=== PATIENT | female | born 1970 | race Caucasian/White ===

== ENCOUNTER 2022-10-05 13:32 | Observation (INO) | payer OTHER, SELFPAY ==
--- NOTE | 2022-09-28 23:02 | HP.PCM_ITS ---
History and Physical Date of Admission: 09/29/22 HISTORY OF PRESENT ILLNESS 52 year old woman presents with increasing pain and redness and swelling right axilla that started a couple months ago.? She has had I&D procedures by Dr. Arita.? She works in Housekeeping at [employer] and states she may be allergic to the chemicals used for cleaning.? She has a history of eczema and had been on Dupixent in the past.? She thinks the eczema has worsened recently since the development of her right axillary hidradenitis.? She has an appointment to see a Chairperson Anesthesiology for this eczema.? At present, she denies fever.? She denies trauma.? She has had some drainage from the right axillary area when there is a flare up of the hidradenitis.? She presents at this time for further evaluation and treatment. PAST MEDICAL HISTORY Bunion Eczema Seasonal allergies PAST SURGICAL HISTORY History of bunionectomy ALLERGIES azithromycin clindamycin MEDICATIONS doxycycline hyclate oxycodone-acetaminophen (Percocet) FAMILY HISTORY Son - Epilepsy, Seizures SOCIAL HISTORY Smoking Status:? Never smoker alcohol intake:? never substance use type:? does not use REVIEW OF SYSTEMS General - Denies fever, fatigue, and weight loss. Eyes - Denies cataracts and glaucoma. ENT - Denies nasal congestion and sore throat.? Has chronic sinusitis. Endocrine - Denies excessive thirst and urination. Skin - Denies suspicious lesions and skin cancer. ? Has right axillary hidradenitis. ? Has intermittent eczema flare ups. Musculoskeletal - Denies joint pain, joint stiffness, weakness of muscles and joints, back pain, and arthritis. Neuro - Denies headaches. Cardiovascular - Denies chest pain, fatigue, and shortness of breath with exertion. Psych - Denies anxiety and depression. Respiratory - Denies chronic cough and shortness of breath. Gastrointestinal - Denies nausea, vomiting, diarrhea, and constipation. Hematologic - Denies abnormal bruising and bleeding.? Has anemia. Genitourinary - Denies hematuria and urinary frequency. PHYSICAL EXAMINATION General - Alert and Oriented. HEENT - PERRL. EOMI.? Throat is clear.? No suspicious lesions noted. Neck - Supple and nontender.? No cervical adenopathy. ? No suspicious lesions noted. Lungs - Clear to auscultation. Heart - Regular rate and rhythm. Abdomen - Soft and nondistended. Extremities - FROM. No axillary adenopathy.? Radial pulses are palpable. ? In the right axilla is an area of redness, induration, and pain indicative of flare up of hidradenitis. ? I could not express drainage today.? The area of infection measures 6 x 8 cm.? No fluctuance.? No purulent drainage.? No other suspicious lesions noted. Neuro - CN II-XII grossly intact. Psych - Normal mood and affect. ASSESSMENT 1.? Right axillary hidradenitis. 2.? Eczema. PLAN Patient has right axillary hidradenitis with associated pain.? With the extent of scarring and induration and pain, I recommend operative intervention with surgical preparation right axilla with excision hidradenitis. Tissue would be sent to Pathology for analysis to rule out carcinoma and to Microbiology for culture.? A positive culture will necessitate antibiotic therapy. The wound will be left open and wound care started with the VAC which gets changed three times per week at 150 mmHg continuous suction. Will schedule the surgery in the next couple of weeks under general anesthesia with a surgical observation overnight stay in the hospital. After discharge, will followup at the Wound Center.? If there is a plateau in the healing process, can proceed with delayed closure with skin grafting. Today I just placed dry ABD pad over the axillary hidradenitis. She has an appt with her Chairperson Anesthesiology within a month for her eczema. Will write a script for Doxycycline which she will take now until the surgery and also will use for flare ups of hidradenitis in the future. Will write a script for Percocet for pain (14 tabs), twice a day. Patient was informed of the risks and complications of the procedure including alternatives to surgery.? These were discussed with the patient personally.? Patient voices understanding and wishes to proceed. Some of the risks and complications were included in a form from the [place] [employer]. Potential risks and complications included but not inclusive of bleeding, infection, seroma, hematoma, bruising, swelling, prolonged need for drains, loss of sensation to skin, wound breakdown, need for wound care, poor scarring, poor aesthetic outcome, intra operative cardiac or neurologic events, DVT, PE, and reaction to anesthesia. Assessment & Plan Assessment/Plan (1) Right axillary hidradenitis: (2) Eczema:
[2022-09-29 11:51] VITALS: BP 136/89; PULSE 73; RESP 16; TEMP 36.6; O2SAT 100; BMI 20.9
[2022-09-29] MEDS: Lactated Ringers 1,000 ML 15 ML IV (11:53)
[2022-10-05] VITALS (11 sets, daily range): BP systolic 106–148; BP diastolic 62–95; PULSE 59–96; RESP 16–20; TEMP 36.7–37.3; O2SAT 96–100; BMI 21.3
--- NOTE | 2022-10-05 | HID_PTH ---
PATIENT: KRISTIN SOTO LOC: MS3 U#:[id number] AGE/SX: 52/F ROOM: [facility] RE10/05/[address]: Dr. Sahil Morris MD : 1970 BED: 1 DIS: 10/06/2022 SPEC #: [id number] RECD: 10/05/22 16:54 STATUS: ADAN AL #: [id number] JULI: 10/05/22 00:[address]: Sahil Morris DEPT: SURGICAL PATHOLOGY RECD BY: Stuart Petty ENTERED: 10/06/22 09:49 SP TYPE: Hidradenit PAMELA DR: Nancy Wynn, ADY-Korey Tissues: Axillary tail of breast Procedures: Surgery Specimen Level III HEADER OPERATION: Surgical preparation axilla with excision hidradenitis PRE-OP DIAGNOSIS: Right axillary hidradenitis, eczema TISSUE SUBMITTED: Right axillary hidradenitis MICROSCOPIC DIAGNOSIS Skin and soft tissue of right axilla, excision: Dilated sweat glands and focal changes consistent with hidradenitis. AM:tara 10/09/2022 MICROSCOPIC DESCRIPTION Slides are reviewed. GROSS DESCRIPTION Received in fixative is one container labeled with the patient's name and designated right axillary hidradenitis. The specimen consists of a piece of skin with underlying tissue measuring 8.0 x 4.2 x 1.0 cm. No skin lesion is identified. Sections do not reveal any mass lesion. Aircraft Delivery Checker sections are submitted in four cassettes. / ALBERT:tara 10/06/2022 TC:3 CPT: 67424
[2022-10-05] MEDS: Lactated Ringers 1,000 ML 15 ML IV (10:57)
[2022-10-05] MEDS: Cefazolin 2 GM in 0.9% Normal Saline 100 ML IV (12:48)
[2022-10-05] MEDS: Lidocaine 1% /Epi 1:100 (20ml) 20 ML Vial (13:23)
--- NOTE | 2022-10-05 13:31 | PCM.OPRPT ---
Problems Associated Problem List Diagnoses (1) Right axillary hidradenitis: (2) Open wound of right axillary region: Report of Operation Date of Procedure: 10/05/22 Pre-Operative Diagnosis: Right axillary hidradenitis. Post-Operative Diagnosis: 1. Right axillary hidradenitis. 2. Open surgical hidradenitis wound right axilla. Surgery/Procedure Performed:: Surgical preparation right axilla with excision hidradenitis (60 cm2). Description of Surgical Findings:: 52 year old woman presents with increasing pain and redness and swelling right axilla that started a couple months ago.? She has had I&D procedures by Dr. Arita.? 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 She has a history of eczema and had been on Dupixent in the past.? She thinks the eczema has worsened recently since the development of her right axillary hidradenitis.? She has an appointment to see a Extended Insurance Clerk for this eczema.? At present, she denies fever.? She denies trauma.? She has had some drainage from the right axillary area when there is a flare up of the hidradenitis.? Patient was informed of the risks and complications of the procedure including alternatives to surgery. These were discussed with the patient personally. Patient voices understanding and wishes to proceed. Some of the risks and complications were included in a form from the [place] [employer]. Potential risks and complications included but not inclusive of bleeding, infection, hematoma, bruising, swelling, loss of sensation to skin, wound breakdown, need for wound care, poor scarring, poor aesthetic outcome, intra operative cardiac or neurologic events, DVT, PE, and reaction to anesthesia. Size of wound right axilla - 10 x 6 x 2 cm. Surgeon: Sahil Morris MD clinic nurse: None Type of Anesthesia: General Anesthesiologist: Ramón Harrison MD and Rodolfo Valverde CRNA Specimen's removed: Right axillary hidradenitis tissue to Pathology and Microbiology. Drains: None. Estimated Blood Loss (mL): 50. Description of Procedure: Patient was taken to OR in supine position and was placed under general anesthesia. The right axillary area was prepped and draped in the usual fashion. SCD's were placed for DVT prophylaxis. Perioperative antibiotics were given intravenously. Using xylocaine with epinephrine, the area of hidradenitis right axilla was infiltrated. After waiting 5 minutes for the anesthetic to take effect, I proceeded with surgical preparation right axilla with excision hidradenitis. Incisions were made into the subcutaneous tissue. No pus was seen. A lot of fat necrosis was present which was excised and debrided. Some exudate was seen as well that was excised and debrided. Dissection extended down to the muscle with some proximal extension onto the right arm. Some of the tissue was sent to Microbiology for culture. The rest of the tissue was sent to Pathology for analysis to rule out carcinoma. Hemostasis was obtained with electrocautery. The wound was irrigated with saline. The dimensions of the right axillary hidradenitis wound after excision was 10 x 6 x 2 cm or 60 cm2. The wound was dressed with Mepitel nonadherent dressing followed by Kerlix gauze and Betadine. This was followed by a dry Kerlix gauze and an ABD pad and a compression connie wrap. Medipore tape was used to secure the Kerlix gauze as well as to secure the connie wrap proximally and minimize the dressing from sliding downward. Patient tolerated the procedure well and was sent to PACU in satisfactory condition. Patient will be sent upstairs for continued postop care. The VAC will be applied tomorrow. She can be discharged when she is tolerating po analgesia and when the VAC is approved. Home Health will be set up to assist with the VAC changes. After discharge she will followup at the Wound Center. Anticipate in about 3-4 weeks, the open surgical hidradenitis wound will be superficial enough to proceed with further operative debridement and skin grafting. If the operative culture is positive than antibiotic modification may be necessary. Depending on the organism present, IV antibiotics may be necessary through a PICC line. Grafts/Implants Used: None. Procedure Start Time: 13:10 Procedure Stop Time: 13:28 Complications None. Admit VTE Documentation VTE Present on Admission: No VTE Mechan Device Prophylaxis: SCD's VTE Pharm Prophylaxis ordered?: Yes Addendum Addendum: Surgery Charges CPT - 16529 ICD-10 - L73.2, S41.101A
[2022-10-05] MEDS: Ondansetron 4 MG/2 ML Vial IV (17:02)
[2022-10-05] MEDS: Docusate Sodium 100 MG Capsule PO (20:16)
[2022-10-05] MEDS: Cefazolin 1 GM/50 ML BAG IV (22:01)
[2022-10-06 03:27] VITALS: BP 125/70; PULSE 67; RESP 18; TEMP 36.9; O2SAT 98
[2022-10-06] MEDS: Cefazolin 1 GM/50 ML BAG IV ×2 (05:35→13:59)
[2022-10-06 06:16] LABS: Hematocrit 36.2 % (37-47); Hemoglobin 11.5 g/dL (12.0-15.0); Mean Corp Hgb Conc 31.8 g/dL (32-36); Mean Corpuscular Hgb 25.8 pg (27.0-32.0); Mean Corpuscular Volume 81.2 fL (81-99); Mean Platelet Vol. 9.8 fl (6.2-12.0); Platelet Count 265 K/mm3 (150-450); RBC Distribution Width CV 13.6 % (11.6-14.6); Red Blood Count 4.46 M/mm3 (4.2-5.4); White Blood Count 7.7 K/mm3 (4.4-11.0)
[2022-10-06 07:25] LABS: Anion Gap 7 (5-15); BUN 9 mg/dL (7-18); BUN/Creat Ratio 12.9 RATIO (10-20); Chloride 106 mmol/L (98-107); EST Glomerular Filtration Rate 94 mL/min (>60); Est Glom Filt Rate - Afr Amer 114 mL/min (>60); Estimated Creatinine Clearance 85.56 ml/min; Glucose 134 mg/dL (74-106); Potassium 3.9 mmol/L (3.5-5.1); Prealbumin 26.8 mg/dL (20.0-40.0); Sodium Level 136 mmol/L (136-145)
[2022-10-06 07:47] VITALS: BP 124/85; PULSE 75; RESP 18; TEMP 36.6; O2SAT 98
[2022-10-06] MEDS: Enoxaparin 40 MG/0.4 ML Syringe SC (08:03)
[2022-10-06] MEDS: Juven (unflavored) Packet 1 PACKET PO (08:03)
--- NOTE | 2022-10-06 08:45 | CASEMGMT ---
Addendum entered by Federica Guerrero 10/06/22 13:57: Received denials from [facility] Sherri, Tara, Lisa, [facility], and [facility]. [facility] to [place] but can see pt in her home in [place]. ERICA SCHUSTER into pt room to discuss this. Pt states she will plan to stay with her parents over the weekend only then return home and her mother will come to her home. She does not want to be alone initially. Pt is aware she needs to be at her home in [place] for visits not just coming home for them. Pt is aware that she has not met her deductible yet and this needs to be done prior to [facility] visits being covered. Approx $1662 is left. Pt is agreeable to this. Pt denies further needs. Spoke with ADY Lundberg. She will see pt at the wound center on Wednesdays. Pt is aware. TC to Sita, they will see pt on Sunday for wound vac change. Addendum entered by Federica Guerrero 10/06/22 10:18: Received tc back from pt mother. She states to send referral to agencies starting at top of list and she has no preference of agency. Addendum entered by Federica Guerrero 10/06/22 09:49: TC to pt mother, she is not at home, gave call back info and requested call back. Original Note: ERICA SCHUSTER Assessment: Face to Face with pt for initial transition planning/care coordination assessment. ERICA SCHUSTER introduced self and role at [facility], pt voices understanding and consents to assessment. Pt is A/O x4 and answers all questions appropriately at this time. Pt sitting up in bed in no distress. Care providers, pharmacy, and demographics verified/updated. Admitting Dx: Rt excision hidradenitis axilla PCP:[facility] Specialists:Arturo, plastic OR; Juan J, OR Preferred Pharmacy: [facility] Retail Insurance: MMO Prescription Benefit: yes LNOK: Mic and Nargis Granado, parents Living Arrangements: Pt will be staying at her parents home which is a two story home with no steps to enter. Pt reports she is I in ADL's and denies concerns at home. Transportation: Pt drives self and denies concerns with transportation. DME/HHC/SNF: Pt denies having any DME in the home, previous HHC or SNF stays. Pt states no concerns with going home at time of dc. Discussed HHC for wound vac for pt. Patient was provided a list of HHC providers including quality and resource use data and consistent with the patient?s preferred geographic region, medical needs, and insurance network were provided from the [employer] Guide. Pt would like this RN CM to call her mother to pick the agency for her and requests the call be after 9:30am. Pt states no further concerns/needs. CM to follow. Advised pt to ask CM if any further question/concerns/needs arise, voices understanding. Pt Goal: To parents home with HHC Plan: To parents home with HHC, wound vac already approved.
--- NOTE | 2022-10-06 08:49 | WOUNDNOTE ---
wound photo: right axilla
[2022-10-06] MEDS: Acetaminophen 325 MG Tablet 650 MG PO (12:21)
--- NOTE | 2022-10-06 13:56 | PCM.DC ---
Discharge Instructions Diet Discharge Diet: No restrictions (encourage increased protein intake to help with wound healing) Activity Discharge Activity: May Not Shower May resume sexual activity in: 10-14 days Lifting Restrictions: 20 lb weight lifting restriction Additional Activity Instructions:: May drive when not taking pain medication or Diazepam Dressing / Incision Call your doctor if your incision/area has: Continuous Slow Oozing, Sudden Increased Bleeding, Increased Pain/ Swelling, Increased Redness and Foul Smelling Discharge Call your doctor if you observe: Fever of 101 or Higher, Inability to urinate, Inability to have a bowel movement, Shortness of breath, Chest pain, Calf discomfort and Uncontrolled pain Change Dressing in: do not change dressing Additional Dressing/Incision Instructions:: Wound VAC at 150 mmHg to be changed 3 times per week. At the time of dressing change, wash the wound and tia wound with soap and water. May shower before the dressing change when you feel comfortable removing the wound VAC dressing. Follow Up Care Please Follow Up With: Tamika Pimentel NP, TESTING PROJECTS ADMINISTRATOR-C When: Sunday at 8:30 at the wound center. The wound healing center phone number is [phone]. Test Results: Test results from this visit will be discussed in further detail at your follow-up appointment, if applicable. Discharge Plan Admission Admit Date/Time: 10/05/22 13:32 Attending Provider: Sahil Morris Primary Care Provider: Nancy Wynn NP Discharge Orders/Prescriptions Prescriptions: New doxycycline monohydrate 100 mg tablet 100 mg PO BID 14 Days Qty: 28 1RF oxycodone-acetaminophen [Endocet] 5-325 mg tablet 1 tab PO 4X/DAY PRN (Reason: pain (scale score 7-10)) 7 Days Qty: 28 0RF docusate sodium [Colace] 100 mg capsule 100 mg PO BID 30 Days Qty: 60 0RF promethazine 25 mg tablet 25 mg PO TID PRN (Reason: nausea and vomiting) 10 Days Qty: 30 0RF Referrals / Follow Up: Nancy Wynn NP, ADY-C [Primary Care Provider] - Disposition Disposition (needs filled in before D/C Order can be placed): Home, Self Care
[2022-10-06 14:01] VITALS: BP 121/73; PULSE 74; RESP 16; TEMP 36.6
--- NOTE | 2022-10-06 15:24 | PCM.PN.SRG ---
Subjective Subjective Postop #1 Patient sitting up in chair. She states that her pain is well controlled. Objective Data Objective Data Vital Signs: Vital Signs Temp Pulse Resp BP Pulse Ox O2 Del Method 97.8 F 74 16 121/73 H 98 Room Air 10/06/22 14:01 10/06/22 14:01 10/06/22 14:01 10/06/22 14:01 10/06/22 07:47 10/06/22 14:01 Oxygen Delivery Method Room Air Weight: 128 lb 4.944 oz Body Mass Index (BMI) 21.3 Intake & Output: Intake and Output for Last 24 Hours 10/04/22 10/05/22 10/06/22 23:59 23:59 23:59 Intake Total 580 / 580 100 / 100 Output Total 50 / 50 Balance 530 / 530 100 / 100 Lab / Micro Data Result Diagrams: 10/06/22 06:10 10/06/22 06:10 Labs: Laboratory Results - last 24 hr 10/06/22 06:10: WBC 7.7, RBC 4.46, Hgb 11.5 L, Hct 36.2 L, MCV 81.2, MCH 25.8 L, MCHC 31.8 L, RDW Std Deviation 40.0, RDW Coeff of Paul 13.6, Plt Count 265, MPV 9.8 10/06/22 06:10: Sodium 136, Potassium 3.9, Chloride 106, Carbon Dioxide 23.0, Anion Gap 7, BUN 9, Creatinine 0.70, Estim Creat Clear Calc 85.56, Est GFR (MDRD) Af Amer 114, Est GFR (MDRD) Non-Af 94, BUN/Creatinine Ratio 12.9, Glucose 134 H, Calcium 9.0, Prealbumin 26.8 Micro: Microbiology 10/05/22 13:45 Tissue - Axilla, Right Wound Culture - Preliminary No growth-Final to follow Physical Exam Const alert and oriented x3 General Appearance: cooperative Eyes General Eye: normal appearance of both eyes Resp normal respiratory effort Effort and Inspection: able to speak in complete sentences Cardio regular rate Back/Spine normal ROM Extremity normal capillary refill Skin Wound Narrative: Right axilla wound with no active bleeding. Operative dressing removed and wound VAC placed. Neuro oriented x3 Psych mental status grossly normal, thought process normal and cooperative Assessment & Plan Assessment/Plan (1) Open wound of right axillary region: (2) Right axillary hidradenitis: (3) Other acute postprocedural pain: PLAN: Plan Patient states pain is controlled with oral pain medication. Operative dressing removed, no active bleeding. Wound VAC at 150 mmHg applied. She tolerated the dressing change well. Home health has been ordered to help with dressing changes 3 times per week. Operative wound cultures are pending. Will send her home on Doxycycline 100 mg BID. Prescribed Percocet 5 mg (28 tabs) to be taken up to 4 x/day as needed for pain. Unable to prescribe Valium for muscle spasm due to her allergy to Midazolam. She is to follow up on Sunday10/11/22 at 0830 at the Wound center with me for evaluation and a wound VAC change. She may be discharged home today once home health is established.
== END 2022-10-06 17:01 | disposition home health service (06) ==
LOC: SDC 15:36 → MS3 15:36
PROVIDERS: Admitting Provider Surgery; PCP Nurse Practitioner Family; Referring Provider Surgery; Visit Provider Surgery
PROC: (CPT 11451; principal; 2022-10-05 11:45)
DX: L73.2 Hidradenitis suppurativa (principal); L30.9 Dermatitis, unspecified
CPT/HCPCS: 11451; 00400; 36415; 80048; 84134; 85027; 87070; 87075; 87077; 87102; 87176; 87186; 87205; 87206; 88304; 94668; 96365; 96366; 96372; 96375; 97165; 99221; J7120; G0378; J2405

== ENCOUNTER 2022-10-18 08:30 | Outpatient (RCR) | payer OTHER, SELFPAY ==
[2022-10-11 08:37] VITALS: BP 132/82; PULSE 89; RESP 16; TEMP 36.2; BMI 21.1
--- NOTE | 2022-10-11 09:21 | PCM.WC.HP ---
History of Present Illness Date of Service: 10/11/22 Chief Complaint: right axilla Hidradenitis excision History of Wound: 52 year old woman presents with increasing pain and redness and swelling right axilla that started a couple months ago. She has had I&D procedures by Dr. Arita. 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 She has a history of eczema and had been on Dupixent in the past. She thinks the eczema has worsened recently since the development of her right axillary hidradenitis. She saw a Environmental Web Crawler for the eczema. Surgery 10/05/22 - Surgical preparation right axilla with excision hidradenitis (60 cm2). She was discharged on 10/06/22 with home health to assist with the wound VAC dressing changes 3 times per week. Preliminary operative cultures positive for Staphylococcus epidermidis. Waiting for sensitivities. She is currently on Doxycycline. At present, she denies fever, chills, nausea, vomiting. Progress of Wound: Right axilla incision is pink. No active bleeding. Mariaelena wound is stable. She is very anxious. She is also complaining about her pink eye getting bad again. They are red and itchy, she has been using eye drops for about a week and she states initially they got better and now they have gotten worse. [facility] Medical History Anemia Anxiety Bunion Eczema Non-smoker Open wound of right axillary region Post-menopausal Restless legs Seasonal allergies Wears glasses Home Medications docusate sodium 100 mg capsule (Colace) 100 mg PO BID 30 days #60 caps 10/06/22 [Rx Last Taken Unknown] doxycycline monohydrate 100 mg tablet 100 mg PO BID 14 days #28 tabs 10/06/22 [Rx Last Taken Unknown] oxycodone-acetaminophen 5 mg-325 mg tablet (Endocet) 1 tab PO 4X/DAY PRN pain (scale score 7-10) 7 days #28 tabs 10/06/22 [Rx Last Taken Unknown] promethazine 25 mg tablet 25 mg PO TID PRN nausea and vomiting 10 days #30 tabs 10/06/22 [Rx Last Taken Unknown] linezolid 600 mg tablet 600 mg PO Q12H 14 days #28 tabs 10/12/22 [Rx Last Taken Unknown] diazepam 5 mg tablet (Valium) 5 mg PO BID PRN muscle spasm 7 days #14 tabs 10/13/22 [Rx Last Taken Unknown] gabapentin 100 mg capsule (Neurontin) 200 mg PO BID 30 days #120 caps 10/13/22 [Rx Last Taken Unknown] Allergy/AdvReac Type Severity Reaction Status Date / Time azithromycin Allergy Intermediate Hives Verified 10/11/22 08:55 clindamycin Allergy Intermediate Hives Verified 10/11/22 08:55 midazolam [From Versed] Allergy Rash Verified 10/11/22 08:55 Family History (Reviewed 10/13/22 @ 17:08 by Tamika Pimentel BENCH LAY OUT TECHNICIAN, BENCH LAY OUT TECHNICIAN-C) Son Epilepsy Seizures Surgical History (Reviewed 10/13/22 @ 17:08 by Tamika Pimentel BENCH LAY OUT TECHNICIAN, BENCH LAY OUT TECHNICIAN-C) History of bunionectomy Social History (Reviewed 10/13/22 @ 17:08 by Tamika Pimentel BENCH LAY OUT TECHNICIAN, BENCH LAY OUT TECHNICIAN-C) Smoking Status: Never smoker alcohol intake: never substance use type: does not use additional social history: Does Take Aspirin Does Take Ibuprofen ROS Constitutional Constitutional: Denies fever(s) Eyes Eyes: Reports none ENT HEENT: Reports none Cardiovascular Cardiovascular: Denies chest pain or dyspnea Respiratory/Chest Respiratory/Chest: Denies cough or dyspnea Gastrointestinal Gastrointestinal: Reports none Musculoskeletal Musculoskeletal: Reports as per HPI Integumentary Integumentary: Reports as per HPI Neurologic Neurologic: Denies headache(s) Psychiatric Psychiatric: Reports anxiety Endocrine Endocrinology: Reports none Allergic/Immunologic Allergic/Immunologic: Reports as per HPI and eczemia Vital Signs Vital Signs Vital Signs: 10/11/22 08:37 Temperature 97.2 F L Temperature Source Temporal Pulse Rate 89 Respiratory Rate 16 Blood Pressure 132/82 H Blood Pressure Mean 98 Blood Pressure Source Monitor Weight Weight: 126 lb 12.519 oz Body Mass Index (BMI) 21.1 Physical Exam Const alert and oriented x3 General Appearance: cooperative and anxious Orientation / Consciousness: awake, oriented to person and oriented to place HEENT normocephalic Head and Scalp: atraumatic Eyes Eyes Narrative: Bilateral eye with pink sclera and conjunctiva. They are itchy and she keeps rubbing them. Neck full ROM Resp normal respiratory effort, normal air movement and clear to auscultation bilaterally Effort and Inspection: able to speak in complete sentences Cardio regular rate and regular rhythm GI soft to palpation and non-tender Back/Spine normal ROM Extremity Extremity Narrative: She is not doing full range of motion of right shoulder due to pain. Peripheral Pulses: Yes pulses 2+ throughout Skin Wound Narrative: Right axilla wound is pink and stable. Neuro oriented x3 Psych cooperative Psych Narrative: Patient is very anxious about the ulcer and the care. Appearance: grossly normal Mood & Affect: anxious Debridement Note Debridement Note Wound debrided: axilla Laterality: Right No debridement was completed: No debridement was completed today Post-Debridement Measurements and Additional Note: Post-Debridement Measurements/Treatment - Nurse 1 - General Ulcer Assessment Start: 10/11/22 08:36 Freq: Status: Active Protocol: JOSÉ Activity Type Activity Date Activity User E-sign Co-sign Detail Recorded Client Recorded Date Recorded By Document 10/11/22 08:37 DL [id number] 10/11/22 08:50 DL 10/11/22 08:37 WC - Today's Visit Information Type of service Initial Visit Arrival Mode Ambulatory Transfer Assistance None Patient Identification Verified (Name & Yes ) Patient Requires Transmission-Based No Precautions Height and Weight Height 5 ft 5 in Weight 126 lb 12.519 oz Weight in Pounds 126.8 lbs Body Mass Index (BMI) 21.1 BMI Classification Normal BSA - Michael 1.63 Vital Signs Temperature (97.8 F-99.1 F) 97.2 F L Temperature Source Temporal Pulse Rate (60-100) 89 Pulse Location Monitor Respiratory Rate (12-18) 16 Respiratory rate source Observation Blood Pressure (90/60-120/80) 132/82 H Blood Pressure Mean 98 Source Monitor Pain Scale: 0-10 Numeric Is Patient Pain Free? Yes Communication Assessment Preferred language Belarusian Able to Read Yes Able to Write Yes Right Hearing Abillity Normal Left Hearing Abillity Normal Visual Assistive Devices Glasses Teaching Assessment Preferences Verbal,Written, Demonstration Barriers to Learning None Readiness To Learn Good Willingness to Engage in Self Management Med Activies Readiness to Engage in Self Management Med Activities Anxiety Level Anxious Cooperation Cooperative Perception Coherent Interest in Health Problem Asks Questions Education Importance Acknowledges Need Does Patient Smoke tobacco or other No substances Smoking Status Never smoker Is Patient Diabetic No Functional Assessment Recent Decline in Ability to Perform Denies Any Declines,Upper Body Dressing Culture/Amish/Senior Peoplesoft Developer Cultural/Amish Needs that may affect No Treatment Plan Would you allow our hospital power station operator to No meet you for the purpose of spiritual/ emotional support? Senior Peoplesoft Developer to contact place of latter day No Teaching: Wound Center Discharge Instructions -Person Taught Patient Dressing Your Wound -Person Taught Patient *Welcome to the Wound Center -Person Taught Patient WC - Nurse 1 - General Ulcer Measurement Start: 10/11/22 08:36 Freq: Status: Active Protocol: Activity Type Activity Date Activity User E-sign Co-sign Detail Recorded Client Recorded Date Recorded By Document 10/11/22 08:37 DL [id number] 10/11/22 08:50 DL 10/11/22 08:37 Wound Center Nurse 1 #1 R Axilla -Current Size (cm) - Length 6 -Current Size (cm) - Width 5 -Current Size (cm) - Depth 2.3 -Total Square Cm 30 -Photo Taken Yes -Exudate Amt Medium -Exudate Type Serosanguineous -Wound Margin Distinct, Outline Attached -Granulation Amt Medium (34-66%) -Granulation Quality Red -Necrosis Amt Medium (34-66%) -Necrotic Tissue Type Adherent Slough -Structure Exposed N/A -Texture (Mariaelena-wound Skin Appearance) Excoriation, Scarring,Rash -Moisture (Mariaelena-wound Skin Appearance) No Abnormality -Color (Mariaelena-wound Skin Appearance) No Abnormality -Temperature (Mariaelena-wound Skin No Abnormality Appearance) (Pt Warm) -Ulcer Cleansing Soap and Water -Foul Odor after Cleansing No -Anesthetic Used 4% Lidocaine Solution WC - Nurse 2 - General Ulcer CM Notes Start: 10/11/22 08:36 Freq: Status: Active Protocol: Activity Type Activity Date Activity User E-sign Co-sign Detail Recorded Client Recorded Date Recorded By Document 10/11/22 09:05 JF [id number] 10/11/22 09:12 JAIME 10/11/22 09:05 Wound Center Nurse 2 -Correct Patient No -Correct Side, Site, Position No -Correct Procedure No -Procedure Performed No -Wound/Ulcer Outcome Not Healed Pain Scale: 0-10 Numeric Is Patient Pain Free? Yes Charges/Coding Procedures Integumentary 111xxx-113xx: 22081 Global Visit Assessment/Plan Assessment/Plan (1) Open wound of right axillary region: CODE(S): S41.101A - Unspecified open wound of right upper arm, initial encounter (2) Right axillary hidradenitis: CODE(S): L73.2 - Hidradenitis suppurativa (3) Other acute postprocedural pain: CODE(S): G89.18 - Other acute postprocedural pain PLAN: Plan Patient evaluated at the wound healing center today. Wound care - Wound VAC at 150 mmHg to be changed 3 times per week. The wound and mariaelena wound should be washed with soap and water at the time of the dressing changes and then pat dry. She forgot to bring foam for the VAC to be replaced. Will place Dakins 0.25% moistened gauze covered with ABD. Home health can place VAC dressing tomorrow and then a change on Sunday. Preliminary operative culture shows Staphylococcus epidermidis, waiting for sensitivity. She is currently on Doxycycline. Encouraged range of motion of her right shoulder to help prevent her shoulder from getting stiff. She is having difficulty with full ROM of her right shoulder. Demonstrated how she should move her shoulder. Instructed her to contact her eye doctor for an appointment either today or tomorrow to have her eye irritation evaluated. Instructed her to stop the antibiotic eye drops and start OTC moisturizing eye drops. She is extremely anxious. She is having a difficult time understanding instructions because she is so anxious. Discussed starting her on Lexapro at least for a short period of time to help her get through this situational stress. Follow up one week. Call or come in sooner if have any concerns.
--- NOTE | 2022-10-17 07:34 | WC ---
Dianelys from [facility] called to inform us about a drug interaction she ran on patient's new Linezolid about interaction with tyramine foods processed meats. Spoke to Tamika Pimentel QUARTER BACKER about this who did discuss with pharmacy and they said with her being on the new ATB, she is to avoid cured, smoked processed meats like sausage, hot dogs, lunch meat including foods like pickled foods. Basically stick with fresh meats. Called Dianelys back to inform her on the new findings and to have the patient educated on Weds visit these new findings. Left a detailed voicemail on Dianelys's confidential work phone.
[2022-10-18 08:33] VITALS: BP 135/89; PULSE 71; RESP 20; TEMP 36.1; BMI 21.1
--- NOTE | 2022-10-18 09:42 | PCM.WC.PN ---
History of Present Illness Date of Service: 10/18/22 Chief Complaint: right axilla Hidradenitis excision History of Wound: 52 year old woman presents with increasing pain and redness and swelling right axilla that started a couple months ago. She has had I&D procedures by Dr. Arita. 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 She has a history of eczema and had been on Dupixent in the past. She thinks the eczema has worsened recently since the development of her right axillary hidradenitis. She saw a Middleware Consultant for the eczema. Surgery 10/05/22 - Surgical preparation right axilla with excision hidradenitis (60 cm2). She was discharged on 10/06/22 with home health to assist with the wound VAC dressing changes 3 times per week. Preliminary operative cultures positive for Staphylococcus epidermidis. Waiting for sensitivities. She is currently on Doxycycline. At present, she denies fever, chills, nausea, vomiting. Progress of Wound: Right axilla incision is pink and stable. No active bleeding. Mariaelena wound is erythematous because when her wound VAC was placed on Sunday, they did not place drape on her skin before bridging the foam, therefore the foam caused irritation to her skin. She has very sensitive skin. She continues to be very anxious. She saw her senior informatica etl developer and she is having an allergic reaction and they gave her different eye drops. Objective Data Objective Data Vital Signs: Vital Signs Temp Pulse Resp BP 97 F L 71 20 H 135/89 H 10/18/22 08:33 10/18/22 08:33 10/18/22 08:33 10/18/22 08:33 Weight: 126 lb 12.519 oz Body Mass Index (BMI) 21.1 Charges/Coding Procedures Integumentary 111xxx-113xx: 70568 Global Visit Debridement Note Debridement Note No debridement was completed: No debridement was completed today Post-Debridement Measurements and Additional Note: Post-Debridement Measurements/Treatment WC - Nurse 1 - General Ulcer Assessment Start: 10/11/22 08:36 Freq: Status: Active Protocol: JOSÉ Activity Type Activity Date Activity User E-sign Co-sign Detail Recorded Client Recorded Date Recorded By Document 10/11/22 08:37 DL [id number] 10/11/22 08:50 DL Document 10/18/22 08:33 DL [id number] 10/18/22 08:43 DL 10/11/22 10/18/22 08:37 08:33 WC - Today's Visit Information Type of service Initial Visit Follow-up Visit (Physician/HAND FUR CLEANER ) Arrival Mode Ambulatory Ambulatory Transfer Assistance None None Patient Identification Verified (Name & Yes Yes ) Patient Requires Transmission-Based No No Precautions Height and Weight Height 5 ft 5 in Weight 126 lb 12.519 oz Weight in Pounds 126.8 lbs Body Mass Index (BMI) 21.1 21.1 BMI Classification Normal Normal BSA - Michael 1.63 Vital Signs Temperature (97.8 F-99.1 F) 97.2 F L 97 F L Temperature Source Temporal Temporal Pulse Rate (60-100) 89 71 Pulse Location Monitor Monitor Respiratory Rate (12-18) 16 20 H Respiratory rate source Observation Observation Blood Pressure (90/60-120/80) 132/82 H 135/89 H Blood Pressure Mean (mm Hg) 98 104 Source Monitor Monitor History Since Last Visit- (Skip if this is Patient's initial visit) Have you changed medications since your No last visit? Any new allergies or adverse reactions No Had a fall/change in ADL's that may No increase risk of falls Signs or symptoms of abuse and/or No neglect since last visit Have you been in the hospital since your No last visit? Has dressing in place as prescribed Yes Has compression in place as prescribed N/A Has offloadiing in place as prescribed N/A Experienced any changes in pain level or No management Pain Scale: 0-10 Numeric Is Patient Pain Free? Yes Yes Communication Assessment Preferred language Croatian Able to Read Yes Able to Write Yes Right Hearing Abillity Normal Left Hearing Abillity Normal Visual Assistive Devices Glasses Teaching Assessment Preferences Verbal,Written, Demonstration Barriers to Learning None Readiness To Learn Good Willingness to Engage in Self Management Med Activies Readiness to Engage in Self Management Med Activities Anxiety Level Anxious Cooperation Cooperative Perception Coherent Interest in Health Problem Asks Questions Education Importance Acknowledges Need Does Patient Smoke tobacco or other No substances Smoking Status Never smoker Is Patient Diabetic No Functional Assessment Recent Decline in Ability to Perform Denies Any Declines,Upper Body Dressing Culture/Caodaism/Outpatient Coder Cultural/Caodaism Needs that may affect No Treatment Plan Would you allow our hospital roundhouse worker to No meet you for the purpose of spiritual/ emotional support? Outpatient Coder to contact place of rastafarian No Teaching: Wound Center Discharge Instructions -Person Taught Patient Dressing Your Wound -Person Taught Patient *Welcome to the Wound Center -Person Taught Patient - Nurse 1 - General Ulcer Measurement Start: 10/11/22 08:36 Freq: Status: Active Protocol: Activity Type Activity Date Activity User E-sign Co-sign Detail Recorded Client Recorded Date Recorded By Document 10/11/22 08:37 DL [id number] 10/11/22 08:50 DL Document 10/18/22 08:33 DL [id number] 10/18/22 08:43 DL 10/11/22 10/18/22 08:37 08:33 Wound Center Nurse 1 #1 R Axilla -Current Size (cm) - Length 6 5 -Current Size (cm) - Width 5 6 -Current Size (cm) - Depth 2.3 1.5 -Total Square Cm 30 30 -Photo Taken Yes No -Exudate Amt Medium Medium -Exudate Type Serosanguineous Serosanguineous -Wound Margin Distinct, Distinct, Outline Outline Attached Attached -Granulation Amt Medium (34-66%) Large (67-100%) -Granulation Quality Red Red -Necrosis Amt Medium (34-66%) Small (1-33%) -Necrotic Tissue Type Adherent Slough Adherent Slough -Structure Exposed N/A N/A -Texture (Mariaelena-wound Skin Appearance) Excoriation, Excoriation, Scarring,Rash Rash -Moisture (Mariaelena-wound Skin Appearance) No Abnormality No Abnormality -Color (Mariaelena-wound Skin Appearance) No Abnormality No Abnormality -Temperature (Mariaelena-wound Skin No Abnormality No Abnormality Appearance) (Pt Warm) (Pt Warm) -Tenderness on Palpation (Mariaelena-wound No Skin Appearance) -Ulcer Cleansing Soap and Water Soap and Water -Foul Odor after Cleansing No No -Anesthetic Used 4% Lidocaine 4% Lidocaine Solution Solution NASRA - Nurse 2 - General Ulcer CM Notes Start: 10/11/22 08:36 Freq: Status: Active Protocol: Activity Type Activity Date Activity User E-sign Co-sign Detail Recorded Client Recorded Date Recorded By Document 10/11/22 09:05 [id number] 10/11/22 09:12 Document 10/18/22 09:00 [id number] 10/18/22 09:03 10/11/22 10/18/22 09:05 09:00 Wound Center Nurse 2 #1 R Axilla -Time 09:00 -Correct Patient No No -Correct Side, Site, Position No No -Correct Procedure No No -Procedure Performed No No -Tunneling No -Undermining/Tunneling No -Circular Undermining No -Wound/Ulcer Outcome Not Healed Not Healed -Ulcer Cleansing Rinsed/ Irrigated with Saline -Foul Odor after Cleansing No -Bioengineered Tissue No -Bleeding Controlled with NA -Offloading No Pain Scale: 0-10 Numeric Is Patient Pain Free? Yes Yes - Nurse 3 - General Ulcer D/C NN Start: 10/11/22 08:36 Freq: Status: Active Protocol: Activity Type Activity Date Activity User E-sign Co-sign Detail Recorded Client Recorded Date Recorded By Document 10/11/22 09:47 [id number] 10/11/22 09:48 10/11/22 09:47 Wound Care Center Nurse 3 #1 R Axilla -Ulcer Cleansing Rinsed/ Irrigated with Saline -Foul Odor after Cleansing No -Other Dressing dakin's -Primary Dressing Covered/Secured with Dry Gauze & Roll Gauze, Secured with Tape Right -Tubular Bandage Single Layer -Size of Tubigrip Used Size D -Size D ($) 1 Pain Scale: 0-10 Numeric Is Patient Pain Free? Yes - Visit Discharge Discharge Condition Stable Ambulatory Status Ambulatory Transportation Private Auto Accompanied by mom Medication Reconcilliation completed & Yes provided to patient/care provider Assessment/Plan Assessment/Plan (1) Open wound of right axillary region: CODE(S): S41.101A - Unspecified open wound of right upper arm, initial encounter (2) Right axillary hidradenitis: CODE(S): L73.2 - Hidradenitis suppurativa (3) Other acute postprocedural pain: CODE(S): G89.18 - Other acute postprocedural pain PLAN: Plan Patient evaluated at the wound healing center today. Wound care - Wound VAC at 150 mmHg to be changed 3 times per week. The wound and mariaelena wound should be washed with soap and water at the time of the dressing changes and then pat dry. Home health has been notified that they need to place the drape properly before placing to bridge to prevent her skin from becoming irritated. Operative culture shows Had to change her medication to Linezolid. Encouraged range of motion of her right shoulder to help prevent her shoulder from getting stiff. She is having difficulty with full ROM of her right shoulder. Demonstrated how she should move her shoulder. Instructed her to contact her eye doctor for an appointment either today or tomorrow to have her eye irritation evaluated. Instructed her to stop the antibiotic eye drops and start OTC moisturizing eye drops. She is extremely anxious. She is having a difficult time understanding instructions because she is so anxious. Discussed starting her on Lexapro at least for a short period of time to help her get through this situational stress. Had to hold the Lexapro until she completes the Linezolid because it is contraindicated taking both of these medications at the same time. She also should avoid process meats/foods such as salami, pepperoni, lunch meat, sauerkraut, pickles, etc. Follow up one week. Call or come in sooner if have any concerns.
== END 2022-10-22 23:59 | disposition home or self-care (01) ==
LOC: WC 08:30
PROVIDERS: PCP Nurse Practitioner Family; Referring Provider Nurse Practitioner Family; Visit Provider Nurse Practitioner Family
DX: S41.101A Unspecified open wound of right upper arm, initial encounter (principal); G89.18 Other acute postprocedural pain; L30.9 Dermatitis, unspecified; L73.2 Hidradenitis suppurativa; F41.9 Anxiety disorder, unspecified; Z79.899 Other long term (current) drug therapy
CPT/HCPCS: 97606; 99213; 99214; G0463

== ENCOUNTER 2022-11-22 11:45 | Outpatient (RCR) | payer OTHER, SELFPAY ==
[2022-10-23 00:51] VITALS: BP 135/89; PULSE 71; RESP 20; TEMP 36.1; BMI 21.1
[2022-10-25 11:15] VITALS: BP 139/82; PULSE 76; RESP 20; TEMP 37.2; BMI 21.1
--- NOTE | 2022-10-25 12:35 | PN.PCM_ITS ---
History of Present Illness Date of Service: 10/25/22 Chief Complaint: right axilla Hidradenitis excision History of Wound: 52 year old woman presents with increasing pain and redness and swelling right axilla that started a couple months ago. She has had I&D procedures by Dr. Arita. 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 She has a history of eczema and had been on Dupixent in the past. She thinks the eczema has worsened recently since the development of her right axillary hidradenitis. She saw a Application Developer Manager for the eczema. Surgery 10/05/22 - Surgical preparation right axilla with excision hidradenitis (60 cm2). She was discharged on 10/06/22 with home health to assist with the wound VAC dressing changes 3 times per week. Preliminary operative cultures positive for Staphylococcus epidermidis. Waiting for sensitivities. She is currently on Doxycycline. At present, she denies fever, chills, nausea, vomiting. Progress of Wound: Right axilla incision is beefy pink and slightly smaller. No active bleeding. Mariaelena wound is no longer erythematous. She is not moving her right shoulder because of fear of pain and ripping the dressing off. She is very tearful and extremely anxious today. Her mother has concerns that she is taking too much pain medication and that the Gabapentin makes her extremely sleepy. Objective Data Objective Data Vital Signs: Vital Signs Temp Pulse Resp BP 99 F 76 20 H 139/82 H 10/25/22 11:15 10/25/22 11:15 10/25/22 11:15 10/25/22 11:15 Weight: 126 lb 12.519 oz Body Mass Index (BMI) 21.1 Charges/Coding Procedures Integumentary 111xxx-113xx: 62210 Global Visit Debridement Note Debridement Note Wound debrided: Axilla wound Laterality: Right Wound Grade/Stage: Stage IV Type of Debridement: Excisional debridement Anesthesia Used: 4% Lidocaine Solution and 5% Lidocaine Gel Depth: Down to and including healthy tissue, in the subcutaneous layer and to muscle Percentage of wound debrided: 100 Instrument Used: 7mm curette Tissue Removed: Devitalized tissue and slough Severity: Fat Layer Exposed Amount of bleeding with debridement: Mild Bleeding Controlled with: Pressure and Compression and gauze Patient tolerated procedure: Patient tolerated procedure well Post-Debridement Measurements and Additional Note: Post-Debridement Measurements/Treatment NASRA - Nurse 1 - General Ulcer Assessment Start: 10/25/22 11:12 Freq: Status: Active Protocol: JOSÉ Activity Type Activity Date Activity User E-sign Co-sign Detail Recorded Client Recorded Date Recorded By Document 10/25/22 11:15 DL [id number] 10/25/22 11:26 DL 10/25/22 11:15 WC - Today's Visit Information Type of service Follow-up Visit (Physician/SPECIALIST ICU ) Arrival Mode Ambulatory Transfer Assistance None Patient Identification Verified (Name & Yes ) Patient Requires Transmission-Based No Precautions Height and Weight Body Mass Index (BMI) 21.1 BMI Classification Normal Vital Signs Temperature (97.8 F-99.1 F) 99 F Temperature Source Temporal Pulse Rate (60-100) 76 Pulse Location Monitor Respiratory Rate (12-18) 20 H Respiratory rate source Observation Blood Pressure (90/60-120/80) 139/82 H Blood Pressure Mean (mm Hg) 101 Source Monitor History Since Last Visit- (Skip if this is Patient's initial visit) Have you changed medications since your No last visit? Any new allergies or adverse reactions No Had a fall/change in ADL's that may No increase risk of falls Signs or symptoms of abuse and/or No neglect since last visit Have you been in the hospital since your No last visit? Has dressing in place as prescribed Yes Has compression in place as prescribed N/A Has offloadiing in place as prescribed N/A Experienced any changes in pain level or No management Pain Scale: 0-10 Numeric Is Patient Pain Free? Yes NASRA Child[place] Nurse 1 - General Ulcer Measurement Start: 10/25/22 11:12 Freq: Status: Active Protocol: Activity Type Activity Date Activity User E-sign Co-sign Detail Recorded Client Recorded Date Recorded By Document 10/25/22 11:15 GORDY [id number] 10/25/22 11:26 DL 10/25/22 11:15 Wound Center Nurse 1 #1 R Axilla -Current Size (cm) - Length 4.5 -Current Size (cm) - Width 6.8 -Current Size (cm) - Depth 1.5 -Total Square Cm 30.60 -Photo Taken Yes -Exudate Amt Medium -Exudate Type Serosanguineous -Wound Margin Distinct, Outline Attached -Granulation Amt Large (67-100%) -Granulation Quality Red -Necrosis Amt Small (1-33%) -Necrotic Tissue Type Adherent Slough -Structure Exposed N/A -Texture (Mariaelena-wound Skin Appearance) No Abnormality -Moisture (Mariaelena-wound Skin Appearance) No Abnormality -Color (Mariaelena-wound Skin Appearance) No Abnormality -Temperature (Mariaelena-wound Skin No Abnormality Appearance) (Pt Warm) -Tenderness on Palpation (Mariaelena-wound Yes Skin Appearance) -Ulcer Cleansing Soap and Water -Foul Odor after Cleansing No -Anesthetic Used 4% Lidocaine Solution NASRA - Nurse 2 - General Ulcer CM Notes Start: 10/25/22 11:12 Freq: Status: Active Protocol: Activity Type Activity Date Activity User E-sign Co-sign Detail Recorded Client Recorded Date Recorded By Document 10/25/22 11:49 JAIME [id number] 10/25/22 11:57 JF 10/25/22 11:49 Wound Center Nurse 2 -Time 11:55 -Correct Patient Yes -Correct Side, Site, Position Yes -Correct Procedure Yes -Procedure Performed Yes -Type of Procedure Debridement -Clinical Debridement Muscle / Fascia -Tissue Removed Muscle,Fascia -Post Debridement (cm) - Length 7.5 -Post Debridement (cm) - Width 4.5 -Post Debridement (cm) - Depth 1.2 -Total Square (Post) (cm) 33.75 -Area of Debridement (cm) - Length 7.5 -Area of Debridement (cm) - Width 4.5 -Total Square (Area) (cm) 33.75 -Tunneling No -Undermining/Tunneling No -Circular Undermining No -Wound/Ulcer Outcome Not Healed -Ulcer Cleansing Rinsed/ Irrigated with Saline -Foul Odor after Cleansing No -Bioengineered Tissue No -Bleeding Controlled with Pressure -Treatment Response Procedure Tolerated Well -Offloading No -Debridement - Muscle / Fascia, 1st Yes 20sq cm -Debridement, Muscle/Fascia, ea addt'l 1 20sq cm or part thereof Pain Scale: 0-10 Numeric Is Patient Pain Free? Yes NASRA - Nurse 3 - General Ulcer D/C NN Start: 10/25/22 11:12 Freq: Status: Active Protocol: Activity Type Activity Date Activity User E-sign Co-sign Detail Recorded Client Recorded Date Recorded By Document 10/25/22 12:27 DL [id number] 10/25/22 12:28 DL 10/25/22 12:27 Wound Care Center Nurse 3 #1 R Axilla -Ulcer Cleansing Rinsed/ Irrigated with Saline -Foul Odor after Cleansing No -Primary Dressing Applied Hysept ($) -Primary Dressing Covered/Secured with Dry Gauze, Secured with Tape Treatment Response Procedure Tolerated Well Pain Scale: 0-10 Numeric Is Patient Pain Free? Yes WC - Visit Discharge Discharge Condition Stable Ambulatory Status Ambulatory Transportation Private Auto Facility Type Home Health Orders Sent Yes Assessment/Plan Assessment/Plan (1) Open wound of right axillary region: CODE(S): S41.101A - Unspecified open wound of right upper arm, initial encounter (2) Right axillary hidradenitis: CODE(S): L73.2 - Hidradenitis suppurativa (3) Other acute postprocedural pain: CODE(S): G89.18 - Other acute postprocedural pain PLAN: Plan Patient evaluated at the wound healing center today. Wound care - Will take a wound VAC holiday this week to see if this will help with her pain control. Her mother has been taught how to place Dakins 0.25% moistened gauze topped with ABD daily into the wound. Patient may shower before the dressing change and wash the wound with soap and water. Operative culture shows Had to change her medication to Linezolid. Encouraged range of motion of her right shoulder to help prevent her shoulder from getting stiff. She is having difficulty with full ROM of her right shoulder. Demonstrated how she should move her shoulder. Will order PT for evaluation, range of motion and strengthening. She has seen her deodorizer operator for her irritated eyes and was told she is having allergic reaction and eye drops were prescribed. She is extremely anxious. She is having a difficult time understanding instructions because she is so anxious. Discussed starting her on Lexapro at least for a short period of time to help her get through this situational stress. Had to hold the Lexapro until she completes the Linezolid because it is contraindicated taking both of these medications at the same time. She also should avoid process meats/foods such as salami, pepperoni, lunch meat, sauerkraut, pickles, etc. Her mother was present for this appointment. She has concerns about how sleepy the medications make her. Will have her take the Gabapentin only at bedtime because it makes her sleepy. Instructed mom how to do the dressing changes. Follow up one week. Call or come in sooner if have any concerns.
[2022-11-01 11:29] VITALS: BP 123/76; PULSE 72; RESP 20; TEMP 36.4; BMI 21.1
--- NOTE | 2022-11-01 12:42 | PCM.WC.PN ---
History of Present Illness Date of Service: 11/01/22 Chief Complaint: right axilla Hidradenitis excision History of Wound: 52 year old woman presents with increasing pain and redness and swelling right axilla that started a couple months ago. She has had I&D procedures by Dr. Arita. 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 She has a history of eczema and had been on Dupixent in the past. She thinks the eczema has worsened recently since the development of her right axillary hidradenitis. She saw a Post Office Manager for the eczema. Surgery 10/05/22 - Surgical preparation right axilla with excision hidradenitis (60 cm2). She was discharged on 10/06/22 with home health to assist with the wound VAC dressing changes 3 times per week. Preliminary operative cultures positive for Staphylococcus epidermidis. Waiting for sensitivities. She is currently on Doxycycline. At present, she denies fever, chills, nausea, vomiting. Progress of Wound: Right axilla incision is beefy pink and is smaller in size. No active bleeding. Mariaelena wound is no longer erythematous. She is moving her right shoulder better this week. She states she feels better without the wound VAC. She does not have as much pain. She is not tearful like she previously has been. She states that she completed her antibiotics last week and she would like to be able to start on the Lexapro to help with her anxiety but she lost the prescription that she picked up from the pharmacy before she had a change to take it because it interacted with the Linezolid. She states she is doing more for herself around her house. Her mother is having a difficult time assisting with the dressing changes. She does not want the wound VAC back on this week. Objective Data Objective Data Vital Signs: Vital Signs Temp Pulse Resp BP 97.5 F L 72 20 H 123/76 H 11/01/22 11:29 11/01/22 11:29 11/01/22 11:29 11/01/22 11:29 Weight: 126 lb 12.519 oz Body Mass Index (BMI) 21.1 Charges/Coding Procedures Integumentary 111xxx-113xx: [id number] Global Visit Debridement Note Debridement Note Wound debrided: Axilla wound Laterality: Right Wound Grade/Stage: Stage IV Type of Debridement: Excisional debridement Anesthesia Used: 4% Lidocaine Solution and 5% Lidocaine Gel Depth: Down to and including healthy tissue, in the subcutaneous layer and to muscle Percentage of wound debrided: 100 Instrument Used: 5mm curette Tissue Removed: Devitalized tissue and slough Severity: Fat Layer Exposed Amount of bleeding with debridement: Mild Bleeding Controlled with: Pressure and Compression and gauze Patient tolerated procedure: Patient tolerated procedure well Debridement Free Text: Patient doing much better this week with the debridement. Post-Debridement Measurements and Additional Note: Post-Debridement Measurements/Treatment - Nurse 1 - General Ulcer Assessment Start: 10/25/22 11:12 Freq: Status: Active Protocol: [email or web address] Activity Type Activity Date Activity User E-sign Co-sign Detail Recorded Client Recorded Date Recorded By Document 10/25/22 11:15 DL [id number] 10/25/22 11:26 DL Document 11/01/22 11:29 DL [id number] 11/01/22 11:36 DL 10/25/22 11/01/22 11:15 11:29 - Today's Visit Information Type of service Follow-up Visit Follow-up Visit (Physician/QUALITY COMPLIANCE COORDINATOR (Physician/QUALITY COMPLIANCE COORDINATOR ) ) Arrival Mode Ambulatory Ambulatory Transfer Assistance None None Patient Identification Verified (Name & Yes Yes ) Patient Requires Transmission-Based No No Precautions Height and Weight Body Mass Index (BMI) 21.1 21.1 BMI Classification Normal Normal Vital Signs Temperature (97.8 F-99.1 F) 99 F 97.5 F L Temperature Source Temporal Temporal Pulse Rate (60-100) 76 72 Pulse Location Monitor Monitor Respiratory Rate (12-18) 20 H 20 H Respiratory rate source Observation Observation Blood Pressure (90/60-120/80) 139/82 H 123/76 H Blood Pressure Mean (mm Hg) 101 91 Source Monitor Monitor History Since Last Visit- (Skip if this is Patient's initial visit) Have you changed medications since your No No last visit? Any new allergies or adverse reactions No No Had a fall/change in ADL's that may No No increase risk of falls Signs or symptoms of abuse and/or No No neglect since last visit Have you been in the hospital since your No No last visit? Has dressing in place as prescribed Yes Yes Has compression in place as prescribed N/A N/A Has offloadiing in place as prescribed N/A N/A Experienced any changes in pain level or No No management Pain Scale: 0-10 Numeric Is Patient Pain Free? Yes No R axilla -Description Sharp -Pain Behavior Guarding, Withdrawal from Touch -Alleviating Factors/Interventions Medication -Effectiveness of Alleviating Factor/ Moderately Intervention effective -Comments Painwith dressing removal WC - Nurse 1 - General Ulcer Measurement Start: 10/25/22 11:12 Freq: Status: Active Protocol: Activity Type Activity Date Activity User E-sign Co-sign Detail Recorded Client Recorded Date Recorded By Document 10/25/22 11:15 DL [id number] 10/25/22 11:26 DL Document 11/01/22 11:29 DL [id number] 11/01/22 11:36 DL 10/25/22 11/01/22 11:15 11:29 Wound Center Nurse 1 #1 R Axilla -Current Size (cm) - Length 4.5 4 -Current Size (cm) - Width 6.8 6.5 -Current Size (cm) - Depth 1.5 0.9 -Total Square Cm 30.60 26.0 -Photo Taken Yes Yes -Exudate Amt Medium Medium -Exudate Type Serosanguineous Serosanguineous -Wound Margin Distinct, Fibrotic Scar, Outline Thickened Scar Attached -Granulation Amt Large (67-100%) Large (67-100%) -Granulation Quality Red Red -Necrosis Amt Small (1-33%) Small (1-33%) -Necrotic Tissue Type Adherent Slough Adherent Slough -Structure Exposed N/A N/A -Texture (Mariaelena-wound Skin Appearance) No Abnormality Scarring -Moisture (Mariaelena-wound Skin Appearance) No Abnormality No Abnormality -Color (Mariaelena-wound Skin Appearance) No Abnormality No Abnormality -Temperature (Mariaelena-wound Skin No Abnormality No Abnormality Appearance) (Pt Warm) (Pt Warm) -Tenderness on Palpation (Mariaelena-wound Yes Yes Skin Appearance) -Ulcer Cleansing Soap and Water Soap and Water -Foul Odor after Cleansing No No -Anesthetic Used 4% Lidocaine 4% Lidocaine Solution Solution,5% Lidocaine Gel WC - Nurse 2 - General Ulcer CM Notes Start: 10/25/22 11:12 Freq: Status: Active Protocol: Activity Type Activity Date Activity User E-sign Co-sign Detail Recorded Client Recorded Date Recorded By Document 10/25/22 11:49 [id number] 10/25/22 11:57 Document 11/01/22 11:52 PL [id number] 11/01/22 12:09 PL 10/25/22 11/01/22 11:49 11:52 Wound Center Nurse 2 #1 R Axilla -Time 11:55 11:55 -Correct Patient Yes Yes -Correct Side, Site, Position Yes Yes -Correct Procedure Yes Yes -Procedure Performed Yes Yes -Type of Procedure Debridement Debridement -Clinical Debridement Muscle / Fascia Muscle / Fascia -Tissue Removed Muscle,Fascia Muscle -Post Debridement (cm) - Length 7.5 7.4 -Post Debridement (cm) - Width 4.5 3.8 -Post Debridement (cm) - Depth 1.2 0.7 -Total Square (Post) (cm) 33.75 28.12 -Area of Debridement (cm) - Length 7.5 7.4 -Area of Debridement (cm) - Width 4.5 3.8 -Total Square (Area) (cm) 33.75 28.12 -Tunneling No No -Undermining/Tunneling No No -Circular Undermining No No -Wound/Ulcer Outcome Not Healed Not Healed -Ulcer Cleansing Rinsed/ Rinsed/ Irrigated with Irrigated with Saline Saline -Foul Odor after Cleansing No No -Bioengineered Tissue No No -Bleeding Controlled with Pressure Pressure -Treatment Response Procedure Procedure Tolerated Well Tolerated Well -Offloading No -Debridement - Muscle / Fascia, 1st Yes Yes 20sq cm -Debridement, Muscle/Fascia, ea addt'l 1 1 20sq cm or part thereof Pain Scale: 0-10 Numeric Is Patient Pain Free? Yes Yes WC - Nurse 3 - General Ulcer D/C NN Start: 10/25/22 11:12 Freq: Status: Active Protocol: Activity Type Activity Date Activity User E-sign Co-sign Detail Recorded Client Recorded Date Recorded By Document 10/25/22 12:27 DL [id number] 10/25/22 12:28 DL 10/25/22 12:27 Wound Care Center Nurse 3 #1 R Axilla -Ulcer Cleansing Rinsed/ Irrigated with Saline -Foul Odor after Cleansing No -Primary Dressing Applied Hysept ($) -Primary Dressing Covered/Secured with Dry Gauze, Secured with Tape Treatment Response Procedure Tolerated Well Pain Scale: 0-10 Numeric Is Patient Pain Free? Yes WC - Visit Discharge Discharge Condition Stable Ambulatory Status Ambulatory Transportation Private Auto Facility Type Home Health Orders Sent Yes Assessment/Plan Assessment/Plan (1) Open wound of right axillary region: CODE(S): S41.101A - Unspecified open wound of right upper arm, initial encounter (2) Right axillary hidradenitis: CODE(S): L73.2 - Hidradenitis suppurativa (3) Other acute postprocedural pain: CODE(S): G89.18 - Other acute postprocedural pain PLAN: Plan Patient evaluated at the wound healing center today. Wound care - Will take a wound VAC holiday again this week since it has really helped with her pain control. She does not have help daily with her dressing changes and she does not feel able to to the dressing change herself. Will place Aquacel-Ag every other day covered by ABD. Ideally having her dressing changed daily would be more beneficial. Hopefully, eventually she will be able to change the dressing herself. She is wearing a single layer tubigrip on her right arm for compression. Patient may shower before the dressing change and wash the wound with soap and water. Operative culture shows LONG. She completed the Linezolid. Encouraged range of motion of her right shoulder to help prevent her shoulder from getting stiff. She is having difficulty with full ROM of her right shoulder. Demonstrated how she should move her shoulder. Will order PT for evaluation, range of motion and strengthening. She has seen her financial recording clerk for her irritated eyes and was told she is having allergic reaction and eye drops were prescribed. She is less anxious this week. She has completed the Linezolid. She lost the prescription for the Lexapro that was prescribed before she had to take the Linezolid, so will prescribe Lexapro 10 mg daily. Discussed starting her on Lexapro at least for a short period of time to help her get through this situational stress. Follow up one week. Call or come in sooner if have any concerns.
[2022-11-08 11:48] VITALS: BP 139/69; PULSE 76; TEMP 35.8; BMI 21.1
--- NOTE | 2022-11-08 12:02 | PN.PCM_ITS ---
History of Present Illness Date of Service: 11/08/22 Chief Complaint: right axilla Hidradenitis excision History of Wound: 52 year old woman presents with increasing pain and redness and swelling right axilla that started a couple months ago. She has had I&D procedures by Dr. Arita. She works in Housekeeping at [employer] and states she may be allergic to the chemicals used for cleaning. She has a history of eczema and had been on Dupixent in the past. She thinks the eczema has worsened recently since the development of her right axillary hidradenitis. She saw a Reed Man for the eczema. Surgery 10/05/22 - Surgical preparation right axilla with excision hidradenitis (60 cm2). She was discharged on 10/06/22 with home health to assist with the wound VAC dressing changes 3 times per week. Preliminary operative cultures positive for Staphylococcus epidermidis. Waiting for sensitivities. She is currently on Doxycycline. At present, she denies fever, chills, nausea, vomiting. Progress of Wound: Right axilla incision is beefy pink and is smaller in size. No active bleeding. Mariaelena wound is no longer erythematous. She is moving her right shoulder better this week. She states she feels better without the wound VAC and her pain has decreased. She has started taking the Lexapro and she states she is feeling less anxious. Objective Data Objective Data Vital Signs: Vital Signs Temp Pulse Resp BP 96.4 F L 76 20 H 139/69 H 11/08/22 11:48 11/08/22 11:48 11/01/22 11:29 11/08/22 11:48 Weight: 126 lb 12.519 oz Body Mass Index (BMI) 21.1 Charges/Coding Procedures Integumentary 111xxx-113xx: [id number] Global Visit Debridement Note Debridement Note Wound debrided: Axilla wound Laterality: Right Wound Grade/Stage: Stage IV Type of Debridement: Excisional debridement Anesthesia Used: 4% Lidocaine Solution and 5% Lidocaine Gel Depth: Down to and including healthy tissue and in the subcutaneous layer Percentage of wound debrided: 100 Instrument Used: 5mm curette Tissue Removed: Devitalized tissue and slough Severity: Fat Layer Exposed Amount of bleeding with debridement: Mild Bleeding Controlled with: Pressure and Compression and gauze Patient tolerated procedure: Patient tolerated procedure well Debridement Free Text: Patient doing much better this week with the debridement. Post-Debridement Measurements and Additional Note: Post-Debridement Measurements/Treatment WC - Nurse 1 - General Ulcer Assessment Start: 10/25/22 11:12 Freq: Status: Active Protocol: JOSÉ Activity Type Activity Date Activity User E-sign Co-sign Detail Recorded Client Recorded Date Recorded By Document 10/25/22 11:15 DL [id number] 10/25/22 11:26 DL Document 11/01/22 11:29 DL [id number] 11/01/22 11:36 DL Document 11/08/22 11:48 AK [id number] 11/08/22 11:49 AK 10/25/22 11/01/22 11/08/22 11:15 11:29 11:48 WC - Today's Visit Information Type of service Follow-up Visit Follow-up Visit Follow-up Visit (Physician/ELECTRICAL SYSTEMS DESIGN ENGINEER (Physician/ELECTRICAL SYSTEMS DESIGN ENGINEER (Physician/ELECTRICAL SYSTEMS DESIGN ENGINEER ) ) ) Arrival Mode Ambulatory Ambulatory Ambulatory Transfer Assistance None None Patient Identification Verified (Name & Yes Yes Yes ) Patient Requires Transmission-Based No No No Precautions Safety Precautions NA Height and Weight Body Mass Index (BMI) 21.1 21.1 21.1 BMI Classification Normal Normal Normal Vital Signs Temperature (97.8 F-99.1 F) 99 F 97.5 F L 96.4 F L Temperature Source Temporal Temporal Temporal Pulse Rate (60-100) 76 72 76 Pulse Location Monitor Monitor Monitor Respiratory Rate (12-18) 20 H 20 H Respiratory rate source Observation Observation Blood Pressure (90/60-120/80) 139/82 H 123/76 H 139/69 H Blood Pressure Mean (mm Hg) 101 91 92 Source Monitor Monitor Monitor History Since Last Visit- (Skip if this is Patient's initial visit) Have you changed medications since your No No No last visit? Any new allergies or adverse reactions No No No Had a fall/change in ADL's that may No No No increase risk of falls Signs or symptoms of abuse and/or No No No neglect since last visit Have you been in the hospital since your No No last visit? Has dressing in place as prescribed Yes Yes Yes Has compression in place as prescribed N/A N/A N/A Has offloadiing in place as prescribed N/A N/A N/A Experienced any changes in pain level or No No No management Left Footwear Regular Shoe Right Footwear Regular Shoe Pain Scale: 0-10 Numeric Is Patient Pain Free? Yes No No R axilla -Description Sharp -Pain Behavior Guarding, Withdrawal from Touch -Alleviating Factors/Interventions Medication -Effectiveness of Alleviating Factor/ Moderately Intervention effective -Comments Painwith dressing removal WC - Nurse 1 - General Ulcer Measurement Start: 10/25/22 11:12 Freq: Status: Active Protocol: Activity Type Activity Date Activity User E-sign Co-sign Detail Recorded Client Recorded Date Recorded By Document 10/25/22 11:15 DL [id number] 10/25/22 11:26 DL Document 11/01/22 11:29 DL [id number] 11/01/22 11:36 DL Document 11/08/22 11:48 AK [id number] 11/08/22 11:49 AK 10/25/22 11/01/22 11/08/22 11:15 11:29 11:48 Wound Center Nurse 1 #1 R Axilla -Combined with other wound No -Current Size (cm) - Length 4.5 4 5 -Current Size (cm) - Width 6.8 6.5 2.4 -Current Size (cm) - Depth 1.5 0.9 0.1 -Total Square Cm 30.60 26.0 12.0 -Photo Taken Yes Yes No -Tunneling No -Undermining/Tunneling No -Circular Undermining No -Exudate Amt Medium Medium -Exudate Type Serosanguineous Serosanguineous -Wound Margin Distinct, Fibrotic Scar, Outline Thickened Scar Attached -Granulation Amt Large (67-100%) Large (67-100%) -Granulation Quality Red Red -Necrosis Amt Small (1-33%) Small (1-33%) -Necrotic Tissue Type Adherent Slough Adherent Slough -Structure Exposed N/A N/A -Texture (Mariaelena-wound Skin Appearance) No Abnormality Scarring -Moisture (Mariaelena-wound Skin Appearance) No Abnormality No Abnormality -Color (Mariaelena-wound Skin Appearance) No Abnormality No Abnormality -Temperature (Mariaelena-wound Skin No Abnormality No Abnormality No Abnormality Appearance) (Pt Warm) (Pt Warm) (Pt Warm) -Tenderness on Palpation (Mariaelena-wound Yes Yes Yes Skin Appearance) -Ulcer Cleansing Soap and Water Soap and Water Soap and Water -Foul Odor after Cleansing No No No -Anesthetic Used 4% Lidocaine 4% Lidocaine 4% Lidocaine Solution Solution,5% Solution,5% Lidocaine Gel Lidocaine Gel Lower Limb Edema Present No WC - Nurse 2 - General Ulcer CM Notes Start: 10/25/22 11:12 Freq: Status: Active Protocol: Activity Type Activity Date Activity User E-sign Co-sign Detail Recorded Client Recorded Date Recorded By Document 10/25/22 11:49 [id number] 10/25/22 11:57 JF Document 11/01/22 11:52 PL [id number] 11/01/22 12:09 PL Document 11/08/22 11:31 [id number] 11/08/22 11:32 JF 10/25/22 11/01/22 11/08/22 11:49 11:52 11:31 Wound Center Nurse 2 #1 R Axilla -Time 11:55 11:55 11:31 -Correct Patient Yes Yes Yes -Correct Side, Site, Position Yes Yes Yes -Correct Procedure Yes Yes Yes -Procedure Performed Yes Yes Yes -Type of Procedure Debridement Debridement Debridement -Clinical Debridement Muscle / Fascia Muscle / Fascia Subcutaneous -Tissue Removed Muscle,Fascia Muscle Subcutaneous -Post Debridement (cm) - Length 7.5 7.4 5.0 -Post Debridement (cm) - Width 4.5 3.8 3.4 -Post Debridement (cm) - Depth 1.2 0.7 0.4 -Total Square (Post) (cm) 33.75 28.12 17.00 -Area of Debridement (cm) - Length 7.5 7.4 5.0 -Area of Debridement (cm) - Width 4.5 3.8 3.4 -Total Square (Area) (cm) 33.75 28.12 17.00 -Tunneling No No No -Undermining/Tunneling No No No -Circular Undermining No No No -Wound/Ulcer Outcome Not Healed Not Healed Not Healed -Ulcer Cleansing Rinsed/ Rinsed/ Rinsed/ Irrigated with Irrigated with Irrigated with Saline Saline Saline -Foul Odor after Cleansing No No No -Bioengineered Tissue No No No -Bleeding Controlled with Pressure Pressure Pressure -Treatment Response Procedure Procedure Procedure Tolerated Well Tolerated Well Tolerated Well -Offloading No No -Debridement - Subq, 1st 20sq cm Yes -Debridement - Muscle / Fascia, 1st Yes Yes 20sq cm -Debridement, Muscle/Fascia, ea addt'l 1 1 20sq cm or part thereof Pain Scale: 0-10 Numeric Is Patient Pain Free? Yes Yes Yes - Nurse 3 - General Ulcer D/C NN Start: 10/25/22 11:12 Freq: Status: Active Protocol: Activity Type Activity Date Activity User E-sign Co-sign Detail Recorded Client Recorded Date Recorded By Document 10/25/22 12:27 DL [id number] 10/25/22 12:28 DL Document 11/08/22 11:49 AK [id number] 11/08/22 11:50 AK 10/25/22 11/08/22 12:27 11:49 Wound Care Center Nurse 3 #1 R Axilla -Ulcer Cleansing Rinsed/ Rinsed/ Irrigated with Irrigated with Saline Saline -Foul Odor after Cleansing No No -Negative Pressure Wound Therapy N/A -Primary Dressing Applied Hysept ($) Aquacel AG 4x4 -Other Dressing ABD -Primary Dressing Covered/Secured with Dry Gauze, Secured with Tape -Aquacel AG 4x4 1 Treatment Response Procedure Tolerated Well Pain Scale: 0-10 Numeric Is Patient Pain Free? Yes No WC - Visit Discharge Discharge Condition Stable Stable Ambulatory Status Ambulatory Ambulatory Transportation Private Auto Private Auto Medication Reconcilliation completed & Yes provided to patient/care provider Clinical Summary of Care Provided Yes Facility Type Home Health Orders Sent Yes Assessment/Plan Assessment/Plan (1) Open wound of right axillary region: CODE(S): S41.101A - Unspecified open wound of right upper arm, initial encounter (2) Right axillary hidradenitis: CODE(S): L73.2 - Hidradenitis suppurativa (3) Other acute postprocedural pain: CODE(S): G89.18 - Other acute postprocedural pain PLAN: Plan Patient evaluated at the wound healing center today. Wound care - Will discontinue wound VAC. She does not have help daily with her dressing changes and she does not feel able to to the dressing change herself. Will place slightly moistened Aquacel-Ag every other day covered by ABD. Ideally having her dressing changed daily would be more beneficial. Hopefully, eventually she will be able to change the dressing herself. She is wearing a single layer tubigrip on her right arm for compression. Patient may shower before the dressing change and wash the wound with soap and water. Operative culture shows LONG. She completed the Linezolid. Encouraged range of motion of her right shoulder to help prevent her shoulder from getting stiff. She is having difficulty with full ROM of her right shoulder. Demonstrated how she should move her shoulder. PT ordered for evaluation, range of motion and strengthening. She is less anxious this week. She is tolerating the Lexapro well and states that it is helping with her anxiety. Follow up one week. Call or come in sooner if have any concerns.
[2022-11-15 11:14] VITALS: BP 117/65; PULSE 44; TEMP 36.2; BMI 21.1
--- NOTE | 2022-11-15 11:39 | PCM.WC.PN ---
History of Present Illness Date of Service: 11/15/22 Chief Complaint: right axilla Hidradenitis excision History of Wound: 52 year old woman presents with increasing pain and redness and swelling right axilla that started a couple months ago. She has had I&D procedures by Dr. Arita. She works in Housekeeping at [employer] and states she may be allergic to the chemicals used for cleaning. She has a history of eczema and had been on Dupixent in the past. She thinks the eczema has worsened recently since the development of her right axillary hidradenitis. She saw a Technology Auditor for the eczema. Surgery 10/05/22 - Surgical preparation right axilla with excision hidradenitis (60 cm2). She was discharged on 10/06/22 with home health to assist with the wound VAC dressing changes 3 times per week. Preliminary operative cultures positive for Staphylococcus epidermidis. Waiting for sensitivities. She is currently on Doxycycline. Wound care is Aquacel-Ag slightly moistened covered with ABD. At present, she denies fever, chills, nausea, vomiting. Progress of Wound: Right axilla incision is much smaller in size. It is beefy pink with hypergranulation tissue present. Mariaelena wound is clear. She is very tearful today because she is concerned she has an odor from the wound and is afraid it is infected. No odor is present at this time. She is not moving her right should as she should. She states she is having pain in her shoulder and anteriorly and posteriorly. She has decreased ROM. She states she has not started PT yet, which was ordered weeks ago. Objective Data Objective Data Vital Signs: Vital Signs Temp Pulse Resp BP 97.1 F L 44 L 20 H 117/65 11/15/22 11:14 11/15/22 11:14 11/01/22 11:29 11/15/22 11:14 Weight: 126 lb 12.519 oz Body Mass Index (BMI) 21.1 Charges/Coding Procedures Integumentary [id number]: [id number] Global Visit Debridement Note Debridement Note Wound debrided: Axilla wound Laterality: Right Wound Grade/Stage: Stage IV Type of Debridement: Excisional debridement Anesthesia Used: 4% Lidocaine Solution and 5% Lidocaine Gel Depth: Down to and including healthy tissue and in the subcutaneous layer Percentage of wound debrided: 100 Instrument Used: 5mm curette Tissue Removed: Devitalized tissue and slough, hypergranulation tisssue present. Severity: Fat Layer Exposed Amount of bleeding with debridement: Mild Bleeding Controlled with: Pressure, Compression and gauze and Silver Nitrate Patient tolerated procedure: Patient tolerated procedure well Debridement Free Text: Patient doing much better this week with the debridement. Silver nitrate used due to the hypergranulation tissue present. Post-Debridement Measurements and Additional Note: Post-Debridement Measurements/Treatment - Nurse 1 - General Ulcer Assessment Start: 10/25/22 11:12 Freq: Status: Active Protocol: [employer] Activity Type Activity Date Activity User E-sign Co-sign Detail Recorded Client Recorded Date Recorded By Document 10/25/22 11:15 DL [id number] 10/25/22 11:26 DL Document 11/01/22 11:29 DL [id number] 11/01/22 11:36 DL Document 11/08/22 11:48 AK [id number] 11/08/22 11:49 AK Document 11/15/22 11:14 AK [id number] 11/15/22 11:17 AK 10/25/22 11/01/22 11/08/22 11:15 11:29 11:48 - Today's Visit Information Type of service Follow-up Visit Follow-up Visit Follow-up Visit (Physician/INDUSTRIAL FURNACE FABRICATOR (Physician/INDUSTRIAL FURNACE FABRICATOR (Physician/INDUSTRIAL FURNACE FABRICATOR ) ) ) Arrival Mode Ambulatory Ambulatory Ambulatory Transfer Assistance None None Patient Identification Verified (Name & Yes Yes Yes ) Patient Requires Transmission-Based No No No Precautions Safety Precautions NA Height and Weight Body Mass Index (BMI) 21.1 21.1 21.1 BMI Classification Normal Normal Normal Vital Signs Temperature (97.8 F-99.1 F) 99 F 97.5 F L 96.4 F L Temperature Source Temporal Temporal Temporal Pulse Rate (60-100) 76 72 76 Pulse Location Monitor Monitor Monitor Respiratory Rate (12-18) 20 H 20 H Respiratory rate source Observation Observation Blood Pressure (90/60-120/80) 139/82 H 123/76 H 139/69 H Blood Pressure Mean (mm Hg) 101 91 92 Source Monitor Monitor Monitor History Since Last Visit- (Skip if this is Patient's initial visit) Have you changed medications since your No No No last visit? Any new allergies or adverse reactions No No No Had a fall/change in ADL's that may No No No increase risk of falls Signs or symptoms of abuse and/or No No No neglect since last visit Have you been in the hospital since your No No last visit? Has dressing in place as prescribed Yes Yes Yes Has compression in place as prescribed N/A N/A N/A Has offloadiing in place as prescribed N/A N/A N/A Experienced any changes in pain level or No No No management Left Footwear Regular Shoe Right Footwear Regular Shoe Pain Scale: 0-10 Numeric Is Patient Pain Free? Yes No No R axilla -Description Sharp -Pain Behavior Guarding, Withdrawal from Touch -Alleviating Factors/Interventions Medication -Effectiveness of Alleviating Factor/ Moderately Intervention effective -Comments Painwith dressing removal 11/15/22 11:14 WC - Today's Visit Information Type of service Follow-up Visit (Physician/INDUSTRIAL FURNACE FABRICATOR ) Arrival Mode Ambulatory Transfer Assistance Patient Identification Verified (Name & Yes ) Patient Requires Transmission-Based No Precautions Safety Precautions NA Height and Weight Body Mass Index (BMI) 21.1 BMI Classification Normal Vital Signs Temperature (97.8 F-99.1 F) 97.1 F L Temperature Source Temporal Pulse Rate (60-100) 44 L Pulse Location Monitor Respiratory Rate (12-18) Respiratory rate source Blood Pressure (90/60-120/80) 117/65 Blood Pressure Mean (mm Hg) 82 Source Monitor History Since Last Visit- (Skip if this is Patient's initial visit) Have you changed medications since your No last visit? Any new allergies or adverse reactions No Had a fall/change in ADL's that may No increase risk of falls Signs or symptoms of abuse and/or No neglect since last visit Have you been in the hospital since your No last visit? Has dressing in place as prescribed Yes Has compression in place as prescribed N/A Has offloadiing in place as prescribed N/A Experienced any changes in pain level or No management Left Footwear Regular Shoe Right Footwear Regular Shoe Pain Scale: 0-10 Numeric Is Patient Pain Free? No R axilla -Description -Pain Behavior -Alleviating Factors/Interventions -Effectiveness of Alleviating Factor/ Intervention -Comments - Nurse 1 - General Ulcer Measurement Start: 10/25/22 11:12 Freq: Status: Active Protocol: Activity Type Activity Date Activity User E-sign Co-sign Detail Recorded Client Recorded Date Recorded By Document 10/25/22 11:15 DL [id number] 10/25/22 11:26 DL Document 11/01/22 11:29 DL [id number] 11/01/22 11:36 DL Document 11/08/22 11:48 AK [id number] 11/08/22 11:49 AK Document 11/15/22 11:14 AK [id number] 11/15/22 11:17 AK 10/25/22 11/01/22 11/08/22 11:15 11:29 11:48 Wound Center Nurse 1 #1 R Axilla -Combined with other wound No -Current Size (cm) - Length 4.5 4 5 -Current Size (cm) - Width 6.8 6.5 2.4 -Current Size (cm) - Depth 1.5 0.9 0.1 -Total Square Cm 30.60 26.0 12.0 -Date of Last Picture (Recall this field) -Photo Taken Yes Yes No -Tunneling No -Undermining/Tunneling No -Circular Undermining No -Change in Wound Grade/Stage -Exudate Amt Medium Medium -Exudate Type Serosanguineous Serosanguineous -Wound Margin Distinct, Fibrotic Scar, Outline Thickened Scar Attached -Granulation Amt Large (67-100%) Large (67-100%) -Granulation Quality Red Red -Slough/Fibrin -Necrosis Amt Small (1-33%) Small (1-33%) -Necrotic Tissue Type Adherent Slough Adherent Slough -Structure Exposed N/A N/A -Texture (Mariaelena-wound Skin Appearance) No Abnormality Scarring -Moisture (Mariaelena-wound Skin Appearance) No Abnormality No Abnormality -Color (Mariaelena-wound Skin Appearance) No Abnormality No Abnormality -Temperature (Mariaelena-wound Skin No Abnormality No Abnormality No Abnormality Appearance) (Pt Warm) (Pt Warm) (Pt Warm) -Tenderness on Palpation (Mariaelena-wound Yes Yes Yes Skin Appearance) -Ulcer Cleansing Soap and Water Soap and Water Soap and Water -Foul Odor after Cleansing No No No -Anesthetic Used 4% Lidocaine 4% Lidocaine 4% Lidocaine Solution Solution,5% Solution,5% Lidocaine Gel Lidocaine Gel Lower Limb Edema Present No 11/15/22 11:14 Wound Center Nurse 1 #1 R Axilla -Combined with other wound No -Current Size (cm) - Length 2.5 -Current Size (cm) - Width 4.5 -Current Size (cm) - Depth 0.1 -Total Square Cm 05.19 -Date of Last Picture (Recall this 11/15/22 field) -Photo Taken Yes -Tunneling No -Undermining/Tunneling No -Circular Undermining No -Change in Wound Grade/Stage No -Exudate Amt Large -Exudate Type Serosanguineous -Wound Margin Distinct, Outline Attached -Granulation Amt Large (67-100%) -Granulation Quality Red -Slough/Fibrin Yes -Necrosis Amt Small (1-33%) -Necrotic Tissue Type Adherent Slough -Structure Exposed N/A -Texture (Mariaelena-wound Skin Appearance) Assessed, Scarring -Moisture (Mariaelena-wound Skin Appearance) No Abnormality, Assessed -Color (Mariaelena-wound Skin Appearance) No Abnormality, Assessed -Temperature (Mariaelena-wound Skin No Abnormality Appearance) (Pt Warm) -Tenderness on Palpation (Mariaelena-wound No Skin Appearance) -Ulcer Cleansing Soap and Water -Foul Odor after Cleansing No -Anesthetic Used 4% Lidocaine Solution Lower Limb Edema Present No WC - Nurse 2 - General Ulcer CM Notes Start: 10/25/22 11:12 Freq: Status: Active Protocol: Activity Type Activity Date Activity User E-sign Co-sign Detail Recorded Client Recorded Date Recorded By Document 10/25/22 11:49 [id number] 10/25/22 11:57 Document 11/01/22 11:52 PL [id number] 11/01/22 12:09 PL Document 11/08/22 11:31 [id number] 11/08/22 11:32 Document 11/15/22 11:27 [id number] 11/15/22 11:33 10/25/22 11/01/22 11/08/22 11:49 11:52 11:31 Wound Center Nurse 2 #1 R Axilla -Time 11:55 11:55 11:31 -Correct Patient Yes Yes Yes -Correct Side, Site, Position Yes Yes Yes -Correct Procedure Yes Yes Yes -Procedure Performed Yes Yes Yes -Type of Procedure Debridement Debridement Debridement -Clinical Debridement Muscle / Fascia Muscle / Fascia Subcutaneous -Tissue Removed Muscle,Fascia Muscle Subcutaneous -Post Debridement (cm) - Length 7.5 7.4 5.0 -Post Debridement (cm) - Width 4.5 3.8 3.4 -Post Debridement (cm) - Depth 1.2 0.7 0.4 -Total Square (Post) (cm) 33.75 28.12 17.00 -Area of Debridement (cm) - Length 7.5 7.4 5.0 -Area of Debridement (cm) - Width 4.5 3.8 3.4 -Total Square (Area) (cm) 33.75 28.12 17.00 -Tunneling No No No -Undermining/Tunneling No No No -Circular Undermining No No No -Wound/Ulcer Outcome Not Healed Not Healed Not Healed -Ulcer Cleansing Rinsed/ Rinsed/ Rinsed/ Irrigated with Irrigated with Irrigated with Saline Saline Saline -Foul Odor after Cleansing No No No -Bioengineered Tissue No No No -Bleeding Controlled with Pressure Pressure Pressure -Treatment Response Procedure Procedure Procedure Tolerated Well Tolerated Well Tolerated Well -Offloading No No -Debridement - Subq, 1st 20sq cm Yes -Debridement - Muscle / Fascia, 1st Yes Yes 20sq cm -Debridement, Muscle/Fascia, ea addt'l 1 1 20sq cm or part thereof Pain Scale: 0-10 Numeric Is Patient Pain Free? Yes Yes Yes 11/15/22 11:27 Wound Center Nurse 2 #1 R Axilla -Time 11:32 -Correct Patient Yes -Correct Side, Site, Position Yes -Correct Procedure Yes -Procedure Performed Yes -Type of Procedure Debridement -Clinical Debridement Subcutaneous -Tissue Removed Subcutaneous -Post Debridement (cm) - Length 4.5 -Post Debridement (cm) - Width 2.7 -Post Debridement (cm) - Depth 0.1 -Total Square (Post) (cm) 12.15 -Area of Debridement (cm) - Length 4.5 -Area of Debridement (cm) - Width 2.7 -Total Square (Area) (cm) 12.15 -Tunneling No -Undermining/Tunneling No -Circular Undermining No -Wound/Ulcer Outcome Not Healed -Ulcer Cleansing Rinsed/ Irrigated with Saline -Foul Odor after Cleansing No -Bioengineered Tissue No -Bleeding Controlled with Pressure -Treatment Response Procedure Tolerated Well -Offloading No -Debridement - Subq, 1st 20sq cm Yes -Debridement - Muscle / Fascia, 1st 20sq cm -Debridement, Muscle/Fascia, ea addt'l 20sq cm or part thereof Pain Scale: 0-10 Numeric Is Patient Pain Free? Yes WC - Nurse 3 - General Ulcer D/C NN Start: 10/25/22 11:12 Freq: Status: Active Protocol: Activity Type Activity Date Activity User E-sign Co-sign Detail Recorded Client Recorded Date Recorded By Document 10/25/22 12:27 DL [id number] 10/25/22 12:28 DL Document 11/08/22 11:49 AK [id number] 11/08/22 11:50 AK 10/25/22 11/08/22 12:27 11:49 Wound Care Center Nurse 3 #1 R Axilla -Ulcer Cleansing Rinsed/ Rinsed/ Irrigated with Irrigated with Saline Saline -Foul Odor after Cleansing No No -Negative Pressure Wound Therapy N/A -Primary Dressing Applied Hysept ($) Aquacel AG 4x4 -Other Dressing ABD -Primary Dressing Covered/Secured with Dry Gauze, Secured with Tape -Aquacel AG 4x4 1 Treatment Response Procedure Tolerated Well Pain Scale: 0-10 Numeric Is Patient Pain Free? Yes No WC - Visit Discharge Discharge Condition Stable Stable Ambulatory Status Ambulatory Ambulatory Transportation Private Auto Private Auto Medication Reconcilliation completed & Yes provided to patient/care provider Clinical Summary of Care Provided Yes Facility Type Home Health Orders Sent Yes Assessment/Plan Assessment/Plan (1) Open wound of right axillary region: CODE(S): S41.101A - Unspecified open wound of right upper arm, initial encounter (2) Right axillary hidradenitis: CODE(S): L73.2 - Hidradenitis suppurativa (3) Other acute postprocedural pain: CODE(S): G89.18 - Other acute postprocedural pain PLAN: Plan Patient evaluated at the wound healing center today. Wound care - Will discontinue wound VAC. She does not have help daily with her dressing changes and she does not feel able to to the dressing change herself. Will place slightly moistened Aquacel-Ag every other day covered by ABD. Ideally having her dressing changed daily would be more beneficial. Hopefully, eventually she will be able to change the dressing herself. She is wearing a single layer tubigrip on her right arm for compression. Patient may shower before the dressing change and wash the wound with soap and water. Operative culture shows LONG. She completed the Linezolid. Encouraged range of motion of her right shoulder to help prevent her shoulder from getting stiff. She is having difficulty with full ROM of her right shoulder. Demonstrated how she should move her shoulder. PT ordered for evaluation, range of motion and strengthening. She states that it has not been started, will resent the order to home health. She is less anxious this week. She is tolerating the Lexapro well and states that it is helping with her anxiety. Follow up one week. Call or come in sooner if have any concerns.
[2022-11-22 12:41] VITALS: BP 135/75; PULSE 78; TEMP 36.8; BMI 21.1
--- NOTE | 2022-11-22 12:42 | PCM.WC.PN ---
History of Present Illness Date of Service: 11/22/22 Chief Complaint: right axilla Hidradenitis excision History of Wound: 52 year old woman presents with increasing pain and redness and swelling right axilla that started a couple months ago. She has had I&D procedures by Dr. Arita. 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 She has a history of eczema and had been on Dupixent in the past. She thinks the eczema has worsened recently since the development of her right axillary hidradenitis. She saw a Cutter Finisher for the eczema. Surgery 10/05/22 - Surgical preparation right axilla with excision hidradenitis (60 cm2). She was discharged on 10/06/22 with home health to assist with the wound VAC dressing changes 3 times per week. Preliminary operative cultures positive for Staphylococcus epidermidis. Waiting for sensitivities. She is currently on Doxycycline. Wound care is Aquacel-Ag slightly moistened covered with ABD. At present, she denies fever, chills, nausea, vomiting. Progress of Wound: Right axilla incision is much smaller in size. It is beefy pink with hypergranulation tissue present. Mariaelena wound is clear. She has started PT for ROM and strengthening of her right shoulder. Objective Data Objective Data Vital Signs: Vital Signs Temp Pulse Resp BP 97.1 F L 44 L 20 H 117/65 11/15/22 11:14 11/15/22 11:14 11/01/22 11:29 11/15/22 11:14 Weight: 126 lb 12.519 oz Body Mass Index (BMI) 21.1 Charges/Coding Procedures Integumentary 111xxx-113xx: 29650 Global Visit Debridement Note Debridement Note Wound debrided: Axilla wound Laterality: Right Wound Grade/Stage: Stage IV Type of Debridement: Excisional debridement Anesthesia Used: 4% Lidocaine Solution and 5% Lidocaine Gel Depth: Down to and including healthy tissue and in the subcutaneous layer Percentage of wound debrided: 100 Instrument Used: 5mm curette Tissue Removed: Devitalized tissue and slough, hypergranulation tisssue present. Severity: Fat Layer Exposed Amount of bleeding with debridement: Mild Bleeding Controlled with: Pressure, Compression and gauze and Silver Nitrate Patient tolerated procedure: Patient tolerated procedure well Debridement Free Text: Patient doing much better this week with the debridement. Silver nitrate used due to the hypergranulation tissue present. Post-Debridement Measurements and Additional Note: Post-Debridement Measurements/Treatment WC - Nurse 1 - General Ulcer Assessment Start: 10/25/22 11:12 Freq: Status: Active Protocol: JOSÉ Activity Type Activity Date Activity User E-sign Co-sign Detail Recorded Client Recorded Date Recorded By Document 10/25/22 11:15 DL [id number] 10/25/22 11:26 DL Document 11/01/22 11:29 DL [id number] 11/01/22 11:36 DL Document 11/08/22 11:48 AK [id number] 11/08/22 11:49 AK Document 11/15/22 11:14 AK [id number] 11/15/22 11:17 AK 10/25/22 11/01/22 11/08/22 11:15 11:29 11:48 WC - Today's Visit Information Type of service Follow-up Visit Follow-up Visit Follow-up Visit (Physician/ANIMAL CARE SUPERVISOR (Physician/ANIMAL CARE SUPERVISOR (Physician/ANIMAL CARE SUPERVISOR ) ) ) Arrival Mode Ambulatory Ambulatory Ambulatory Transfer Assistance None None Patient Identification Verified (Name & Yes Yes Yes ) Patient Requires Transmission-Based No No No Precautions Safety Precautions NA Height and Weight Body Mass Index (BMI) 21.1 21.1 21.1 BMI Classification Normal Normal Normal Vital Signs Temperature (97.8 F-99.1 F) 99 F 97.5 F L 96.4 F L Temperature Source Temporal Temporal Temporal Pulse Rate (60-100) 76 72 76 Pulse Location Monitor Monitor Monitor Respiratory Rate (12-18) 20 H 20 H Respiratory rate source Observation Observation Blood Pressure (90/60-120/80) 139/82 H 123/76 H 139/69 H Blood Pressure Mean (mm Hg) 101 91 92 Source Monitor Monitor Monitor History Since Last Visit- (Skip if this is Patient's initial visit) Have you changed medications since your No No No last visit? Any new allergies or adverse reactions No No No Had a fall/change in ADL's that may No No No increase risk of falls Signs or symptoms of abuse and/or No No No neglect since last visit Have you been in the hospital since your No No last visit? Has dressing in place as prescribed Yes Yes Yes Has compression in place as prescribed N/A N/A N/A Has offloadiing in place as prescribed N/A N/A N/A Experienced any changes in pain level or No No No management Left Footwear Regular Shoe Right Footwear Regular Shoe Pain Scale: 0-10 Numeric Is Patient Pain Free? Yes No No R axilla -Description Sharp -Pain Behavior Guarding, Withdrawal from Touch -Alleviating Factors/Interventions Medication -Effectiveness of Alleviating Factor/ Moderately Intervention effective -Comments Painwith dressing removal 11/15/22 11:14 WC - Today's Visit Information Type of service Follow-up Visit (Physician/ANIMAL CARE SUPERVISOR ) Arrival Mode Ambulatory Transfer Assistance Patient Identification Verified (Name & Yes ) Patient Requires Transmission-Based No Precautions Safety Precautions NA Height and Weight Body Mass Index (BMI) 21.1 BMI Classification Normal Vital Signs Temperature (97.8 F-99.1 F) 97.1 F L Temperature Source Temporal Pulse Rate (60-100) 44 L Pulse Location Monitor Respiratory Rate (12-18) Respiratory rate source Blood Pressure (90/60-120/80) 117/65 Blood Pressure Mean (mm Hg) 82 Source Monitor History Since Last Visit- (Skip if this is Patient's initial visit) Have you changed medications since your No last visit? Any new allergies or adverse reactions No Had a fall/change in ADL's that may No increase risk of falls Signs or symptoms of abuse and/or No neglect since last visit Have you been in the hospital since your No last visit? Has dressing in place as prescribed Yes Has compression in place as prescribed N/A Has offloadiing in place as prescribed N/A Experienced any changes in pain level or No management Left Footwear Regular Shoe Right Footwear Regular Shoe Pain Scale: 0-10 Numeric Is Patient Pain Free? No R axilla -Description -Pain Behavior -Alleviating Factors/Interventions -Effectiveness of Alleviating Factor/ Intervention -Comments WC - Nurse 1 - General Ulcer Measurement Start: 10/25/22 11:12 Freq: Status: Active Protocol: Activity Type Activity Date Activity User E-sign Co-sign Detail Recorded Client Recorded Date Recorded By Document 10/25/22 11:15 DL [id number] 10/25/22 11:26 DL Document 11/01/22 11:29 DL [id number] 11/01/22 11:36 DL Document 11/08/22 11:48 AK [id number] 11/08/22 11:49 AK Document 11/15/22 11:14 AK [id number] 11/15/22 11:17 AK 10/25/22 11/01/22 11/08/22 11:15 11:29 11:48 Wound Center Nurse 1 #1 R Axilla -Combined with other wound No -Current Size (cm) - Length 4.5 4 5 -Current Size (cm) - Width 6.8 6.5 2.4 -Current Size (cm) - Depth 1.5 0.9 0.1 -Total Square Cm 30.60 26.0 12.0 -Date of Last Picture (Recall this field) -Photo Taken Yes Yes No -Tunneling No -Undermining/Tunneling No -Circular Undermining No -Change in Wound Grade/Stage -Exudate Amt Medium Medium -Exudate Type Serosanguineous Serosanguineous -Wound Margin Distinct, Fibrotic Scar, Outline Thickened Scar Attached -Granulation Amt Large (67-100%) Large (67-100%) -Granulation Quality Red Red -Slough/Fibrin -Necrosis Amt Small (1-33%) Small (1-33%) -Necrotic Tissue Type Adherent Slough Adherent Slough -Structure Exposed N/A N/A -Texture (Mariaelena-wound Skin Appearance) No Abnormality Scarring -Moisture (Mariaelena-wound Skin Appearance) No Abnormality No Abnormality -Color (Mariaelena-wound Skin Appearance) No Abnormality No Abnormality -Temperature (Mariaelena-wound Skin No Abnormality No Abnormality No Abnormality Appearance) (Pt Warm) (Pt Warm) (Pt Warm) -Tenderness on Palpation (Mariaelena-wound Yes Yes Yes Skin Appearance) -Ulcer Cleansing Soap and Water Soap and Water Soap and Water -Foul Odor after Cleansing No No No -Anesthetic Used 4% Lidocaine 4% Lidocaine 4% Lidocaine Solution Solution,5% Solution,5% Lidocaine Gel Lidocaine Gel Lower Limb Edema Present No 11/15/22 11:14 Wound Center Nurse 1 #1 R Axilla -Combined with other wound No -Current Size (cm) - Length 2.5 -Current Size (cm) - Width 4.5 -Current Size (cm) - Depth 0.1 -Total Square Cm 11.25 -Date of Last Picture (Recall this 05/24/23 field) -Photo Taken Yes -Tunneling No -Undermining/Tunneling No -Circular Undermining No -Change in Wound Grade/Stage No -Exudate Amt Large -Exudate Type Serosanguineous -Wound Margin Distinct, Outline Attached -Granulation Amt Large (67-100%) -Granulation Quality Red -Slough/Fibrin Yes -Necrosis Amt Small (1-33%) -Necrotic Tissue Type Adherent Slough -Structure Exposed N/A -Texture (Mariaelena-wound Skin Appearance) Assessed, Scarring -Moisture (Mariaelena-wound Skin Appearance) No Abnormality, Assessed -Color (Mariaelena-wound Skin Appearance) No Abnormality, Assessed -Temperature (Mariaelena-wound Skin No Abnormality Appearance) (Pt Warm) -Tenderness on Palpation (Mariaelena-wound No Skin Appearance) -Ulcer Cleansing Soap and Water -Foul Odor after Cleansing No -Anesthetic Used 4% Lidocaine Solution Lower Limb Edema Present No WC - Nurse 2 - General Ulcer CM Notes Start: 10/25/22 11:12 Freq: Status: Active Protocol: Activity Type Activity Date Activity User E-sign Co-sign Detail Recorded Client Recorded Date Recorded By Document 10/25/22 11:49 [id number] 10/25/22 11:57 Document 11/01/22 11:52 [id number] 11/01/22 12:09 Document 11/08/22 11:31 [id number] 11/08/22 11:32 Document 11/15/22 11:27 [id number] 11/15/22 11:33 Document 11/22/22 12:20 [id number] 11/22/22 12:24 10/25/22 11/01/22 11/08/22 11:49 11:52 11:31 Wound Center Nurse 2 #1 R Axilla -Time 11:55 11:55 11:31 -Correct Patient Yes Yes Yes -Correct Side, Site, Position Yes Yes Yes -Correct Procedure Yes Yes Yes -Procedure Performed Yes Yes Yes -Type of Procedure Debridement Debridement Debridement -Clinical Debridement Muscle / Fascia Muscle / Fascia Subcutaneous -Tissue Removed Muscle,Fascia Muscle Subcutaneous -Post Debridement (cm) - Length 7.5 7.4 5.0 -Post Debridement (cm) - Width 4.5 3.8 3.4 -Post Debridement (cm) - Depth 1.2 0.7 0.4 -Total Square (Post) (cm) 33.75 28.12 17.00 -Area of Debridement (cm) - Length 7.5 7.4 5.0 -Area of Debridement (cm) - Width 4.5 3.8 3.4 -Total Square (Area) (cm) 33.75 28.12 17.00 -Tunneling No No No -Undermining/Tunneling No No No -Circular Undermining No No No -Wound/Ulcer Outcome Not Healed Not Healed Not Healed -Ulcer Cleansing Rinsed/ Rinsed/ Rinsed/ Irrigated with Irrigated with Irrigated with Saline Saline Saline -Foul Odor after Cleansing No No No -Bioengineered Tissue No No No -Bleeding Controlled with Pressure Pressure Pressure -Treatment Response Procedure Procedure Procedure Tolerated Well Tolerated Well Tolerated Well -Offloading No No -Debridement - Subq, 1st 20sq cm Yes -Debridement - Muscle / Fascia, 1st Yes Yes 20sq cm -Debridement, Muscle/Fascia, ea addt'l 1 1 20sq cm or part thereof Pain Scale: 0-10 Numeric Is Patient Pain Free? Yes Yes Yes 11/15/22 11/22/22 11:27 12:20 Wound Center Nurse 2 #1 R Axilla -Time 11:32 12:20 -Correct Patient Yes Yes -Correct Side, Site, Position Yes Yes -Correct Procedure Yes Yes -Procedure Performed Yes Yes -Type of Procedure Debridement Debridement -Clinical Debridement Subcutaneous Subcutaneous -Tissue Removed Subcutaneous Subcutaneous -Post Debridement (cm) - Length 4.5 4.2 -Post Debridement (cm) - Width 2.7 2.0 -Post Debridement (cm) - Depth 0.1 0.3 -Total Square (Post) (cm) 12.15 8.40 -Area of Debridement (cm) - Length 4.5 4.2 -Area of Debridement (cm) - Width 2.7 2.0 -Total Square (Area) (cm) 12.15 8.40 -Tunneling No No -Undermining/Tunneling No No -Circular Undermining No No -Wound/Ulcer Outcome Not Healed Not Healed -Ulcer Cleansing Rinsed/ Rinsed/ Irrigated with Irrigated with Saline Saline -Foul Odor after Cleansing No No -Bioengineered Tissue No No -Bleeding Controlled with Pressure Pressure,Silver Nitrate -Treatment Response Procedure Procedure Tolerated Well Tolerated Well -Offloading No No -Debridement - Subq, 1st 20sq cm Yes Yes -Debridement - Muscle / Fascia, 1st 20sq cm -Debridement, Muscle/Fascia, ea addt'l 20sq cm or part thereof Pain Scale: 0-10 Numeric Is Patient Pain Free? Yes Yes - Nurse 3 - General Ulcer D/C NN Start: 10/25/22 11:12 Freq: Status: Active Protocol: Activity Type Activity Date Activity User E-sign Co-sign Detail Recorded Client Recorded Date Recorded By Document 10/25/22 12:27 DL [id number] 10/25/22 12:28 DL Document 11/08/22 11:49 AK [id number] 11/08/22 11:50 AK 10/25/22 11/08/22 12:27 11:49 Wound Care Center Nurse 3 #1 R Axilla -Ulcer Cleansing Rinsed/ Rinsed/ Irrigated with Irrigated with Saline Saline -Foul Odor after Cleansing No No -Negative Pressure Wound Therapy N/A -Primary Dressing Applied Hysept ($) Aquacel AG 4x4 -Other Dressing ABD -Primary Dressing Covered/Secured with Dry Gauze, Secured with Tape -Aquacel AG 4x4 1 Treatment Response Procedure Tolerated Well Pain Scale: 0-10 Numeric Is Patient Pain Free? Yes No WC - Visit Discharge Discharge Condition Stable Stable Ambulatory Status Ambulatory Ambulatory Transportation Private Auto Private Auto Medication Reconcilliation completed & Yes provided to patient/care provider Clinical Summary of Care Provided Yes Facility Type Home Health Orders Sent Yes Assessment/Plan Assessment/Plan (1) Open wound of right axillary region: CODE(S): S41.101A - Unspecified open wound of right upper arm, initial encounter (2) Right axillary hidradenitis: CODE(S): L73.2 - Hidradenitis suppurativa (3) Other acute postprocedural pain: CODE(S): G89.18 - Other acute postprocedural pain PLAN: Plan Patient evaluated at the wound healing center today. Wound care - She does not have help daily with her dressing changes and she does not feel able to to the dressing change herself. Will place slightly moistened Aquacel-Ag every other day covered by ABD. Ideally having her dressing changed daily would be more beneficial. Hopefully, eventually she will be able to change the dressing herself. She is wearing a single layer tubigrip on her right arm for compression. Patient may shower before the dressing change and wash the wound with soap and water. Operative culture shows LONG. She completed the Linezolid. Encouraged range of motion of her right shoulder to help prevent her shoulder from getting stiff. She is having difficulty with full ROM of her right shoulder. Demonstrated how she should move her shoulder. PT has started for evaluation, range of motion and strengthening. She is less anxious this week. She is tolerating the Lexapro well and states that it is helping with her anxiety. Follow up one week. Call or come in sooner if have any concerns.
== END 2022-11-22 23:59 | disposition home or self-care (01) ==
LOC: WC 11:45
PROVIDERS: PCP Nurse Practitioner Family; Referring Provider Nurse Practitioner Family; Visit Provider Nurse Practitioner Family
DX: S41.101A Unspecified open wound of right upper arm, initial encounter (principal); L73.2 Hidradenitis suppurativa; L30.9 Dermatitis, unspecified; G89.18 Other acute postprocedural pain; Z79.899 Other long term (current) drug therapy
CPT/HCPCS: 11042; 11043; 11046

== ENCOUNTER 2022-12-20 11:15 | Outpatient (RCR) | payer OTHER, SELFPAY ==
[2022-11-23 00:39] VITALS: BP 135/75; PULSE 78; RESP 20; TEMP 36.8; BMI 21.1
[2022-11-29 11:13] VITALS: BP 131/79; PULSE 68; TEMP 36.3; BMI 21.1
--- NOTE | 2022-11-29 12:24 | PCM.WC.PN ---
History of Present Illness Date of Service: 11/29/22 Chief Complaint: right axilla Hidradenitis excision History of Wound: 52 year old woman presents with increasing pain and redness and swelling right axilla that started a couple months ago. She has had I&D procedures by Dr. Arita. 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 She has a history of eczema and had been on Dupixent in the past. She thinks the eczema has worsened recently since the development of her right axillary hidradenitis. She saw a Manager Validation for the eczema. Surgery 10/05/22 - Surgical preparation right axilla with excision hidradenitis (60 cm2). She was discharged on 10/06/22 with home health to assist with the wound VAC dressing changes 3 times per week. Preliminary operative cultures positive for Staphylococcus epidermidis. Waiting for sensitivities. She is currently on Doxycycline. Wound care is Aquacel-Ag slightly moistened covered with ABD. At present, she denies fever, chills, nausea, vomiting. Progress of Wound: Right axilla incision is smaller in size. It is beefy pink with hypergranulation tissue present. Mariaelena wound is clear. She has started PT for ROM and strengthening of her right shoulder and she states she is able to move her shoulder better. Objective Data Objective Data Vital Signs: Vital Signs Temp Pulse Resp BP 97.4 F L 68 20 H 131/79 H 11/29/22 11:13 11/29/22 11:13 11/23/22 00:39 11/29/22 11:13 Weight: 126 lb 12.519 oz Body Mass Index (BMI) 21.1 Charges/Coding Procedures Integumentary 111xxx-113xx: 64403 Global Visit Debridement Note Debridement Note Wound debrided: Axilla wound Laterality: Right Wound Grade/Stage: Stage IV Type of Debridement: Excisional debridement Anesthesia Used: 4% Lidocaine Solution and 5% Lidocaine Gel Depth: Down to and including healthy tissue and in the subcutaneous layer Percentage of wound debrided: 100 Instrument Used: 5mm curette Tissue Removed: Devitalized tissue and slough, hypergranulation tisssue present. Severity: Fat Layer Exposed Amount of bleeding with debridement: Mild Bleeding Controlled with: Pressure, Compression and gauze and Silver Nitrate Patient tolerated procedure: Patient tolerated procedure well Debridement Free Text: Patient doing much better this week with the debridement. Silver nitrate used due to the hypergranulation tissue present. Post-Debridement Measurements and Additional Note: Post-Debridement Measurements/Treatment - Nurse 1 - General Ulcer Assessment Start: 11/29/22 11:13 Freq: Status: Active Protocol: JOSÉ Activity Type Activity Date Activity User E-sign Co-sign Detail Recorded Client Recorded Date Recorded By Document 11/29/22 11:13 NIKIA [id number] 11/29/22 11:14 NIKIA 11/29/22 11:13 WC - Today's Visit Information Type of service Follow-up Visit (Physician/FINANCIAL COACH ) Arrival Mode Ambulatory Patient Identification Verified (Name & Yes ) Patient Requires Transmission-Based No Precautions Height and Weight Body Mass Index (BMI) 21.1 BMI Classification Normal Vital Signs Temperature (97.8 F-99.1 F) 97.4 F L Temperature Source Temporal Pulse Rate (60-100) 68 Pulse Location Monitor Blood Pressure (90/60-120/80) 131/79 H Blood Pressure Mean (mm Hg) 96 Source Monitor History Since Last Visit- (Skip if this is Patient's initial visit) Have you changed medications since your No last visit? Any new allergies or adverse reactions No Had a fall/change in ADL's that may No increase risk of falls Signs or symptoms of abuse and/or No neglect since last visit Have you been in the hospital since your No last visit? Has dressing in place as prescribed Yes Has compression in place as prescribed Yes Has offloadiing in place as prescribed N/A Experienced any changes in pain level or No management Left Footwear Regular Shoe Right Footwear Regular Shoe Pain Scale: 0-10 Numeric Is Patient Pain Free? No - Nurse 1 - General Ulcer Measurement Start: 11/29/22 11:13 Freq: Status: Active Protocol: Activity Type Activity Date Activity User E-sign Co-sign Detail Recorded Client Recorded Date Recorded By Document 11/29/22 11:13 NIKIA [id number] 11/29/22 11:14 NIKIA 11/29/22 11:13 Wound Center Nurse 1 #1 R Axilla -Combined with other wound No -Current Size (cm) - Length 3.4 -Current Size (cm) - Width 2.2 -Current Size (cm) - Depth 0.1 -Total Square Cm 7.48 -Date of Last Picture (Recall this 11/29/22 field) -Photo Taken Yes -Tunneling No -Undermining/Tunneling No -Circular Undermining No -Change in Wound Grade/Stage No -Exudate Amt Medium -Exudate Type Serosanguineous -Wound Margin Distinct, Outline Attached -Granulation Amt Large (67-100%) -Granulation Quality Red -Slough/Fibrin No -Necrosis Amt None Present (0 %) -Structure Exposed N/A -Texture (Mariaelena-wound Skin Appearance) Assessed, Scarring -Moisture (Mariaelena-wound Skin Appearance) No Abnormality, Assessed -Color (Mariaelena-wound Skin Appearance) No Abnormality, Assessed -Temperature (Mariaelena-wound Skin No Abnormality Appearance) (Pt Warm) -Tenderness on Palpation (Mariaelena-wound No Skin Appearance) -Ulcer Cleansing Soap and Water -Foul Odor after Cleansing No -Anesthetic Used 5% Lidocaine Gel WC - Nurse 2 - General Ulcer CM Notes Start: 11/29/22 11:13 Freq: Status: Active Protocol: Activity Type Activity Date Activity User E-sign Co-sign Detail Recorded Client Recorded Date Recorded By Document 11/29/22 12:05 JAIME [id number] 11/29/22 12:06 JAIME 11/29/22 12:05 Wound Center Nurse 2 -Time 12:05 -Correct Patient Yes -Correct Side, Site, Position Yes -Correct Procedure Yes -Procedure Performed Yes -Type of Procedure Debridement -Clinical Debridement Subcutaneous -Tissue Removed Subcutaneous -Post Debridement (cm) - Length 4.0 -Post Debridement (cm) - Width 2.3 -Post Debridement (cm) - Depth 0.6 -Total Square (Post) (cm) 9.20 -Area of Debridement (cm) - Length 4.0 -Area of Debridement (cm) - Width 2.3 -Total Square (Area) (cm) 9.20 -Tunneling No -Undermining/Tunneling No -Circular Undermining No -Wound/Ulcer Outcome Not Healed -Ulcer Cleansing Rinsed/ Irrigated with Saline -Foul Odor after Cleansing No -Bioengineered Tissue No -Bleeding Controlled with Pressure,Silver Nitrate -Treatment Response Procedure Tolerated Well -Offloading No -Debridement - Subq, 1st 20sq cm Yes Pain Scale: 0-10 Numeric Is Patient Pain Free? Yes - Nurse 3 - General Ulcer D/C NN Start: 11/29/22 11:13 Freq: Status: Active Protocol: Activity Type Activity Date Activity User E-sign Co-sign Detail Recorded Client Recorded Date Recorded By Document 11/29/22 12:10 RB [id number] 11/29/22 12:12 RB 11/29/22 12:10 Wound Care Center Nurse 3 #1 R Axilla -Ulcer Cleansing Rinsed/ Irrigated with Saline -Primary Dressing Applied Aquacel AG 4x4 -Primary Dressing Covered/Secured with Dry Gauze, Secured with Tape -Aquacel AG 4x4 1 Treatment Response Procedure Tolerated Well Pain Scale: 0-10 Numeric Is Patient Pain Free? Yes WC - Visit Discharge Discharge Condition Stable Ambulatory Status Ambulatory Transportation Private Auto Medication Reconcilliation completed & No provided to patient/care provider Clinical Summary of Care Provided Yes Assessment/Plan Assessment/Plan (1) Skin ulcer of axilla with fat layer exposed: CODE(S): L98.492 - Non-pressure chronic ulcer of skin of other sites with fat layer exposed (2) Right axillary hidradenitis: CODE(S): L73.2 - Hidradenitis suppurativa (3) Stiffness of right shoulder joint: CODE(S): M25.611 - Stiffness of right shoulder, not elsewhere classified PLAN: Plan Patient evaluated at the wound healing center today. Wound care - She does not have help daily with her dressing changes and she does not feel able to to the dressing change herself. Will place slightly moistened Aquacel-Ag every other day covered by ABD. Ideally having her dressing changed daily would be more beneficial. Hopefully, eventually she will be able to change the dressing herself. She is wearing a single layer tubigrip on her right arm for compression. Patient may shower before the dressing change and wash the wound with soap and water. Operative culture shows MRSE. She completed the Linezolid. Encouraged range of motion of her right shoulder to help prevent her shoulder from getting stiff. PT has started for evaluation, range of motion and strengthening. She is less anxious this week. She is tolerating the Lexapro well and states that it is helping with her anxiety. Follow up one week. Call or come in sooner if have any concerns.
--- NOTE | 2022-12-06 12:41 | PN.PCM_ITS ---
History of Present Illness Date of Service: 12/06/22 Chief Complaint: right axilla Hidradenitis excision History of Wound: 52 year old woman presents with increasing pain and redness and swelling right axilla that started a couple months ago. She has had I&D procedures by Dr. Arita. She works in Housekeeping at [employer] and states she may be allergic to the chemicals used for cleaning. She has a history of eczema and had been on Dupixent in the past. She thinks the eczema has worsened recently since the development of her right axillary hidradenitis. She saw a Sand Mill Operator [employer] for the eczema. Surgery 10/05/22 - Surgical preparation right axilla with excision hidradenitis (60 cm2). She was discharged on 10/06/22 with home health to assist with the wound VAC dressing changes 3 times per week. Preliminary operative cultures positive for Staphylococcus epidermidis. Waiting for sensitivities. She is currently on Doxycycline. Wound care is Aquacel-Ag slightly moistened covered with ABD. At present, she denies fever, chills, nausea, vomiting. Progress of Wound: Right axilla incision is smaller in size. It is beefy pink with hypergranulation tissue present. Mariaelena wound is clear. She has started PT for ROM and strengthening of her right shoulder and she states she is able to move her shoulder better. She continues to have a significant amount of anxiety and is often tearful. She states that she never has received counseling and the only medication she is on for her anxiety is the escitalopram that I placed her on. Objective Data Objective Data Vital Signs: Vital Signs Temp Pulse Resp BP 97.4 F L 68 20 H 131/79 H 11/29/22 11:13 11/29/22 11:13 11/23/22 00:39 11/29/22 11:13 Weight: 126 lb 12.519 oz Body Mass Index (BMI) 21.1 Charges/Coding Procedures Integumentary 111xxx-113xx: 56764 Global Visit Debridement Note Debridement Note Wound debrided: Axilla wound Laterality: Right Wound Grade/Stage: Stage IV Type of Debridement: Excisional debridement Anesthesia Used: 4% Lidocaine Solution and 5% Lidocaine Gel Depth: Down to and including healthy tissue and in the subcutaneous layer Percentage of wound debrided: 100 Instrument Used: 5mm curette Tissue Removed: Devitalized tissue and slough, hypergranulation tisssue present. Severity: Fat Layer Exposed Amount of bleeding with debridement: Mild Bleeding Controlled with: Pressure, Compression and gauze and Silver Nitrate Patient tolerated procedure: Patient tolerated procedure well Debridement Free Text: Patient tolerating debridement well. Silver nitrate used due to the presence of hypergranulation tissue. Post-Debridement Measurements and Additional Note: Post-Debridement Measurements/Treatment NASRA - Nurse 1 - General Ulcer Assessment Start: 11/29/22 11:13 Freq: Status: Active Protocol: JOSÉ Activity Type Activity Date Activity User E-sign Co-sign Detail Recorded Client Recorded Date Recorded By Document 11/29/22 11:13 NIKIA [id number] 11/29/22 11:14 NIKIA 11/29/22 11:13 WC - Today's Visit Information Type of service Follow-up Visit (Physician/ARTIFICIAL CANDY MAKER ) Arrival Mode Ambulatory Patient Identification Verified (Name & Yes ) Patient Requires Transmission-Based No Precautions Height and Weight Body Mass Index (BMI) 21.1 BMI Classification Normal Vital Signs Temperature (97.8 F-99.1 F) 97.4 F L Temperature Source Temporal Pulse Rate (60-100) 68 Pulse Location Monitor Blood Pressure (90/60-120/80) 131/79 H Blood Pressure Mean (mm Hg) 96 Source Monitor History Since Last Visit- (Skip if this is Patient's initial visit) Have you changed medications since your No last visit? Any new allergies or adverse reactions No Had a fall/change in ADL's that may No increase risk of falls Signs or symptoms of abuse and/or No neglect since last visit Have you been in the hospital since your No last visit? Has dressing in place as prescribed Yes Has compression in place as prescribed Yes Has offloadiing in place as prescribed N/A Experienced any changes in pain level or No management Left Footwear Regular Shoe Right Footwear Regular Shoe Pain Scale: 0-10 Numeric Is Patient Pain Free? No - Nurse 1 - General Ulcer Measurement Start: 11/29/22 11:13 Freq: Status: Active Protocol: Activity Type Activity Date Activity User E-sign Co-sign Detail Recorded Client Recorded Date Recorded By Document 11/29/22 11:13 NIKIA [id number] 11/29/22 11:14 NIKIA 11/29/22 11:13 Wound Center Nurse 1 #1 R Axilla -Combined with other wound No -Current Size (cm) - Length 3.4 -Current Size (cm) - Width 2.2 -Current Size (cm) - Depth 0.1 -Total Square Cm 7.48 -Date of Last Picture (Recall this 11/29/22 field) -Photo Taken Yes -Tunneling No -Undermining/Tunneling No -Circular Undermining No -Change in Wound Grade/Stage No -Exudate Amt Medium -Exudate Type Serosanguineous -Wound Margin Distinct, Outline Attached -Granulation Amt Large (67-100%) -Granulation Quality Red -Slough/Fibrin No -Necrosis Amt None Present (0 %) -Structure Exposed N/A -Texture (Mariaelena-wound Skin Appearance) Assessed, Scarring -Moisture (Mariaelena-wound Skin Appearance) No Abnormality, Assessed -Color (Mariaelena-wound Skin Appearance) No Abnormality, Assessed -Temperature (Mariaelena-wound Skin No Abnormality Appearance) (Pt Warm) -Tenderness on Palpation (Mariaelena-wound No Skin Appearance) -Ulcer Cleansing Soap and Water -Foul Odor after Cleansing No -Anesthetic Used 5% Lidocaine Gel WC - Nurse 2 - General Ulcer CM Notes Start: 11/29/22 11:13 Freq: Status: Active Protocol: Activity Type Activity Date Activity User E-sign Co-sign Detail Recorded Client Recorded Date Recorded By Document 11/29/22 12:05 [id number] 11/29/22 12:06 Document 12/06/22 12:02 [id number] 12/06/22 12:03 11/29/22 12/06/22 12:05 12:02 Wound Center Nurse 2 #1 R Axilla -Time 12:05 12:02 -Correct Patient Yes Yes -Correct Side, Site, Position Yes Yes -Correct Procedure Yes Yes -Procedure Performed Yes Yes -Type of Procedure Debridement Debridement -Clinical Debridement Subcutaneous Subcutaneous -Tissue Removed Subcutaneous Subcutaneous -Post Debridement (cm) - Length 4.0 3.6 -Post Debridement (cm) - Width 2.3 2.4 -Post Debridement (cm) - Depth 0.6 0.1 -Total Square (Post) (cm) 9.20 8.64 -Area of Debridement (cm) - Length 4.0 3.6 -Area of Debridement (cm) - Width 2.3 2.4 -Total Square (Area) (cm) 9.20 8.64 -Tunneling No No -Undermining/Tunneling No No -Circular Undermining No No -Wound/Ulcer Outcome Not Healed Not Healed -Ulcer Cleansing Rinsed/ Rinsed/ Irrigated with Irrigated with Saline Saline -Foul Odor after Cleansing No No -Bioengineered Tissue No No -Bleeding Controlled with Pressure,Silver Pressure,Silver Nitrate Nitrate -Treatment Response Procedure Procedure Tolerated Well Tolerated Well -Offloading No No -Debridement - Subq, 1st 20sq cm Yes Yes Pain Scale: 0-10 Numeric Is Patient Pain Free? Yes Yes - Nurse 3 - General Ulcer D/C NN Start: 11/29/22 11:13 Freq: Status: Active Protocol: Activity Type Activity Date Activity User E-sign Co-sign Detail Recorded Client Recorded Date Recorded By Document 11/29/22 12:10 NATALIE [id number] 11/29/22 12:12 NATALIE 11/29/22 12:10 Wound Care Center Nurse 3 #1 R Axilla -Ulcer Cleansing Rinsed/ Irrigated with Saline -Primary Dressing Applied Aquacel AG 4x4 -Primary Dressing Covered/Secured with Dry Gauze, Secured with Tape -Aquacel AG 4x4 1 Treatment Response Procedure Tolerated Well Pain Scale: 0-10 Numeric Is Patient Pain Free? Yes WC - Visit Discharge Discharge Condition Stable Ambulatory Status Ambulatory Transportation Private Auto Medication Reconcilliation completed & No provided to patient/care provider Clinical Summary of Care Provided Yes Assessment/Plan Assessment/Plan (1) Skin ulcer of axilla with fat layer exposed: CODE(S): L98.492 - Non-pressure chronic ulcer of skin of other sites with fat layer exposed (2) Right axillary hidradenitis: CODE(S): L73.2 - Hidradenitis suppurativa (3) Stiffness of right shoulder joint: CODE(S): M25.611 - Stiffness of right shoulder, not elsewhere classified PLAN: Plan Patient evaluated at the wound healing center today. Wound care - She does not have help daily with her dressing changes and she does not feel able to to the dressing change herself. Will place slightly moistened Aquacel-Ag every other day covered by ABD. Ideally having her dressing changed daily would be more beneficial. Hopefully, eventually she will be able to change the dressing herself. She is wearing a single layer tubigrip on her right arm for compression. Patient may shower before the dressing change and wash the wound with soap and water. Operative culture shows LONG. She completed the Linezolid. Encouraged range of motion of her right shoulder to help prevent her shoulder from getting stiff. PT has started for evaluation, range of motion and strengthening. She is tolerating the Lexapro well and states that it is helping with her anxiety. She continues to be anxious. I spoke with the patient about doing counseling/therapy to help with her anxiety and she seems receptive to it. I spoke to Farida the high school social studies teacher through home health about helping Sandra possibly finding a counselor or if she needs referral to Psychiatry for further evaluation and treatment of her severe anxiety. Follow up one week. Call or come in sooner if have any concerns.
[2022-12-06 13:20] VITALS: BP 127/78; PULSE 95; TEMP 35.8; BMI 21.1
[2022-12-13 11:50] VITALS: BP 127/62; PULSE 83; TEMP 36.2; BMI 21.1
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
[2022-12-20 11:29] VITALS: BP 135/87; PULSE 76; RESP 18; TEMP 36.3; BMI 21.1
--- NOTE | 2022-12-20 16:29 | PN.PCM_ITS ---
History of Present Illness Date of Service: 12/20/22 Chief Complaint: right axilla Hidradenitis excision History of Wound: 52 year old woman presents with increasing pain and redness and swelling right axilla that started a couple months ago. She has had I&D procedures by Dr. Arita. She works in Housekeeping at [employer] and states she may be allergic to the chemicals used for cleaning. She has a history of eczema and had been on Dupixent in the past. She thinks the eczema has worsened recently since the development of her right axillary hidradenitis. She saw a [employer] Jointer for the eczema. Surgery 10/05/22 - Surgical preparation right axilla with excision hidradenitis (60 cm2). She was discharged on 10/06/22 with home health to assist with the wound VAC dressing changes 3 times per week. Preliminary operative cultures positive for Staphylococcus epidermidis. Waiting for sensitivities. She is currently on Doxycycline. Wound care is Aquacel-Ag slightly moistened covered with ABD. At present, she denies fever, chills, nausea, vomiting. Progress of Wound: Right axilla ulcer is smaller in size. It is beefy pink with hypergranulation tissue present. Mariaelena wound is clear. She has started PT for ROM and strengthening of her right shoulder and she states she is able to move her shoulder better. She continues to have a significant amount of anxiety and is often tearful. She states that she never has received counseling. The social professionals from [facility] saw her last week and she gave her a list of counselors to try and get an appointment. Sandra did not want the social professionals to help her make phone calls to actually schedule an appointment. Sandra has not scheduled anything. We will extend her return to work date to 01/01/23. Her job does cause her quite a bit of anxiety. Because she is going back to work, [facility] will not be able to continue their services. They will teach her mom to change the dressing. I stressed to Sandra that she should be able to learn how to change her dressing herself. Ideally if she learned how to change her dressing, she could change it every day. I think more frequent dressing changes would help quicken the wound healing process. Objective Data Objective Data Vital Signs: Vital Signs Temp Pulse Resp BP 97.3 F L 76 18 135/87 H 12/20/22 11:29 12/20/22 11:29 12/20/22 11:29 12/20/22 11:29 Weight: 126 lb 12.519 oz Body Mass Index (BMI) 21.1 Charges/Coding Procedures Integumentary 111xxx-113xx: [id number] Global Visit Debridement Note Debridement Note Wound debrided: Axilla wound Laterality: Right Wound Grade/Stage: Stage IV Type of Debridement: Excisional debridement Anesthesia Used: 4% Lidocaine Solution and 5% Lidocaine Gel Depth: Down to and including healthy tissue and in the subcutaneous layer Percentage of wound debrided: 100 Instrument Used: 5mm curette Tissue Removed: Devitalized tissue and slough, hypergranulation tisssue present. Severity: Fat Layer Exposed Amount of bleeding with debridement: Mild Bleeding Controlled with: Pressure and Compression and gauze Patient tolerated procedure: Patient tolerated procedure well Debridement Free Text: Patient tolerating debridement well. Post-Debridement Measurements and Additional Note: Post-Debridement Measurements/Treatment - Nurse 1 - General Ulcer Assessment Start: 11/29/22 11:13 Freq: Status: Active Protocol: JOSÉ Activity Type Activity Date Activity User E-sign Co-sign Detail Recorded Client Recorded Date Recorded By Document 11/29/22 11:13 AK [id number] 11/29/22 11:14 AK Document 12/06/22 13:20 AK [id number] 12/06/22 13:22 AK Document 12/13/22 11:50 AK [id number] 12/13/22 11:52 AK Document 12/20/22 11:29 RB [id number] 12/20/22 11:31 RB 11/29/22 12/06/22 12/13/22 11:13 13:20 11:50 - Today's Visit Information Type of service Follow-up Visit Follow-up Visit Follow-up Visit (Physician/ECOSYSTEM ECOLOGY PROFESSOR (Physician/ECOSYSTEM ECOLOGY PROFESSOR (Physician/ECOSYSTEM ECOLOGY PROFESSOR ) ) ) Arrival Mode Ambulatory Ambulatory Ambulatory Transfer Assistance Patient Identification Verified (Name & Yes No No ) Patient Requires Transmission-Based No No No Precautions Safety Precautions NA NA Height and Weight Body Mass Index (BMI) 21.1 21.1 21.1 BMI Classification Normal Normal Normal Vital Signs Temperature (97.8 F-99.1 F) 97.4 F L 96.4 F L 97.1 F L Temperature Source Temporal Temporal Temporal Pulse Rate (60-100) 68 95 83 Pulse Location Monitor Monitor Monitor Respiratory Rate (12-18) Respiratory rate source Blood Pressure (90/60-120/80) 131/79 H 127/78 H 127/62 H Blood Pressure Mean (mm Hg) 96 94 83 Source Monitor Monitor Monitor Position Blood Pressure Location History Since Last Visit- (Skip if this is Patient's initial visit) Have you changed medications since your No No No last visit? Any new allergies or adverse reactions No No No Had a fall/change in ADL's that may No No No increase risk of falls Signs or symptoms of abuse and/or No No No neglect since last visit Have you been in the hospital since your No No No last visit? Has dressing in place as prescribed Yes No Yes Has compression in place as prescribed Yes Yes N/A Has offloadiing in place as prescribed N/A N/A N/A Experienced any changes in pain level or No No No management Left Footwear Regular Shoe Regular Shoe Regular Shoe Right Footwear Regular Shoe Regular Shoe Regular Shoe Pain Scale: 0-10 Numeric Is Patient Pain Free? No Yes No R axilla -Description -Intensity -Duration (hours) -Pain Behavior -Pain Aggravating Factors -Alleviating Factors/Interventions 12/20/22 11:29 WC - Today's Visit Information Type of service Follow-up Visit (Physician/ECOSYSTEM ECOLOGY PROFESSOR ) Arrival Mode Ambulatory Transfer Assistance None Patient Identification Verified (Name & Yes ) Patient Requires Transmission-Based No Precautions Safety Precautions Height and Weight Body Mass Index (BMI) 21.1 BMI Classification Normal Vital Signs Temperature (97.8 F-99.1 F) 97.3 F L Temperature Source Temporal Pulse Rate (60-100) 76 Pulse Location Monitor Respiratory Rate (12-18) 18 Respiratory rate source Observation Blood Pressure (90/60-120/80) 135/87 H Blood Pressure Mean (mm Hg) 103 Source Monitor Position Semi-Fowlers Blood Pressure Location Left Arm History Since Last Visit- (Skip if this is Patient's initial visit) Have you changed medications since your No last visit? Any new allergies or adverse reactions No Had a fall/change in ADL's that may No increase risk of falls Signs or symptoms of abuse and/or No neglect since last visit Have you been in the hospital since your No last visit? Has dressing in place as prescribed Yes Has compression in place as prescribed No Has offloadiing in place as prescribed No Experienced any changes in pain level or No management Left Footwear Right Footwear Pain Scale: 0-10 Numeric Is Patient Pain Free? No R axilla -Description Throbbing, Burning, Pressure -Intensity 4 -Duration (hours) Acute -Pain Behavior Withdrawal from Touch -Pain Aggravating Factors ADL's -Alleviating Factors/Interventions None WC - Nurse 1 - General Ulcer Measurement Start: 11/29/22 11:13 Freq: Status: Active Protocol: Activity Type Activity Date Activity User E-sign Co-sign Detail Recorded Client Recorded Date Recorded By Document 11/29/22 11:13 AK [id number] 11/29/22 11:14 AK Document 12/06/22 13:20 AK [id number] 12/06/22 13:22 AK Document 12/13/22 11:50 AK [id number] 12/13/22 11:52 AK Document 12/20/22 11:29 RB [id number] 12/20/22 11:31 RB 11/29/22 12/06/22 12/13/22 11:13 13:20 11:50 Wound Center Nurse 1 #1 R Axilla -Combined with other wound No No No -Current Size (cm) - Length 3.4 3.5 3.2 -Current Size (cm) - Width 2.2 2.5 1.8 -Current Size (cm) - Depth 0.1 0.1 0.1 -Total Square Cm 7.48 8.75 5.76 -Date of Last Picture (Recall this 11/29/22 12/13/22 field) -Photo Taken Yes Yes Yes -Tunneling No No No -Undermining/Tunneling No No No -Circular Undermining No No No -Change in Wound Grade/Stage No No No -Exudate Amt Medium Medium Medium -Exudate Type Serosanguineous Serosanguineous Serosanguineous -Wound Margin Distinct, Distinct, Distinct, Outline Outline Outline Attached Attached Attached -Granulation Amt Large (67-100%) Large (67-100%) Large (67-100%) -Granulation Quality Red Red Red -Slough/Fibrin No No Yes -Necrosis Amt None Present (0 None Present (0 Small (1-33%) %) %) -Necrotic Tissue Type Adherent Slough -Structure Exposed N/A N/A N/A -Texture (Mariaelena-wound Skin Appearance) Assessed, Assessed, Assessed, Scarring Scarring Scarring -Moisture (Mariaelena-wound Skin Appearance) No Abnormality, No Abnormality, No Abnormality, Assessed Assessed Assessed -Color (Mariaelena-wound Skin Appearance) No Abnormality, No Abnormality, Assessed, Assessed Assessed Erythema -Temperature (Mariaelena-wound Skin No Abnormality No Abnormality No Abnormality Appearance) (Pt Warm) (Pt Warm) (Pt Warm) -Tenderness on Palpation (Mariaelena-wound No No No Skin Appearance) -Ulcer Cleansing Soap and Water Soap and Water Rinsed/ Irrigated with Saline -Foul Odor after Cleansing No No No -Anesthetic Used 5% Lidocaine 5% Lidocaine 5% Lidocaine Gel Gel Gel 12/20/22 11:29 Wound Center Nurse 1 #1 R Axilla -Combined with other wound No -Current Size (cm) - Length 3 -Current Size (cm) - Width 1.7 -Current Size (cm) - Depth 0.1 -Total Square Cm 5.1 -Date of Last Picture (Recall this field) -Photo Taken -Tunneling No -Undermining/Tunneling No -Circular Undermining No -Change in Wound Grade/Stage -Exudate Amt Large -Exudate Type Serosanguineous -Wound Margin Distinct, Outline Attached -Granulation Amt Medium (34-66%) -Granulation Quality [place],Red -Slough/Fibrin Yes -Necrosis Amt Small (1-33%) -Necrotic Tissue Type Adherent Slough -Structure Exposed N/A -Texture (Mariaelena-wound Skin Appearance) Assessed, Scarring -Moisture (Mariaelena-wound Skin Appearance) Assessed -Color (Mariaelena-wound Skin Appearance) Assessed -Temperature (Mariaelena-wound Skin No Abnormality Appearance) (Pt Warm) -Tenderness on Palpation (Mariaelena-wound No Skin Appearance) -Ulcer Cleansing Wound Cleanser -Foul Odor after Cleansing No -Anesthetic Used 5% Lidocaine Gel WC - Nurse 2 - General Ulcer CM Notes Start: 11/29/22 11:13 Freq: Status: Active Protocol: Activity Type Activity Date Activity User E-sign Co-sign Detail Recorded Client Recorded Date Recorded By Document 11/29/22 12:05 [id number] 11/29/22 12:06 Document 12/06/22 12:02 [id number] 12/06/22 12:03 Document 12/13/22 15:04 PL [id number] 12/13/22 15:05 PL Document 12/20/22 11:52 [id number] 12/20/22 11:55 11/29/22 12/06/22 12/13/22 12:05 12:02 15:04 Wound Center Nurse 2 #1 R Axilla -Time 12:05 12:02 11:52 -Correct Patient Yes Yes Yes -Correct Side, Site, Position Yes Yes Yes -Correct Procedure Yes Yes Yes -Procedure Performed Yes Yes Yes -Type of Procedure Debridement Debridement Debridement -Clinical Debridement Subcutaneous Subcutaneous Subcutaneous -Tissue Removed Subcutaneous Subcutaneous Subcutaneous -Post Debridement (cm) - Length 4.0 3.6 3.0 -Post Debridement (cm) - Width 2.3 2.4 1.7 -Post Debridement (cm) - Depth 0.6 0.1 0.2 -Total Square (Post) (cm) 9.20 8.64 5.10 -Area of Debridement (cm) - Length 4.0 3.6 3.0 -Area of Debridement (cm) - Width 2.3 2.4 1.7 -Total Square (Area) (cm) 9.20 8.64 5.10 -Tunneling No No No -Undermining/Tunneling No No No -Circular Undermining No No No -Wound/Ulcer Outcome Not Healed Not Healed Not Healed -Ulcer Cleansing Rinsed/ Rinsed/ Rinsed/ Irrigated with Irrigated with Irrigated with Saline Saline Saline -Foul Odor after Cleansing No No No -Bioengineered Tissue No No No -Bleeding Controlled with Pressure,Silver Pressure,Silver Pressure Nitrate Nitrate -Treatment Response Procedure Procedure Procedure Tolerated Well Tolerated Well Tolerated Well -Offloading No No -Debridement - Subq, 1st 20sq cm Yes Yes Yes Pain Scale: 0-10 Numeric Is Patient Pain Free? Yes Yes Yes 12/20/22 11:52 Wound Center Nurse 2 #1 R Axilla -Time 11:53 -Correct Patient Yes -Correct Side, Site, Position Yes -Correct Procedure Yes -Procedure Performed Yes -Type of Procedure Debridement -Clinical Debridement Subcutaneous -Tissue Removed Subcutaneous -Post Debridement (cm) - Length 4.0 -Post Debridement (cm) - Width 2.3 -Post Debridement (cm) - Depth 0.2 -Total Square (Post) (cm) 9.20 -Area of Debridement (cm) - Length 4.0 -Area of Debridement (cm) - Width 2.3 -Total Square (Area) (cm) 9.20 -Tunneling No -Undermining/Tunneling No -Circular Undermining No -Wound/Ulcer Outcome Not Healed -Ulcer Cleansing Rinsed/ Irrigated with Saline -Foul Odor after Cleansing No -Bioengineered Tissue No -Bleeding Controlled with Pressure -Treatment Response Procedure Tolerated Well -Offloading No -Debridement - Subq, 1st 20sq cm Yes Pain Scale: 0-10 Numeric Is Patient Pain Free? Yes WC - Nurse 3 - General Ulcer D/C NN Start: 11/29/22 11:13 Freq: Status: Active Protocol: Activity Type Activity Date Activity User E-sign Co-sign Detail Recorded Client Recorded Date Recorded By Document 11/29/22 12:10 RB [id number] 11/29/22 12:12 RB Document 12/06/22 13:20 AK [id number] 12/06/22 13:22 AK Document 12/13/22 13:29 AK [id number] 12/13/22 13:29 AK Document 12/20/22 12:08 DL [id number] 12/20/22 12:08 DL 11/29/22 12/06/22 12/13/22 12:10 13:20 13:29 Wound Care Center Nurse 3 #1 R Axilla -Ulcer Cleansing Rinsed/ Rinsed/ Rinsed/ Irrigated with Irrigated with Irrigated with Saline Saline Saline -Foul Odor after Cleansing No No -Negative Pressure Wound Therapy N/A N/A -Primary Dressing Applied Aquacel AG 4x4 Silvercel Aquacel AG 4x4 -Other Dressing ABD -Primary Dressing Covered/Secured with Dry Gauze, Secured with Dry Gauze, Secured with Tape Secured with Tape Tape -Aquacel AG 4x4 1 1 -Silvercel 1 Treatment Response Procedure Tolerated Well Vital Signs Temperature (97.8 F-99.1 F) 96.4 F L Temperature Source Temporal Pulse Rate (60-100) 95 Pulse Location Monitor Blood Pressure (90/60-120/80) 127/78 H Blood Pressure Mean (mm Hg) 94 Source Monitor Pain Scale: 0-10 Numeric Is Patient Pain Free? Yes Yes Yes WC - Visit Discharge Discharge Condition Stable Stable Ambulatory Status Ambulatory Ambulatory Transportation Private Auto Private Auto Medication Reconcilliation completed & No Yes provided to patient/care provider Clinical Summary of Care Provided Yes Yes 12/20/22 12:08 Wound Care Center Nurse 3 #1 R Axilla -Ulcer Cleansing Rinsed/ Irrigated with Saline -Foul Odor after Cleansing No -Negative Pressure Wound Therapy -Primary Dressing Applied Aquacel AG 4x4 -Other Dressing -Primary Dressing Covered/Secured with Dry Gauze, Secured with Tape -Aquacel AG 4x4 1 -Silvercel Treatment Response Procedure Tolerated Well Vital Signs Temperature (97.8 F-99.1 F) Temperature Source Pulse Rate (60-100) Pulse Location Blood Pressure (90/60-120/80) Blood Pressure Mean (mm Hg) Source Pain Scale: 0-10 Numeric Is Patient Pain Free? Yes WC - Visit Discharge Discharge Condition Stable Ambulatory Status Ambulatory Transportation Private Auto Medication Reconcilliation completed & provided to patient/care provider Clinical Summary of Care Provided Assessment/Plan Assessment/Plan (1) Skin ulcer of axilla with fat layer exposed: CODE(S): L98.492 - Non-pressure chronic ulcer of skin of other sites with fat layer exposed (2) Right axillary hidradenitis: CODE(S): L73.2 - Hidradenitis suppurativa (3) Stiffness of right shoulder joint: CODE(S): M25.611 - Stiffness of right shoulder, not elsewhere classified PLAN: Plan Patient evaluated at the wound healing center today. Wound care - She does not have help daily with her dressing changes and she does not feel able to to the dressing change herself. Will place slightly moistened Aquacel-Ag every other day covered by ABD. Ideally having her dressing changed daily would be more beneficial. Because she is going back to work, home health will not be able to continue their services. They will teach her mom to change the dressing. I stressed to Sandra that she should be able to learn how to change her dressing herself. Ideally if she learned how to change her dressing, she could change it every day. I think more frequent dressing changes would help quicken the wound healing process. She is wearing a single layer tubigrip on her right arm for compression. Patient may shower before the dressing change and wash the wound with soap and water. Operative culture shows LONG. She completed the Linezolid. Encouraged range of motion of her right shoulder to help prevent her shoulder from getting stiff. PT has started for evaluation, range of motion and strengthening. She is tolerating the Lexapro well and states that it is helping with her anxiety. She continues to be anxious. I spoke with the patient about doing counseling/therapy to help with her anxiety and she seems receptive to it. The social professionals from [facility] saw her last week and she gave her a list of counselors to try and get an appointment. Sandra did not want the social professionals to help her make phone calls to actually schedule an appointment. Sandra has not scheduled anything. We will extend her return to work date to 01/01/23. Her job does cause her quite a bit of anxiety. Follow up one week. Call or come in sooner if have any concerns.
== END 2022-12-22 23:59 | disposition home or self-care (01) ==
LOC: WC 11:15
PROVIDERS: PCP Nurse Practitioner Family; Referring Provider Nurse Practitioner Family; Visit Provider Nurse Practitioner Family
DX: L98.492 Non-pressure chronic ulcer of skin of other sites with fat layer exposed (principal); L73.2 Hidradenitis suppurativa; L30.9 Dermatitis, unspecified; M25.611 Stiffness of right shoulder, not elsewhere classified; Z79.899 Other long term (current) drug therapy
CPT/HCPCS: 11042

== ENCOUNTER 2023-01-17 10:30 | Outpatient (RCR) | payer OTHER, SELFPAY ==
[2022-12-23 01:25] VITALS: BP 135/87; PULSE 76; RESP 18; TEMP 36.3; BMI 21.1
[2022-12-27 10:56] VITALS: BP 132/75; PULSE 78; RESP 18; TEMP 36.6; BMI 21.1
--- NOTE | 2022-12-27 11:57 | PN.PCM_ITS ---
History of Present Illness Date of Service: 12/27/22 Chief Complaint: right axilla Hidradenitis excision History of Wound: 52 year old woman presents with increasing pain and redness and swelling right axilla that started a couple months ago. She has had I&D procedures by Dr. Arita. She works in Housekeeping at [employer] and states she may be allergic to the chemicals used for cleaning. She has a history of eczema and had been on Dupixent in the past. She thinks the eczema has worsened recently since the development of her right axillary hidradenitis. She saw a Enrollment Eligibility Representative for the eczema. Surgery 10/05/22 - Surgical preparation right axilla with excision hidradenitis (60 cm2). She was discharged on 10/06/22 with [facility] to assist with the wound VAC dressing changes 3 times per week. Preliminary operative cultures positive for Staphylococcus epidermidis. Waiting for sensitivities. She is currently on Doxycycline. Wound care is Aquacel-Ag slightly moistened covered with ABD. At present, she denies fever, chills, nausea, vomiting. Progress of Wound: Right axilla ulcer is smaller in size. It is beefy pink with hypergranulation tissue present. Mariaelena wound is clear. She has started PT for ROM and strengthening of her right shoulder and she states she is able to move her shoulder better. She continues to have a significant amount of anxiety and is often tearful. She states that she never has received counseling. The social sciences instructor from [facility] saw her a couple weeks ago and she gave her a list of counselors to try and get an appointment. Sandra did not want the social sciences instructor to help her make phone calls to actually schedule an appointment. Sandra still has not scheduled anything. We will extend her return to work date to 01/01/23. Her job does cause her quite a bit of anxiety. Because she is going back to work, [facility] has discharged her. Her mother is helping her with her dressing changes. I have encouraged Sandra to learn how to change the dressing herself, but she still is hesitant. Ordered PT as outpatient. She would like to go to [facility] for PT because it is closer to home. Objective Data Objective Data Vital Signs: Vital Signs Temp Pulse Resp BP 97.3 F L 76 18 135/87 H 12/23/22 01:25 12/23/22 01:25 12/23/22 01:25 12/23/22 01:25 Weight: 126 lb 12.519 oz Body Mass Index (BMI) 21.1 Charges/Coding Procedures Integumentary 111xxx-113xx: 75426 Global Visit Debridement Note Debridement Note Wound debrided: Axilla wound Laterality: Right Wound Grade/Stage: Stage IV Type of Debridement: Excisional debridement Anesthesia Used: 4% Lidocaine Solution and 5% Lidocaine Gel Depth: Down to and including healthy tissue and in the subcutaneous layer Percentage of wound debrided: 100 Instrument Used: 5mm curette Tissue Removed: Devitalized tissue and slough, hypergranulation tisssue present. Severity: Fat Layer Exposed Amount of bleeding with debridement: Mild Bleeding Controlled with: Pressure, Compression and gauze and Silver Nitrate (due to the hypergranulation tissue) Patient tolerated procedure: Patient tolerated procedure well Debridement Free Text: Patient tolerating debridement well. Post-Debridement Measurements and Additional Note: Post-Debridement Measurements/Treatment WC - Nurse 2 - General Ulcer CM Notes Start: 12/27/22 10:54 Freq: Status: Active Protocol: Activity Type Activity Date Activity User E-sign Co-sign Detail Recorded Client Recorded Date Recorded By Document 12/27/22 11:13 [id number] 12/27/22 11:15 JAIME 12/27/22 11:13 Wound Center Nurse 2 #1 R Axilla -Time 11:13 -Correct Patient Yes -Correct Side, Site, Position Yes -Correct Procedure Yes -Procedure Performed Yes -Type of Procedure Debridement -Clinical Debridement Subcutaneous -Tissue Removed Subcutaneous -Post Debridement (cm) - Length 3.2 -Post Debridement (cm) - Width 2.2 -Post Debridement (cm) - Depth 0.1 -Total Square (Post) (cm) 7.04 -Area of Debridement (cm) - Length 3.2 -Area of Debridement (cm) - Width 2.2 -Total Square (Area) (cm) 7.04 -Tunneling No -Undermining/Tunneling No -Circular Undermining No -Wound/Ulcer Outcome Not Healed -Ulcer Cleansing Rinsed/ Irrigated with Saline -Foul Odor after Cleansing No -Bioengineered Tissue No -Bleeding Controlled with Pressure,Silver Nitrate -Treatment Response Procedure Tolerated Well -Offloading No -Debridement - Subq, 1st 20sq cm Yes Pain Scale: 0-10 Numeric Is Patient Pain Free? Yes - Nurse 3 - General Ulcer D/C NN Start: 12/27/22 10:54 Freq: Status: Active Protocol: Activity Type Activity Date Activity User E-sign Co-sign Detail Recorded Client Recorded Date Recorded By Document 12/27/22 11:15 JAIME [id number] 12/27/22 11:16 JAIME 12/27/22 11:15 Wound Care Center Nurse 3 #1 R Axilla -Ulcer Cleansing Rinsed/ Irrigated with Saline -Foul Odor after Cleansing No -Primary Dressing Applied Aquacel AG 4x4 -Other Covering abd pad -Aquacel AG 4x4 1 Pain Scale: 0-10 Numeric Is Patient Pain Free? Yes WC - Visit Discharge Discharge Condition Stable Ambulatory Status Ambulatory Transportation Private Auto Medication Reconcilliation completed & Yes provided to patient/care provider Clinical Summary of Care Provided Yes Assessment/Plan Assessment/Plan (1) Skin ulcer of axilla with fat layer exposed: CODE(S): L98.492 - Non-pressure chronic ulcer of skin of other sites with fat layer exposed (2) Right axillary hidradenitis: CODE(S): L73.2 - Hidradenitis suppurativa (3) Stiffness of right shoulder joint: CODE(S): M25.611 - Stiffness of right shoulder, not elsewhere classified PLAN: Plan Patient evaluated at the wound healing center today. Wound care - Her mother is helping with her dressing changes, she still does not feel able to to the dressing change herself. Will place slightly moistened Aquacel-Ag every other day covered by ABD. Ideally having her dressing changed daily would be more beneficial. Because she is going back to work, home health have discharged her. They taught her mom to change the dressing. I stressed to Sandra that she should be able to learn how to change her dressing herself. Ideally if she learned how to change her dressing, she could change it every day. I think more frequent dressing changes would help quicken the wound healing process. She is wearing a single layer tubigrip on her right arm for compression. Patient may shower before the dressing change and wash the wound with soap and water. Operative culture shows LONG. She completed the Linezolid. Encouraged range of motion of her right shoulder to help prevent her shoulder from getting stiff. PT has started for evaluation, range of motion and strengthening. She is tolerating the Lexapro well and states that it is helping with her anxiety. She continues to be anxious. I spoke with the patient about doing counseling/therapy to help with her anxiety and she seems receptive to it. The social sciences instructor from home health saw her last week and she gave her a list of counselors to try and get an appointment. Sandra did not want the social sciences instructor to help her make phone calls to actually schedule an appointment. Sandra has not scheduled anything. We will extend her return to work date to 01/01/23. Her job does cause her quite a bit of anxiety. Follow up one week. Call or come in sooner if have any concerns.
[2023-01-03 10:44] VITALS: BP 136/83; PULSE 73; RESP 18; TEMP 36.4; BMI 21.1
--- NOTE | 2023-01-03 12:00 | PN.PCM_ITS ---
History of Present Illness Date of Service: 01/03/23 Chief Complaint: right axilla Hidradenitis excision History of Wound: 52 year old woman presents with increasing pain and redness and swelling right axilla that started a couple months ago. She has had I&D procedures by Dr. Arita. 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 She has a history of eczema and had been on Dupixent in the past. She thinks the eczema has worsened recently since the development of her right axillary hidradenitis. She saw a Digital Marketing Consultant for the eczema. Surgery 10/05/22 - Surgical preparation right axilla with excision hidradenitis (60 cm2). She was discharged on 10/06/22 with home health to assist with the wound VAC dressing changes 3 times per week. Preliminary operative cultures positive for Staphylococcus epidermidis. Waiting for sensitivities. She is currently on Doxycycline. Wound care is Aquacel-Ag slightly moistened covered with ABD. At present, she denies fever, chills, nausea, vomiting. Progress of Wound: Right axilla ulcer is smaller in size. It is beefy pink with hypergranulation tissue present. Mariaelena wound is clear. She has started PT for ROM and strengthening of her right shoulder and she states she is able to move her shoulder better. Her return to work date to 01/01/23 but they have not let her start back. Her job does cause her quite a bit of anxiety. She is thinking about getting another job. Home health has discharged her. Her mother is helping her with her dressing changes. I have encouraged Sandra to learn how to change the dressing herself, but she still is hesitant. Ordered PT as outpatient at [facility] because it is closer to home. She has not started PT because her father has been hospitalized. Objective Data Objective Data Vital Signs: Vital Signs Temp Pulse Resp BP 97.6 F L 73 18 136/83 H 01/03/23 10:44 01/03/23 10:44 01/03/23 10:44 01/03/23 10:44 Weight: 126 lb 12.519 oz Body Mass Index (BMI) 21.1 Charges/Coding Procedures Integumentary 111xxx-113xx: 07614 Ana subq tissue 20 sq cm/< Debridement Note Debridement Note Wound debrided: Axilla wound Laterality: Right Wound Grade/Stage: Stage IV Type of Debridement: Excisional debridement Anesthesia Used: 4% Lidocaine Solution and 5% Lidocaine Gel Depth: Down to and including healthy tissue and in the subcutaneous layer Percentage of wound debrided: 100 Instrument Used: 5mm curette Tissue Removed: Devitalized tissue and slough, hypergranulation tisssue present. Severity: Fat Layer Exposed Amount of bleeding with debridement: Mild Bleeding Controlled with: Pressure, Compression and gauze and Silver Nitrate (due to the hypergranulation tissue) Patient tolerated procedure: Patient tolerated procedure well Debridement Free Text: There is hyper granulation tissue present. Post-Debridement Measurements and Additional Note: Post-Debridement Measurements/Treatment - Nurse 1 - General Ulcer Assessment Start: 12/27/22 10:54 Freq: Status: Active Protocol: JOSÉ Activity Type Activity Date Activity User E-sign Co-sign Detail Recorded Client Recorded Date Recorded By Document 12/27/22 10:56 PL [id number] 12/27/22 12:09 PL Document 01/03/23 10:44 PL [id number] 01/03/23 10:45 PL 12/27/22 01/03/23 10:56 10:44 - Today's Visit Information Type of service Follow-up Visit Follow-up Visit (Physician/CENTRAL OFFICE REPAIRER SUPERVISOR (Physician/CENTRAL OFFICE REPAIRER SUPERVISOR ) ) Arrival Mode Ambulatory Ambulatory Transfer Assistance None None Patient Identification Verified (Name & Yes Yes ) Patient Requires Transmission-Based No No Precautions Safety Precautions NA Height and Weight Body Mass Index (BMI) 21.1 21.1 BMI Classification Normal Normal Vital Signs Temperature (97.8 F-99.1 F) 97.8 F 97.6 F L Temperature Source Temporal Temporal Pulse Rate (60-100) 78 73 Respiratory Rate (12-18) 18 18 Blood Pressure (90/60-120/80) 132/75 H 136/83 H Blood Pressure Mean (mm Hg) 94 100 History Since Last Visit- (Skip if this is Patient's initial visit) Have you changed medications since your No last visit? Any new allergies or adverse reactions No Had a fall/change in ADL's that may No increase risk of falls Signs or symptoms of abuse and/or No neglect since last visit Have you been in the hospital since your No last visit? Has dressing in place as prescribed Yes Has compression in place as prescribed N/A Has offloadiing in place as prescribed N/A Pain Scale: 0-10 Numeric Is Patient Pain Free? Yes Yes NASRA - Nurse 2 - General Ulcer CM Notes Start: 12/27/22 10:54 Freq: Status: Active Protocol: Activity Type Activity Date Activity User E-sign Co-sign Detail Recorded Client Recorded Date Recorded By Document 12/27/22 11:13 [id number] 12/27/22 11:15 Document 01/03/23 11:00 [id number] 01/03/23 11:02 12/27/22 01/03/23 11:13 11:00 Wound Center Nurse 2 #1 R Axilla -Time 11:13 11:01 -Correct Patient Yes Yes -Correct Side, Site, Position Yes Yes -Correct Procedure Yes Yes -Procedure Performed Yes Yes -Type of Procedure Debridement Debridement -Clinical Debridement Subcutaneous Subcutaneous -Tissue Removed Subcutaneous Subcutaneous -Post Debridement (cm) - Length 3.2 3.6 -Post Debridement (cm) - Width 2.2 2.3 -Post Debridement (cm) - Depth 0.1 0.1 -Total Square (Post) (cm) 7.04 8.28 -Area of Debridement (cm) - Length 3.2 3.6 -Area of Debridement (cm) - Width 2.2 2.3 -Total Square (Area) (cm) 7.04 8.28 -Tunneling No No -Undermining/Tunneling No No -Circular Undermining No No -Wound/Ulcer Outcome Not Healed Not Healed -Ulcer Cleansing Rinsed/ Rinsed/ Irrigated with Irrigated with Saline Saline -Foul Odor after Cleansing No No -Bioengineered Tissue No No -Bleeding Controlled with Pressure,Silver Pressure Nitrate -Treatment Response Procedure Procedure Tolerated Well Tolerated Well -Offloading No No -Debridement - Subq, 1st 20sq cm Yes Yes Pain Scale: 0-10 Numeric Is Patient Pain Free? Yes Yes NASRA - Nurse 3 - General Ulcer D/C NN Start: 12/27/22 10:54 Freq: Status: Active Protocol: Activity Type Activity Date Activity User E-sign Co-sign Detail Recorded Client Recorded Date Recorded By Document 12/27/22 11:15 [id number] 12/27/22 11:16 Document 01/03/23 11:02 [id number] 01/03/23 11:02 12/27/22 01/03/23 11:15 11:02 Wound Care Center Nurse 3 #1 R Axilla -Ulcer Cleansing Rinsed/ Rinsed/ Irrigated with Irrigated with Saline Saline -Foul Odor after Cleansing No No -Primary Dressing Applied Aquacel AG 4x4 Aquacel AG 4x4 -Primary Dressing Covered/Secured with Dry Gauze, Secured with Tape -Other Covering abd pad -Aquacel AG 4x4 1 1 Pain Scale: 0-10 Numeric Is Patient Pain Free? Yes Yes WC - Visit Discharge Discharge Condition Stable Stable Ambulatory Status Ambulatory Ambulatory Transportation Private Auto Private Auto Medication Reconcilliation completed & Yes Yes provided to patient/care provider Clinical Summary of Care Provided Yes Yes Assessment/Plan Assessment/Plan (1) Skin ulcer of axilla with fat layer exposed: CODE(S): L98.492 - Non-pressure chronic ulcer of skin of other sites with fat layer exposed (2) Right axillary hidradenitis: CODE(S): L73.2 - Hidradenitis suppurativa (3) Stiffness of right shoulder joint: CODE(S): M25.611 - Stiffness of right shoulder, not elsewhere classified PLAN: Plan Patient evaluated at the wound healing center today. Wound care - Her mother is helping with her dressing changes, she still does not feel able to to the dressing change herself. Will place slightly moistened Aquacel-Ag every other day covered by ABD. Ideally having her dressing changed daily would be more beneficial. Home health has discharged her. They taught her mom to change the dressing. I stressed to Sandra that she should be able to learn how to change her dressing herself. Ideally if she learned how to change her dressing, she could change it every day. I think more frequent dressing changes would help quicken the wound healing process. She is wearing a single layer tubigrip on her right arm for compression. Patient may shower before the dressing change and wash the wound with soap and water. Operative culture shows LONG. She completed the Linezolid. Encouraged range of motion of her right shoulder to help prevent her shoulder from getting stiff. PT has started for evaluation, range of motion and strengthening. She is tolerating the Lexapro well and states that it is helping with her anxie ty. She continues to be anxious. I spoke with the patient about doing counseling/therapy to help with her anxiety and she seems receptive to it. The oncology social worker from home health saw her last week and she gave her a list of counselors to try and get an appointment. Sandra did not want the oncology social worker to help her make phone calls to actually schedule an appointment. Sandra has not scheduled anything. She was supposed to return to work on 01/01/23 but her job has not cleared her to return from work. Follow up one week. Call or come in sooner if have any concerns.
[2023-01-10 10:29] VITALS: BMI 21.1
--- NOTE | 2023-01-10 11:42 | PN.PCM_ITS ---
History of Present Illness Date of Service: 01/10/23 Chief Complaint: right axilla Hidradenitis excision History of Wound: 52 year old woman presents with increasing pain and redness and swelling right axilla that started a couple months ago. She has had I&D procedures by Dr. Arita. 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 She has a history of eczema and had been on Dupixent in the past. She thinks the eczema has worsened recently since the development of her right axillary hidradenitis. She saw a Sales Representative [employer] for the eczema. Surgery 10/05/22 - Surgical preparation right axilla with excision hidradenitis (60 cm2). She was discharged on 10/06/22 with home health to assist with the wound VAC dressing changes 3 times per week. Preliminary operative cultures positive for Staphylococcus epidermidis. Waiting for sensitivities. She is currently on Doxycycline. Wound care is Aquacel-Ag slightly moistened covered with ABD. At present, she denies fever, chills, nausea, vomiting. Progress of Wound: Right axilla ulcer is much smaller in size. Her and her mother have been changing it daily and it has helped immensely decrease the size of the ulcer. It is beefy pink with hypergranulation tissue present. Mariaelena wound is clear. She has started PT for ROM and strengthening of her right shoulder but home PT was stopped when home health was stopped and she has not gone to PT for further therapy. She states she is doing exercises at home, but she continues to have limited ROM of her right shoulder. She has returned to work and states she is not being treated well there. Objective Data Objective Data Vital Signs: Vital Signs Temp Pulse Resp BP 97.6 F L 73 18 136/83 H 01/03/23 10:44 01/03/23 10:44 01/03/23 10:44 01/03/23 10:44 Weight: 126 lb 12.519 oz Body Mass Index (BMI) 21.1 Charges/Coding Procedures Integumentary 111xxx-113xx: 95398 Ana subq tissue 20 sq cm/< Debridement Note Debridement Note Wound debrided: Axilla wound Laterality: Right Wound Grade/Stage: Stage IV Type of Debridement: Excisional debridement Anesthesia Used: 4% Lidocaine Solution and 5% Lidocaine Gel Depth: Down to and including healthy tissue and in the subcutaneous layer Percentage of wound debrided: 100 Instrument Used: 5mm curette Tissue Removed: Devitalized tissue and slough, hypergranulation tisssue present. Severity: Fat Layer Exposed Amount of bleeding with debridement: Mild Bleeding Controlled with: Pressure and Compression and gauze Patient tolerated procedure: Patient tolerated procedure well Debridement Free Text: There is hyper granulation tissue present. Post-Debridement Measurements and Additional Note: Post-Debridement Measurements/Treatment - Nurse 1 - General Ulcer Assessment Start: 12/27/22 10:54 Freq: Status: Active Protocol: JOSÉ Activity Type Activity Date Activity User E-sign Co-sign Detail Recorded Client Recorded Date Recorded By Document 12/27/22 10:56 PL [id number] 12/27/22 12:09 PL Document 01/03/23 10:44 PL [id number] 01/03/23 10:45 PL Document 01/10/23 10:29 [id number] 01/10/23 10:30 12/27/22 01/03/23 01/10/23 10:56 10:44 10:29 - Today's Visit Information Type of service Follow-up Visit Follow-up Visit Follow-up Visit (Physician/LITHOGRAPHIC ETCHER (Physician/LITHOGRAPHIC ETCHER (Physician/LITHOGRAPHIC ETCHER ) ) ) Arrival Mode Ambulatory Ambulatory Ambulatory Transfer Assistance None None Patient Identification Verified (Name & Yes Yes Yes ) Patient Requires Transmission-Based No No No Precautions Safety Precautions NA Height and Weight Body Mass Index (BMI) 21.1 21.1 21.1 BMI Classification Normal Normal Normal Vital Signs Temperature (97.8 F-99.1 F) 97.8 F 97.6 F L Temperature Source Temporal Temporal Pulse Rate (60-100) 78 73 Respiratory Rate (12-18) 18 18 Blood Pressure (90/60-120/80) 132/75 H 136/83 H Blood Pressure Mean (mm Hg) 94 100 History Since Last Visit- (Skip if this is Patient's initial visit) Have you changed medications since your No No last visit? Any new allergies or adverse reactions No No Had a fall/change in ADL's that may No No increase risk of falls Signs or symptoms of abuse and/or No No neglect since last visit Have you been in the hospital since your No No last visit? Has dressing in place as prescribed Yes Yes Has compression in place as prescribed N/A N/A Has offloadiing in place as prescribed N/A N/A Experienced any changes in pain level or No management Left Footwear Regular Shoe Right Footwear Regular Shoe Pain Scale: 0-10 Numeric Is Patient Pain Free? Yes Yes Yes - Nurse 1 - General Ulcer Measurement Start: 12/27/22 10:54 Freq: Status: Active Protocol: Activity Type Activity Date Activity User E-sign Co-sign Detail Recorded Client Recorded Date Recorded By Document 01/10/23 10:29 [id number] 01/10/23 10:30 01/10/23 10:29 Wound Center Nurse 1 #1 R Axilla -Combined with other wound No -Current Size (cm) - Length 2.4 -Current Size (cm) - Width 1.0 -Current Size (cm) - Depth 0.1 -Total Square Cm 2.40 -Photo Taken No -Epithelialization Medium 34-66% -Tunneling No -Undermining/Tunneling No -Circular Undermining No -Exudate Amt Medium -Exudate Type Serosanguineous -Wound Margin Flat & Intact -Granulation Amt Large (67-100%) -Granulation Quality Red -Slough/Fibrin Yes -Necrosis Amt Small (1-33%) -Necrotic Tissue Type Adherent Slough -Structure Exposed N/A -Texture (Mariaelena-wound Skin Appearance) Assessed -Moisture (Mariaelena-wound Skin Appearance) Assessed,Dry/ Scaly -Color (Mariaelena-wound Skin Appearance) Assessed -Temperature (Mariaelena-wound Skin No Abnormality Appearance) (Pt Warm) -Tenderness on Palpation (Mariaelena-wound No Skin Appearance) -Ulcer Cleansing Rinsed/ Irrigated with Saline -Foul Odor after Cleansing No -Anesthetic Used 4% Lidocaine Solution Lower Limb Edema Present NA - Nurse 2 - General Ulcer CM Notes Start: 12/27/22 10:54 Freq: Status: Active Protocol: Activity Type Activity Date Activity User E-sign Co-sign Detail Recorded Client Recorded Date Recorded By Document 12/27/22 11:13 [id number] 12/27/22 11:15 Document 01/03/23 11:00 [id number] 01/03/23 11:02 Document 01/10/23 10:27 [id number] 01/10/23 10:28 12/27/22 01/03/23 01/10/23 11:13 11:00 10:27 Wound Center Nurse 2 #1 R Axilla -Time 11:13 11:01 10:28 -Correct Patient Yes Yes Yes -Correct Side, Site, Position Yes Yes Yes -Correct Procedure Yes Yes Yes -Procedure Performed Yes Yes Yes -Type of Procedure Debridement Debridement Debridement -Clinical Debridement Subcutaneous Subcutaneous Subcutaneous -Tissue Removed Subcutaneous Subcutaneous Subcutaneous -Post Debridement (cm) - Length 3.2 3.6 2.5 -Post Debridement (cm) - Width 2.2 2.3 1.4 -Post Debridement (cm) - Depth 0.1 0.1 0.1 -Total Square (Post) (cm) 7.04 8.28 3.50 -Area of Debridement (cm) - Length 3.2 3.6 2.5 -Area of Debridement (cm) - Width 2.2 2.3 1.4 -Total Square (Area) (cm) 7.04 8.28 3.50 -Tunneling No No No -Undermining/Tunneling No No No -Circular Undermining No No No -Wound/Ulcer Outcome Not Healed Not Healed Not Healed -Ulcer Cleansing Rinsed/ Rinsed/ Rinsed/ Irrigated with Irrigated with Irrigated with Saline Saline Saline -Foul Odor after Cleansing No No No -Bioengineered Tissue No No No -Bleeding Controlled with Pressure,Silver Pressure Pressure Nitrate -Treatment Response Procedure Procedure Procedure Tolerated Well Tolerated Well Tolerated Well -Offloading No No No -Debridement - Subq, 1st 20sq cm Yes Yes Yes Pain Scale: 0-10 Numeric Is Patient Pain Free? Yes Yes Yes - Nurse 3 - General Ulcer D/C NN Start: 12/27/22 10:54 Freq: Status: Active Protocol: Activity Type Activity Date Activity User E-sign Co-sign Detail Recorded Client Recorded Date Recorded By Document 12/27/22 11:15 [id number] 12/27/22 11:16 Document 01/03/23 11:02 [id number] 01/03/23 11:02 Document 01/10/23 10:40 PL [id number] 01/10/23 10:41 PL 12/27/22 01/03/23 01/10/23 11:15 11:02 10:40 Wound Care Center Nurse 3 #1 R Axilla -Ulcer Cleansing Rinsed/ Rinsed/ Rinsed/ Irrigated with Irrigated with Irrigated with Saline Saline Saline -Foul Odor after Cleansing No No No -Primary Dressing Applied Aquacel AG 4x4 Aquacel AG 4x4 Aquacel AG 4x4 -Other Dressing Abd -Primary Dressing Covered/Secured with Dry Gauze, Secured with Secured with Tape Tape -Other Covering abd pad -Aquacel AG 4x4 1 1 1 Pain Scale: 0-10 Numeric Is Patient Pain Free? Yes Yes Yes WC - Visit Discharge Discharge Condition Stable Stable Stable Ambulatory Status Ambulatory Ambulatory Ambulatory Transportation Private Auto Private Auto Private Auto Medication Reconcilliation completed & Yes Yes provided to patient/care provider Clinical Summary of Care Provided Yes Yes Assessment/Plan Assessment/Plan (1) Skin ulcer of axilla with fat layer exposed: CODE(S): L98.492 - Non-pressure chronic ulcer of skin of other sites with fat layer exposed (2) Right axillary hidradenitis: CODE(S): L73.2 - Hidradenitis suppurativa (3) Stiffness of right shoulder joint: CODE(S): M25.611 - Stiffness of right shoulder, not elsewhere classified PLAN: Plan Patient evaluated at the wound healing center today. Wound care - Her mother is helping with her dressing changes, she still does not feel able to to the dressing change herself. Will place slightly moistened Aquacel-Ag every day covered by ABD/gauze. She is wearing a single layer tubigrip on her right arm for compression. Patient may shower before the dressing change and wash the wound with soap and water. Operative culture shows MRSNicole. She completed the Linezolid. Encouraged range of motion of her right shoulder to help prevent her shoulder from getting stiff. PT has started for evaluation, range of motion and strengthening. She is tolerating the Lexapro well and states that it is helping with her anxiety. She continues to be anxious. I spoke with the patient about doing counseling/therapy to help with her anxiety and she seems receptive to it. The social media designer from home health saw her last week and she gave her a list of counselors to try and get an appointment. Sandra did not want the social media designer to help her make phone calls to actually schedule an appointment. Sandra has not scheduled anything. She has returned to work. She states that she is able to do her job although management is mean to her. Follow up one week. Call or come in sooner if have any concerns.
[2023-01-17 10:25] VITALS: BP 141/75; PULSE 66; RESP 16; TEMP 36.1; BMI 21.1
--- NOTE | 2023-01-17 11:19 | PCM.WC.PN ---
History of Present Illness Date of Service: 01/17/23 Chief Complaint: right axilla Hidradenitis excision History of Wound: 52 year old woman presents with increasing pain and redness and swelling right axilla that started a couple months ago. She has had I&D procedures by Dr. Arita. 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 She has a history of eczema and had been on Dupixent in the past. She thinks the eczema has worsened recently since the development of her right axillary hidradenitis. She saw a Bus Inspector for the eczema. Surgery 10/05/22 - Surgical preparation right axilla with excision hidradenitis (60 cm2). She was discharged on 10/06/22 with home health to assist with the wound VAC dressing changes 3 times per week. Preliminary operative cultures positive for Staphylococcus epidermidis. Waiting for sensitivities. She is currently on Doxycycline. Wound care is Aquacel-Ag slightly moistened covered with ABD. At present, she denies fever, chills, nausea, vomiting. Progress of Wound: Right axilla ulcer is much smaller in size. Her and her mother have been changing it daily and it has helped immensely decrease the size of the ulcer. It is beefy pink with hypergranulation tissue present. Mariaelena wound is clear. She has started PT for ROM and strengthening of her right shoulder but home PT was stopped when home health was stopped and she has not gone to PT for further therapy. She states she is doing exercises at home, but she continues to have limited ROM of her right shoulder. She has returned to work and is able to do her job. Objective Data Objective Data Vital Signs: Vital Signs Temp Pulse Resp BP O2 Del Method 97 F L 66 16 141/75 H Room Air 01/17/23 10:25 01/17/23 10:25 01/17/23 10:25 01/17/23 10:25 01/17/23 10:25 Oxygen Delivery Method Room Air Weight: 126 lb 12.519 oz Body Mass Index (BMI) 21.1 Charges/Coding Procedures Integumentary 111xxx-113xx: 59796 Ana subq tissue 20 sq cm/< Debridement Note Debridement Note Wound debrided: Axilla wound Laterality: Right Wound Grade/Stage: Stage IV Type of Debridement: Excisional debridement Anesthesia Used: 4% Lidocaine Solution and 5% Lidocaine Gel Depth: Down to and including healthy tissue and in the subcutaneous layer Percentage of wound debrided: 100 Instrument Used: 5mm curette Tissue Removed: Devitalized tissue and slough, hypergranulation tisssue present. Severity: Fat Layer Exposed Amount of bleeding with debridement: Mild Bleeding Controlled with: Pressure and Compression and gauze Patient tolerated procedure: Patient tolerated procedure well Debridement Free Text: There is hyper granulation tissue present. Post-Debridement Measurements and Additional Note: Post-Debridement Measurements/Treatment - Nurse 1 - General Ulcer Assessment Start: 12/27/22 10:54 Freq: Status: Active Protocol: JOSÉ Activity Type Activity Date Activity User E-sign Co-sign Detail Recorded Client Recorded Date Recorded By Document 12/27/22 10:56 PL [id number] 12/27/22 12:09 PL Document 01/03/23 10:44 PL [id number] 01/03/23 10:45 PL Document 01/10/23 10:29 [id number] 01/10/23 10:30 Document 01/17/23 10:25 [facility] [id number] 01/17/23 10:33 BM 12/27/22 01/03/23 01/10/23 10:56 10:44 10:29 - Today's Visit Information Type of service Follow-up Visit Follow-up Visit Follow-up Visit (Physician/BEVEL OPERATOR (Physician/BEVEL OPERATOR (Physician/BEVEL OPERATOR ) ) ) Arrival Mode Ambulatory Ambulatory Ambulatory Transfer Assistance None None Patient Identification Verified (Name & Yes Yes Yes ) Patient Requires Transmission-Based No No No Precautions Safety Precautions NA Height and Weight Body Mass Index (BMI) 21.1 21.1 21.1 BMI Classification Normal Normal Normal Vital Signs Temperature (97.8 F-99.1 F) 97.8 F 97.6 F L Temperature Source Temporal Temporal Pulse Rate (60-100) 78 73 Pulse Location Respiratory Rate (12-18) 18 18 Respiratory rate source Oxygen Delivery Method Blood Pressure (90/60-120/80) 132/75 H 136/83 H Blood Pressure Mean (mm Hg) 94 100 Source Position Blood Pressure Location History Since Last Visit- (Skip if this is Patient's initial visit) Have you changed medications since your No No last visit? Any new allergies or adverse reactions No No Had a fall/change in ADL's that may No No increase risk of falls Signs or symptoms of abuse and/or No No neglect since last visit Have you been in the hospital since your No No last visit? Has dressing in place as prescribed Yes Yes Has compression in place as prescribed N/A N/A Has offloadiing in place as prescribed N/A N/A Experienced any changes in pain level or No management Left Footwear Regular Shoe Right Footwear Regular Shoe Pain Scale: 0-10 Numeric Is Patient Pain Free? Yes Yes Yes 01/17/23 10:25 - Today's Visit Information Type of service Follow-up Visit (Physician/BEVEL OPERATOR ) Arrival Mode Ambulatory Transfer Assistance None Patient Identification Verified (Name & Yes ) Patient Requires Transmission-Based No Precautions Safety Precautions Height and Weight Body Mass Index (BMI) 21.1 BMI Classification Normal Vital Signs Temperature (97.8 F-99.1 F) 97 F L Temperature Source Temporal Pulse Rate (60-100) 66 Pulse Location Monitor Respiratory Rate (12-18) 16 Respiratory rate source Observation Oxygen Delivery Method Room Air Blood Pressure (90/60-120/80) 141/75 H Blood Pressure Mean (mm Hg) 97 Source Monitor Position Sitting Blood Pressure Location Right Arm History Since Last Visit- (Skip if this is Patient's initial visit) Have you changed medications since your No last visit? Any new allergies or adverse reactions No Had a fall/change in ADL's that may No increase risk of falls Signs or symptoms of abuse and/or No neglect since last visit Have you been in the hospital since your No last visit? Has dressing in place as prescribed Yes Has compression in place as prescribed N/A Has offloadiing in place as prescribed N/A Experienced any changes in pain level or No management Left Footwear Regular Shoe Right Footwear Regular Shoe Pain Scale: 0-10 Numeric Is Patient Pain Free? Yes - Nurse 1 - General Ulcer Measurement Start: 12/27/22 10:54 Freq: Status: Active Protocol: Activity Type Activity Date Activity User E-sign Co-sign Detail Recorded Client Recorded Date Recorded By Document 01/10/23 10:29 [id number] 01/10/23 10:30 Document 01/17/23 10:25 [facility] [id number] 01/17/23 10:33 BMF 01/10/23 01/17/23 10:29 10:25 Wound Center Nurse 1 #1 R Axilla -Combined with other wound No No -Current Size (cm) - Length 2.4 -Current Size (cm) - Width 1.0 -Current Size (cm) - Depth 0.1 -Total Square Cm 2.40 -Photo Taken No -Epithelialization Medium 34-66% Small 1-33% -Tunneling No No -Undermining/Tunneling No No -Circular Undermining No No -Exudate Amt Medium Medium -Exudate Type Serosanguineous Serosanguineous -Wound Margin Flat & Intact Flat & Intact -Granulation Amt Large (67-100%) Large (67-100%) -Granulation Quality Red Red -Slough/Fibrin Yes No -Necrosis Amt Small (1-33%) None Present (0 %) -Necrotic Tissue Type Adherent Slough -Structure Exposed N/A -Texture (Mariaelena-wound Skin Appearance) Assessed Assessed, Scarring -Moisture (Mariaelena-wound Skin Appearance) Assessed,Dry/ Assessed Scaly -Color (Mariaelena-wound Skin Appearance) Assessed Assessed -Temperature (Mariaelena-wound Skin No Abnormality No Abnormality Appearance) (Pt Warm) (Pt Warm) -Tenderness on Palpation (Mariaelena-wound No No Skin Appearance) -Ulcer Cleansing Rinsed/ Soap and Water Irrigated with Saline -Foul Odor after Cleansing No No -Anesthetic Used 4% Lidocaine 5% Lidocaine Solution Gel -Wound Comment(s) ENVELOPE MACHINE OPERATOR TO [place] TODAY. Lower Limb Edema Present NA WC - Nurse 2 - General Ulcer CM Notes Start: 12/27/22 10:54 Freq: Status: Active Protocol: Activity Type Activity Date Activity User E-sign Co-sign Detail Recorded Client Recorded Date Recorded By Document 12/27/22 11:13 [id number] 12/27/22 11:15 Document 01/03/23 11:00 [id number] 01/03/23 11:02 Document 01/10/23 10:27 [id number] 01/10/23 10:28 12/27/22 01/03/23 01/10/23 11:13 11:00 10:27 Wound Center Nurse 2 #1 R Axilla -Time 11:13 11:01 10:28 -Correct Patient Yes Yes Yes -Correct Side, Site, Position Yes Yes Yes -Correct Procedure Yes Yes Yes -Procedure Performed Yes Yes Yes -Type of Procedure Debridement Debridement Debridement -Clinical Debridement Subcutaneous Subcutaneous Subcutaneous -Tissue Removed Subcutaneous Subcutaneous Subcutaneous -Post Debridement (cm) - Length 3.2 3.6 2.5 -Post Debridement (cm) - Width 2.2 2.3 1.4 -Post Debridement (cm) - Depth 0.1 0.1 0.1 -Total Square (Post) (cm) 7.04 8.28 3.50 -Area of Debridement (cm) - Length 3.2 3.6 2.5 -Area of Debridement (cm) - Width 2.2 2.3 1.4 -Total Square (Area) (cm) 7.04 8.28 3.50 -Tunneling No No No -Undermining/Tunneling No No No -Circular Undermining No No No -Wound/Ulcer Outcome Not Healed Not Healed Not Healed -Ulcer Cleansing Rinsed/ Rinsed/ Rinsed/ Irrigated with Irrigated with Irrigated with Saline Saline Saline -Foul Odor after Cleansing No No No -Bioengineered Tissue No No No -Bleeding Controlled with Pressure,Silver Pressure Pressure Nitrate -Treatment Response Procedure Procedure Procedure Tolerated Well Tolerated Well Tolerated Well -Offloading No No No -Debridement - Subq, 1st 20sq cm Yes Yes Yes Pain Scale: 0-10 Numeric Is Patient Pain Free? Yes Yes Yes - Nurse 3 - General Ulcer D/C NN Start: 12/27/22 10:54 Freq: Status: Active Protocol: Activity Type Activity Date Activity User E-sign Co-sign Detail Recorded Client Recorded Date Recorded By Document 12/27/22 11:15 [id number] 12/27/22 11:16 Document 01/03/23 11:02 [id number] 01/03/23 11:02 Document 01/10/23 10:40 PL [id number] 01/10/23 10:41 PL 12/27/22 01/03/23 01/10/23 11:15 11:02 10:40 Wound Care Center Nurse 3 #1 R Axilla -Ulcer Cleansing Rinsed/ Rinsed/ Rinsed/ Irrigated with Irrigated with Irrigated with Saline Saline Saline -Foul Odor after Cleansing No No No -Primary Dressing Applied Aquacel AG 4x4 Aquacel AG 4x4 Aquacel AG 4x4 -Other Dressing Abd -Primary Dressing Covered/Secured with Dry Gauze, Secured with Secured with Tape Tape -Other Covering abd pad -Aquacel AG 4x4 1 1 1 Pain Scale: 0-10 Numeric Is Patient Pain Free? Yes Yes Yes WC - Visit Discharge Discharge Condition Stable Stable Stable Ambulatory Status Ambulatory Ambulatory Ambulatory Transportation Private Auto Private Auto Private Auto Medication Reconcilliation completed & Yes Yes provided to patient/care provider Clinical Summary of Care Provided Yes Yes Assessment/Plan Assessment/Plan (1) Skin ulcer of axilla with fat layer exposed: CODE(S): L98.492 - Non-pressure chronic ulcer of skin of other sites with fat layer exposed (2) Right axillary hidradenitis: CODE(S): L73.2 - Hidradenitis suppurativa (3) Stiffness of right shoulder joint: CODE(S): M25.611 - Stiffness of right shoulder, not elsewhere classified PLAN: Plan Patient evaluated at the wound healing center today. Wound care - Her mother is helping with her dressing changes, she still does not feel able to to the dressing change herself. Will place slightly moistened Aquacel-Ag every day covered by ABD/gauze. She is wearing a single layer tubigrip on her right arm for compression. Patient may shower before the dressing change and wash the wound with soap and water. Operative culture shows LONG. She completed the Linezolid. Encouraged range of motion of her right shoulder to help prevent her shoulder from getting stiff. Instructed her to call about her outpatient PT (through [facility], per her choice) [facility] She continues to have decreased shoulder ROM. She is tolerating the Lexapro well and states that it is helping with her anxiety. She continues to be anxious. I spoke with the patient about doing counseling/therapy to help with her anxiety and she seems receptive to it. The school social worker from [facility] saw her last week and she gave her a list of counselors to try and get an appointment. Sandra did not want the school social worker to help her make phone calls to actually schedule an appointment. Sandra has not scheduled anything. She has returned to work. She states that she is able to do her job. Follow up one week. Call or come in sooner if have any concerns.
== END 2023-01-22 23:59 | disposition home or self-care (01) ==
LOC: WC 10:30
PROVIDERS: PCP Nurse Practitioner Family; Referring Provider Nurse Practitioner Family; Visit Provider Nurse Practitioner Family
DX: L98.492 Non-pressure chronic ulcer of skin of other sites with fat layer exposed (principal); L30.9 Dermatitis, unspecified; L73.2 Hidradenitis suppurativa; M25.611 Stiffness of right shoulder, not elsewhere classified; F41.9 Anxiety disorder, unspecified; Z79.899 Other long term (current) drug therapy
CPT/HCPCS: 11042

== ENCOUNTER 2023-02-21 09:45 | Outpatient (RCR) | payer OTHER, SELFPAY ==
[2023-01-23 00:19] VITALS: BP 141/75; PULSE 66; RESP 16; TEMP 36.1; BMI 21.1
[2023-01-24 09:36] VITALS: BP 152/66; PULSE 67; RESP 16; BMI 21.1
--- NOTE | 2023-01-24 09:57 | PCM.WC.PN ---
History of Present Illness Date of Service: 01/24/23 Chief Complaint: right axilla Hidradenitis excision History of Wound: 52 year old woman presents with increasing pain and redness and swelling right axilla that started a couple months ago. She has had I&D procedures by Dr. Arita. She works in Housekeeping at [employer] and states she may be allergic to the chemicals used for cleaning. She has a history of eczema and had been on Dupixent in the past. She thinks the eczema has worsened recently since the development of her right axillary hidradenitis. She saw a Frame Wirer for the eczema. Surgery 10/05/22 - Surgical preparation right axilla with excision hidradenitis (60 cm2). She was discharged on 10/06/22 with home health to assist with the wound VAC dressing changes 3 times per week. Preliminary operative cultures positive for Staphylococcus epidermidis. Waiting for sensitivities. She is currently on Doxycycline. Wound care is Aquacel-Ag slightly moistened covered with ABD. At present, she denies fever, chills, nausea, vomiting. Progress of Wound: Right axilla ulcer is smaller in size. Her and her mother have been changing it daily and it has helped decrease the size of the ulcer. It is beefy pink with hypergranulation tissue present. Mariaelena wound is clear. She has started PT for ROM and strengthening of her right shoulder but home PT was stopped when home health was stopped and she start next week PT at [facility]. She states she is doing exercises at home, but she continues to have limited ROM of her right shoulder. She has returned to work and is able to do her job. Objective Data Objective Data Vital Signs: Vital Signs Temp Pulse Resp BP O2 Del Method 97 F L 67 16 152/66 H Room Air 01/23/23 00:19 01/24/23 09:36 01/24/23 09:36 01/24/23 09:36 01/24/23 09:36 Oxygen Delivery Method Room Air Weight: 126 lb 12.519 oz Body Mass Index (BMI) 21.1 Debridement Note Debridement Note Wound debrided: Axilla wound Laterality: Right Wound Grade/Stage: Stage IV Type of Debridement: Excisional debridement Anesthesia Used: 4% Lidocaine Solution and 5% Lidocaine Gel Depth: Down to and including healthy tissue and in the subcutaneous layer Percentage of wound debrided: 100 Instrument Used: 3mm curette Tissue Removed: Devitalized tissue and slough, hypergranulation tisssue present. Severity: Fat Layer Exposed Amount of bleeding with debridement: Mild Bleeding Controlled with: Pressure and Compression and gauze Patient tolerated procedure: Patient tolerated procedure well Debridement Free Text: There is hyper granulation tissue present. Post-Debridement Measurements and Additional Note: Post-Debridement Measurements/Treatment - Nurse 1 - General Ulcer Assessment Start: 01/24/23 09:35 Freq: Status: Active Protocol: JOSÉ Activity Type Activity Date Activity User E-sign Co-sign Detail Recorded Client Recorded Date Recorded By Document 01/24/23 09:36 [facility] [id number] 01/24/23 09:41 [facility] 01/24/23 09:36 WC - Today's Visit Information Type of service Follow-up Visit (Physician/DEVELOPER ANALYST ) Arrival Mode Ambulatory Transfer Assistance None Patient Identification Verified (Name & Yes ) Patient Requires Transmission-Based No Precautions Height and Weight Body Mass Index (BMI) 21.1 BMI Classification Normal Vital Signs Pulse Rate (60-100) 67 Pulse Location Monitor Respiratory Rate (12-18) 16 Respiratory rate source Observation Oxygen Delivery Method Room Air Blood Pressure (90/60-120/80) 152/66 H Blood Pressure Mean (mm Hg) 94 Source Monitor Position Sitting Blood Pressure Location Left Arm History Since Last Visit- (Skip if this is Patient's initial visit) Have you changed medications since your No last visit? Any new allergies or adverse reactions No Had a fall/change in ADL's that may No increase risk of falls Signs or symptoms of abuse and/or No neglect since last visit Have you been in the hospital since your No last visit? Has dressing in place as prescribed Yes Has compression in place as prescribed N/A Has offloadiing in place as prescribed N/A Experienced any changes in pain level or No management Left Footwear Regular Shoe Right Footwear Regular Shoe Pain Scale: 0-10 Numeric Is Patient Pain Free? Yes - Nurse 1 - General Ulcer Measurement Start: 01/24/23 09:35 Freq: Status: Active Protocol: Activity Type Activity Date Activity User E-sign Co-sign Detail Recorded Client Recorded Date Recorded By Document 01/24/23 09:36 [facility] [id number] 01/24/23 09:41 [facility] 01/24/23 09:36 Wound Center Nurse 1 #1 R Axilla -Combined with other wound No -Current Size (cm) - Length 0.9 -Current Size (cm) - Width 1.2 -Current Size (cm) - Depth 0.1 -Total Square Cm 1.08 -Date of Last Picture (Recall this 01/24/23 field) -Photo Taken Yes -Epithelialization Small 1-33% -Tunneling No -Undermining/Tunneling No -Circular Undermining No -Exudate Amt Medium -Exudate Type Serosanguineous -Wound Margin Distinct, Outline Attached -Granulation Amt Large (67-100%) -Granulation Quality Hyper- granulation,Red -Slough/Fibrin No -Necrosis Amt None Present (0 %) -Texture (Mariaelena-wound Skin Appearance) Assessed, Scarring -Moisture (Mariaelena-wound Skin Appearance) Assessed -Color (Mariaelena-wound Skin Appearance) Assessed -Temperature (Mariaelena-wound Skin No Abnormality Appearance) (Pt Warm) -Tenderness on Palpation (Mariaelena-wound No Skin Appearance) -Ulcer Cleansing Rinsed/ Irrigated with Saline -Foul Odor after Cleansing No -Anesthetic Used 5% Lidocaine Gel Assessment/Plan Assessment/Plan (1) Skin ulcer of axilla with fat layer exposed: CODE(S): L98.492 - Non-pressure chronic ulcer of skin of other sites with fat layer exposed (2) Right axillary hidradenitis: CODE(S): L73.2 - Hidradenitis suppurativa (3) Stiffness of right shoulder joint: CODE(S): M25.611 - Stiffness of right shoulder, not elsewhere classified PLAN: Plan Patient evaluated at the wound healing center today. Wound care - Her mother is helping with her dressing changes, she still does not feel able to to the dressing change herself. Will place slightly moistened Aquacel-Ag every day covered by ABD/gauze. She is wearing a single layer tubigrip on her right arm for compression. Patient may shower before the dressing change and wash the wound with soap and water. Operative culture shows LONG. She completed the Linezolid. Encouraged range of motion of her right shoulder to help prevent her shoulder from getting stiff. She starts next week for her PT at [facility]. She continues to have decreased shoulder ROM. She is tolerating the Lexapro well and states that it is helping with her anxiety. She continues to be anxious. I spoke with the patient about doing counseling/therapy to help with her anxiety and she seems receptive to it. The home health care social worker from home health saw her last month and she gave her a list of counselors to try and get an appointment. Sandra did not want the home health care social worker to help her make phone calls to actually schedule an appointment. Sandra has not scheduled anything. She has returned to work. She states that she is able to do her job. Follow up one week. Call or come in sooner if have any concerns.
[2023-01-31 09:42] VITALS: BP 129/82; PULSE 74; RESP 16; TEMP 36.3; BMI 21.1
--- NOTE | 2023-01-31 11:12 | PCM.WC.PN ---
History of Present Illness Date of Service: 01/31/23 Chief Complaint: right axilla Hidradenitis excision History of Wound: 52 year old woman presents with increasing pain and redness and swelling right axilla that started a couple months ago. She has had I&D procedures by Dr. Arita. 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 She has a history of eczema and had been on Dupixent in the past. She thinks the eczema has worsened recently since the development of her right axillary hidradenitis. She saw a Annealing Operator for the eczema. Surgery 10/05/22 - Surgical preparation right axilla with excision hidradenitis (60 cm2). She was discharged on 10/06/22 with home health to assist with the wound VAC dressing changes 3 times per week. Preliminary operative cultures positive for Staphylococcus epidermidis. Waiting for sensitivities. She is currently on Doxycycline. Wound care is Aquacel-Ag slightly moistened covered with gauze. At present, she denies fever, chills, nausea, vomiting. Progress of Wound: Right axilla ulcer is half the size compared to last week. Her and her mother have been changing it daily and it has helped decrease the size of the ulcer. It has a beefy pink wound bed. Her mariaelena wound is slightly excoriated from the tape she has been using. She restarted PT yesterday at [facility] and states she is doing her home exercises. She is back to work and doing ok at her job. Objective Data Objective Data Vital Signs: Vital Signs Temp Pulse Resp BP O2 Del Method 97.3 F L 74 16 129/82 H Room Air 01/31/23 09:42 01/31/23 09:42 01/31/23 09:42 01/31/23 09:42 01/31/23 09:42 Oxygen Delivery Method Room Air Weight: 126 lb 12.519 oz Body Mass Index (BMI) 21.1 Charges/Coding Procedures Integumentary 111xxx-113xx: 52192 Ana subq tissue 20 sq cm/< Debridement Note Debridement Note Wound debrided: Axilla wound Laterality: Right Wound Grade/Stage: Stage IV Type of Debridement: Excisional debridement Anesthesia Used: 4% Lidocaine Solution and 5% Lidocaine Gel Depth: Down to and including healthy tissue and in the subcutaneous layer Percentage of wound debrided: 100 Instrument Used: 3mm curette Tissue Removed: Devitalized tissue and slough. Severity: Fat Layer Exposed Amount of bleeding with debridement: Mild Bleeding Controlled with: Pressure and Compression and gauze Patient tolerated procedure: Patient tolerated procedure well Debridement Free Text: Post-Debridement Measurements and Additional Note: Post-Debridement Measurements/Treatment - Nurse 1 - General Ulcer Assessment Start: 01/24/23 09:35 Freq: Status: Active Protocol: JOSÉ Activity Type Activity Date Activity User E-sign Co-sign Detail Recorded Client Recorded Date Recorded By Document 01/24/23 09:36 [facility] [id number] 01/24/23 09:41 [facility] Document 01/31/23 09:42 [facility] [id number] 01/31/23 09:47 [facility] 01/24/23 01/31/23 09:36 09:42 - Today's Visit Information Type of service Follow-up Visit Follow-up Visit (Physician/BOILER OUT (Physician/BOILER OUT ) ) Arrival Mode Ambulatory Ambulatory Transfer Assistance None None Patient Identification Verified (Name & Yes Yes ) Patient Requires Transmission-Based No No Precautions Height and Weight Body Mass Index (BMI) 21.1 21.1 BMI Classification Normal Normal Vital Signs Temperature (97.8 F-99.1 F) 97.3 F L Temperature Source Temporal Pulse Rate (60-100) 67 74 Pulse Location Monitor Monitor Respiratory Rate (12-18) 16 16 Respiratory rate source Observation Observation Oxygen Delivery Method Room Air Room Air Blood Pressure (90/60-120/80) 152/66 H 129/82 H Blood Pressure Mean (mm Hg) 94 97 Source Monitor Monitor Position Sitting Sitting Blood Pressure Location Left Arm Left Arm History Since Last Visit- (Skip if this is Patient's initial visit) Have you changed medications since your No No last visit? Any new allergies or adverse reactions No No Had a fall/change in ADL's that may No No increase risk of falls Signs or symptoms of abuse and/or No No neglect since last visit Have you been in the hospital since your No No last visit? Has dressing in place as prescribed Yes Yes Has compression in place as prescribed N/A N/A Has offloadiing in place as prescribed N/A N/A Experienced any changes in pain level or No No management Left Footwear Regular Shoe Regular Shoe Right Footwear Regular Shoe Regular Shoe Pain Scale: 0-10 Numeric Is Patient Pain Free? Yes Yes - Nurse 1 - General Ulcer Measurement Start: 01/24/23 09:35 Freq: Status: Active Protocol: Activity Type Activity Date Activity User E-sign Co-sign Detail Recorded Client Recorded Date Recorded By Document 01/24/23 09:36 [facility] [id number] 01/24/23 09:41 BM Document 01/31/23 09:42 [facility] [id number] 01/31/23 09:47 BM 01/24/23 01/31/23 09:36 09:42 Wound Center Nurse 1 #1 R Axilla -Combined with other wound No No -Current Size (cm) - Length 0.9 0.9 -Current Size (cm) - Width 1.2 0.9 -Current Size (cm) - Depth 0.1 0.1 -Total Square Cm 1.08 0.81 -Date of Last Picture (Recall this 01/24/23 01/31/23 field) -Photo Taken Yes Yes -Epithelialization Small 1-33% Small 1-33% -Tunneling No No -Undermining/Tunneling No No -Circular Undermining No No -Exudate Amt Medium Small -Exudate Type Serosanguineous Serosanguineous -Wound Margin Distinct, Distinct, Outline Outline Attached Attached -Granulation Amt Large (67-100%) Medium (34-66%) -Granulation Quality Hyper- Red granulation,Red -Slough/Fibrin No Yes -Necrosis Amt None Present (0 Medium (34-66%) %) -Necrotic Tissue Type Eschar -Texture (Mariaelena-wound Skin Appearance) Assessed, Assessed, Scarring Scarring -Moisture (Mariaelena-wound Skin Appearance) Assessed Assessed,Dry/ Scaly -Color (Mariaelena-wound Skin Appearance) Assessed Assessed -Temperature (Mariaelena-wound Skin No Abnormality No Abnormality Appearance) (Pt Warm) (Pt Warm) -Tenderness on Palpation (Mariaelena-wound No No Skin Appearance) -Ulcer Cleansing Rinsed/ Rinsed/ Irrigated with Irrigated with Saline Saline -Foul Odor after Cleansing No No -Anesthetic Used 5% Lidocaine 5% Lidocaine Gel Gel WC - Nurse 2 - General Ulcer CM Notes Start: 01/24/23 09:35 Freq: Status: Active Protocol: Activity Type Activity Date Activity User E-sign Co-sign Detail Recorded Client Recorded Date Recorded By Document 01/24/23 11:37 PL [id number] 01/24/23 11:38 Document 01/31/23 09:56 [id number] 01/31/23 10:01 01/24/23 01/31/23 11:37 09:56 Wound Center Nurse 2 #1 R Axilla -Time 09:44 09:56 -Correct Patient Yes Yes -Correct Side, Site, Position Yes Yes -Correct Procedure Yes Yes -Procedure Performed Yes Yes -Type of Procedure Debridement Debridement -Clinical Debridement Subcutaneous Subcutaneous -Tissue Removed Subcutaneous Subcutaneous -Post Debridement (cm) - Length 1.5 0.7 -Post Debridement (cm) - Width 1.4 0.7 -Post Debridement (cm) - Depth 0.1 0.1 -Total Square (Post) (cm) 2.10 0.49 -Area of Debridement (cm) - Length 1.5 0.7 -Area of Debridement (cm) - Width 1.4 0.7 -Total Square (Area) (cm) 2.10 0.49 -Tunneling No No -Undermining/Tunneling No No -Circular Undermining No No -Wound/Ulcer Outcome Not Healed Not Healed -Ulcer Cleansing Rinsed/ Rinsed/ Irrigated with Irrigated with Saline Saline -Foul Odor after Cleansing No No -Bioengineered Tissue No No -Bleeding Controlled with Pressure Pressure -Treatment Response Procedure Procedure Tolerated Well Tolerated Well -Offloading No -Debridement - Subq, 1st 20sq cm Yes Yes Pain Scale: 0-10 Numeric Is Patient Pain Free? Yes Yes - Nurse 3 - General Ulcer D/C NN Start: 01/24/23 09:35 Freq: Status: Active Protocol: Activity Type Activity Date Activity User E-sign Co-sign Detail Recorded Client Recorded Date Recorded By Document 01/31/23 10:01 [facility] [id number] 01/31/23 10:02 JAIME 01/31/23 10:01 Wound Care Center Nurse 3 #1 R Axilla -Ulcer Cleansing Rinsed/ Irrigated with Saline -Foul Odor after Cleansing No -Primary Dressing Applied Aquacel AG 2x2 -Primary Dressing Covered/Secured with Dry Gauze, Secured with Tape -Aquacel AG 2x2 1 Pain Scale: 0-10 Numeric Is Patient Pain Free? Yes WC - Visit Discharge Discharge Condition Stable Ambulatory Status Ambulatory Transportation Private Auto Medication Reconcilliation completed & Yes provided to patient/care provider Clinical Summary of Care Provided Yes Assessment/Plan Assessment/Plan (1) Skin ulcer of axilla with fat layer exposed: CODE(S): L98.492 - Non-pressure chronic ulcer of skin of other sites with fat layer exposed (2) Right axillary hidradenitis: CODE(S): L73.2 - Hidradenitis suppurativa (3) Stiffness of right shoulder joint: CODE(S): M25.611 - Stiffness of right shoulder, not elsewhere classified PLAN: Plan Patient evaluated at the wound healing center today. Wound care - Her mother is helping with her dressing changes, she still does not feel able to to the dressing change herself. Will place slightly moistened Aquacel-Ag every day covered by gauze. She is wearing a single layer tubigrip on her right arm for compression. Patient may shower before the dressing change and wash the wound with soap and water. Operative culture shows LONG. She completed the Linezolid. Encouraged range of motion of her right shoulder to help prevent her shoulder from getting stiff. She started PT at [facility] yesterday. She continues to have decreased shoulder ROM. She is tolerating the Lexapro well and states that it is helping with her anxiety. She continues to be anxious. I spoke with the patient about doing counseling/therapy to help with her anxiety and she seems receptive to it. The health care social worker from home health saw her last month and she gave her a list of counselors to try and get an appointment. Sandra did not want the health care social worker to help her make phone calls to actually schedule an appointment. Sandra has not scheduled anything. She has returned to work. She states that she is able to do her job. Follow up one week. Call or come in sooner if have any concerns.
[2023-02-07 09:22] VITALS: BP 128/107; PULSE 80; RESP 18; TEMP 36.9; BMI 21.1
--- NOTE | 2023-02-07 14:50 | PCM.WC.PN ---
History of Present Illness Date of Service: 02/07/23 Chief Complaint: right axilla Hidradenitis excision History of Wound: 52 year old woman presents with increasing pain and redness and swelling right axilla that started a couple months ago. She has had I&D procedures by Dr. Arita. She works in Housekeeping at [employer] and states she may be allergic to the chemicals used for cleaning. She has a history of eczema and had been on Dupixent in the past. She thinks the eczema has worsened recently since the development of her right axillary hidradenitis. She saw a Body Repairer for the eczema. Surgery 10/05/22 - Surgical preparation right axilla with excision hidradenitis (60 cm2). She was discharged on 10/06/22 with home health to assist with the wound VAC dressing changes 3 times per week. Preliminary operative cultures positive for Staphylococcus epidermidis. Waiting for sensitivities. She is currently on Doxycycline. Wound care is Aquacel-Ag slightly moistened covered with gauze. At present, she denies fever, chills, nausea, vomiting. Progress of Wound: Right axilla ulcer is larger in size with increased discomfort. She has restarted PT at [facility] and they are working hard to help with her shoulder range of motion. With the increased ROM, it has pulled at her scar tissue surrounding her ulcer which is most likely why her ulcer is larger this week. I would rather her have better ROM of her right shoulder with slower wound healing. A wound culture was obtained today since her wound is larger and has more discomfort.? A positive culture will necessitate antibiotic therapy. Objective Data Objective Data Vital Signs: Vital Signs Temp Pulse Resp BP O2 Del Method 98.5 F 80 18 128/107 H Room Air 02/07/23 09:22 02/07/23 09:22 02/07/23 09:22 02/07/23 09:22 01/31/23 09:42 Oxygen Delivery Method Room Air Weight: 126 lb 12.519 oz Body Mass Index (BMI) 21.1 Charges/Coding Procedures Integumentary 111xxx-113xx: [id number] Ana subq tissue 20 sq cm/< Debridement Note Debridement Note Wound debrided: Axilla wound Laterality: Right Wound Grade/Stage: Stage IV Type of Debridement: Excisional debridement Anesthesia Used: 4% Lidocaine Solution and 5% Lidocaine Gel Depth: Down to and including healthy tissue and in the subcutaneous layer Percentage of wound debrided: 100 Instrument Used: 5mm curette Tissue Removed: Devitalized tissue and slough. Severity: Fat Layer Exposed Amount of bleeding with debridement: Mild Bleeding Controlled with: Pressure and Compression and gauze Patient tolerated procedure: Patient tolerated procedure well Debridement Free Text: Post-Debridement Measurements and Additional Note: Post-Debridement Measurements/Treatment - Nurse 1 - General Ulcer Assessment Start: 01/24/23 09:35 Freq: Status: Active Protocol: JOSÉ Activity Type Activity Date Activity User E-sign Co-sign Detail Recorded Client Recorded Date Recorded By Document 01/24/23 09:36 [facility] [id number] 01/24/23 09:41 [facility] Document 01/31/23 09:42 [facility] [id number] 01/31/23 09:47 [facility] Document 02/07/23 09:22 [address] [id number] 02/07/23 09:23 PL 01/24/23 01/31/23 02/07/23 09:36 09:42 09:22 - Today's Visit Information Type of service Follow-up Visit Follow-up Visit Follow-up Visit (Physician/AIR CONTROL ELECTRONICS OPERATOR (Physician/AIR CONTROL ELECTRONICS OPERATOR (Physician/AIR CONTROL ELECTRONICS OPERATOR ) ) ) Arrival Mode Ambulatory Ambulatory Ambulatory Transfer Assistance None None None Patient Identification Verified (Name & Yes Yes Yes ) Patient Requires Transmission-Based No No No Precautions Safety Precautions NA Height and Weight Body Mass Index (BMI) 21.1 21.1 21.1 BMI Classification Normal Normal Normal Vital Signs Temperature (97.8 F-99.1 F) 97.3 F L 98.5 F Temperature Source Temporal Temporal Pulse Rate (60-100) 67 74 80 Pulse Location Monitor Monitor Respiratory Rate (12-18) 16 16 18 Respiratory rate source Observation Observation Oxygen Delivery Method Room Air Room Air Blood Pressure (90/60-120/80) 152/66 H 129/82 H 128/107 H Blood Pressure Mean (mm Hg) 94 97 114 Source Monitor Monitor Position Sitting Sitting Blood Pressure Location Left Arm Left Arm History Since Last Visit- (Skip if this is Patient's initial visit) Have you changed medications since your No No No last visit? Any new allergies or adverse reactions No No No Had a fall/change in ADL's that may No No No increase risk of falls Signs or symptoms of abuse and/or No No No neglect since last visit Have you been in the hospital since your No No No last visit? Has dressing in place as prescribed Yes Yes Yes Has compression in place as prescribed N/A N/A N/A Has offloadiing in place as prescribed N/A N/A N/A Experienced any changes in pain level or No No No management Left Footwear Regular Shoe Regular Shoe Right Footwear Regular Shoe Regular Shoe Pain Scale: 0-10 Numeric Is Patient Pain Free? Yes Yes Yes WC - Nurse 1 - General Ulcer Measurement Start: 01/24/23 09:35 Freq: Status: Active Protocol: Activity Type Activity Date Activity User E-sign Co-sign Detail Recorded Client Recorded Date Recorded By Document 01/24/23 09:36 [facility] [id number] 01/24/23 09:41 [facility] Document 01/31/23 09:42 [facility] [id number] 01/31/23 09:47 BM 01/24/23 01/31/23 09:36 09:42 Wound Center Nurse 1 #1 R Axilla -Combined with other wound No No -Current Size (cm) - Length 0.9 0.9 -Current Size (cm) - Width 1.2 0.9 -Current Size (cm) - Depth 0.1 0.1 -Total Square Cm 1.08 0.81 -Date of Last Picture (Recall this 01/24/23 01/31/23 field) -Photo Taken Yes Yes -Epithelialization Small 1-33% Small 1-33% -Tunneling No No -Undermining/Tunneling No No -Circular Undermining No No -Exudate Amt Medium Small -Exudate Type Serosanguineous Serosanguineous -Wound Margin Distinct, Distinct, Outline Outline Attached Attached -Granulation Amt Large (67-100%) Medium (34-66%) -Granulation Quality Hyper- Red granulation,Red -Slough/Fibrin No Yes -Necrosis Amt None Present (0 Medium (34-66%) %) -Necrotic Tissue Type Eschar -Texture (Mariaelena-wound Skin Appearance) Assessed, Assessed, Scarring Scarring -Moisture (Mariaelena-wound Skin Appearance) Assessed Assessed,Dry/ Scaly -Color (Mariaelena-wound Skin Appearance) Assessed Assessed -Temperature (Mariaelena-wound Skin No Abnormality No Abnormality Appearance) (Pt Warm) (Pt Warm) -Tenderness on Palpation (Mariaelena-wound No No Skin Appearance) -Ulcer Cleansing Rinsed/ Rinsed/ Irrigated with Irrigated with Saline Saline -Foul Odor after Cleansing No No -Anesthetic Used 5% Lidocaine 5% Lidocaine Gel Gel WC - Nurse 2 - General Ulcer CM Notes Start: 01/24/23 09:35 Freq: Status: Active Protocol: Activity Type Activity Date Activity User E-sign Co-sign Detail Recorded Client Recorded Date Recorded By Document 01/24/23 11:37 PL [id number] 01/24/23 11:38 PL Document 01/31/23 09:56 [id number] 01/31/23 10:01 JF Document 02/07/23 09:47 [id number] 02/07/23 09:48 01/24/23 01/31/23 02/07/23 11:37 09:56 09:47 Wound Center Nurse 2 #1 R Axilla -Time 09:44 09:56 09:48 -Correct Patient Yes Yes Yes -Correct Side, Site, Position Yes Yes Yes -Correct Procedure Yes Yes Yes -Procedure Performed Yes Yes Yes -Type of Procedure Debridement Debridement Debridement -Clinical Debridement Subcutaneous Subcutaneous Subcutaneous -Tissue Removed Subcutaneous Subcutaneous Subcutaneous -Post Debridement (cm) - Length 1.5 0.7 2.8 -Post Debridement (cm) - Width 1.4 0.7 1.0 -Post Debridement (cm) - Depth 0.1 0.1 0.1 -Total Square (Post) (cm) 2.10 0.49 2.80 -Area of Debridement (cm) - Length 1.5 0.7 2.8 -Area of Debridement (cm) - Width 1.4 0.7 1 -Total Square (Area) (cm) 2.10 0.49 2.8 -Tunneling No No No -Undermining/Tunneling No No No -Circular Undermining No No No -Wound/Ulcer Outcome Not Healed Not Healed Not Healed -Ulcer Cleansing Rinsed/ Rinsed/ Rinsed/ Irrigated with Irrigated with Irrigated with Saline Saline Saline -Foul Odor after Cleansing No No No -Bioengineered Tissue No No No -Bleeding Controlled with Pressure Pressure Pressure -Treatment Response Procedure Procedure Procedure Tolerated Well Tolerated Well Tolerated Well -Offloading No No -Debridement - Subq, 1st 20sq cm Yes Yes Yes Pain Scale: 0-10 Numeric Is Patient Pain Free? Yes Yes Yes - Nurse 3 - General Ulcer D/C NN Start: 01/24/23 09:35 Freq: Status: Active Protocol: Activity Type Activity Date Activity User E-sign Co-sign Detail Recorded Client Recorded Date Recorded By Document 01/31/23 10:01 [id number] 01/31/23 10:02 01/31/23 10:01 Wound Care Center Nurse 3 #1 R Axilla -Ulcer Cleansing Rinsed/ Irrigated with Saline -Foul Odor after Cleansing No -Primary Dressing Applied Aquacel AG 2x2 -Primary Dressing Covered/Secured with Dry Gauze, Secured with Tape -Aquacel AG 2x2 1 Pain Scale: 0-10 Numeric Is Patient Pain Free? Yes - Visit Discharge Discharge Condition Stable Ambulatory Status Ambulatory Transportation Private Auto Medication Reconcilliation completed & Yes provided to patient/care provider Clinical Summary of Care Provided Yes Assessment/Plan Assessment/Plan (1) Skin ulcer of axilla with fat layer exposed: CODE(S): L98.492 - Non-pressure chronic ulcer of skin of other sites with fat layer exposed (2) Right axillary hidradenitis: CODE(S): L73.2 - Hidradenitis suppurativa (3) Stiffness of right shoulder joint: CODE(S): M25.611 - Stiffness of right shoulder, not elsewhere classified PLAN: Plan Patient evaluated at the wound healing center today. Wound care - Her mother is helping with her dressing changes, she still does not feel able to to the dressing change herself. Will place slightly moistened Aquacel-Ag every day covered by gauze. She is wearing a single layer tubigrip on her right arm for compression. Patient may shower before the dressing change and wash the wound with soap and water. A wound culture was obtained today, 02/07/23.? A positive culture will necessitate antibiotic therapy. Operative culture shows LONG. She completed the Linezolid. Encouraged range of motion of her right shoulder to help prevent her shoulder from getting stiff. She is doing PT at [facility]. She continues to have decreased shoulder ROM. She is tolerating the Lexapro well and states that it is helping with her anxiety. She continues to be anxious. I spoke with the patient about doing counseling/therapy to help with her anxiety and she seems receptive to it. The secondary social studies teacher from home health saw her last month and she gave her a list of counselors to try and get an appointment. Sandra did not want the secondary social studies teacher to help her make phone calls to actually schedule an appointment. Sandra has not scheduled anything. She has returned to work. She states that she is able to do her job. Follow up one week. Call or come in sooner if have any concerns.
[2023-02-14 11:11] VITALS: BP 152/84; PULSE 71; RESP 18; TEMP 36.4; BMI 21.1
--- NOTE | 2023-02-14 12:12 | PN.PCM_ITS ---
History of Present Illness Date of Service: 02/14/23 Chief Complaint: right axilla Hidradenitis excision History of Wound: 52 year old woman presents with increasing pain and redness and swelling right axilla that started a couple months ago. She has had I&D procedures by Dr. Arita. She works in Housekeeping at [employer] and states she may be allergic to the chemicals used for cleaning. She has a history of eczema and had been on Dupixent in the past. She thinks the eczema has worsened recently since the development of her right axillary hidradenitis. She saw a [employer] Operator for the eczema. Surgery 10/05/22 - Surgical preparation right axilla with excision hidradenitis (60 cm2). She was discharged on 10/06/22 with home health to assist with the wound VAC dressing changes 3 times per week. Operative cultures positive for Staphylococcus epidermidis. Wound culture obtained on 02/07/23 which was positive for MSSA. She was initially started on Augmentin but she claimed she was allergic to it, so it was changed to Doxycycline. Wound care is Aquacel-Ag slightly moistened covered with gauze. At present, she denies fever, chills, nausea, vomiting. Progress of Wound: Right axilla ulcer is slightly smaller in size. She has started on an antibiotic for her positive wound culture. She has restarted PT at [facility] and they are working hard to help with her shoulder range of motion. I would rather her have better ROM of her right shoulder with slower wound healing. Objective Data Objective Data Vital Signs: Vital Signs Temp Pulse Resp BP O2 Del Method 97.6 F L 71 18 152/84 H Room Air 02/14/23 11:11 02/14/23 11:11 02/14/23 11:11 02/14/23 11:11 01/31/23 09:42 Oxygen Delivery Method Room Air Weight: 126 lb 12.519 oz Body Mass Index (BMI) 21.1 Lab / Micro Data Micro: Microbiology 02/07/23 Unknown Wound - Axilla Gram Stain - Final 02/07/23 Unknown Wound - Axilla Wound Culture - Final Staphylococcus aureus 02/07/23 Unknown Wound - Axilla Anaerobic Culture - Final No anaerobic bacteria isolated. Charges/Coding Procedures Integumentary [id number]: [id number] Ana subq tissue 20 sq cm/< Debridement Note Debridement Note Wound debrided: Axilla wound Laterality: Right Wound Grade/Stage: Stage IV Type of Debridement: Excisional debridement Anesthesia Used: 4% Lidocaine Solution and 5% Lidocaine Gel Depth: Down to and including healthy tissue and in the subcutaneous layer Percentage of wound debrided: 100 Instrument Used: 5mm curette Tissue Removed: Devitalized tissue and slough. Severity: Fat Layer Exposed Amount of bleeding with debridement: Mild Bleeding Controlled with: Pressure and Compression and gauze Patient tolerated procedure: Patient tolerated procedure well Debridement Free Text: Post-Debridement Measurements and Additional Note: Post-Debridement Measurements/Treatment - Nurse 1 - General Ulcer Assessment Start: 01/24/23 09:35 Freq: Status: Active Protocol: JOSÉ Activity Type Activity Date Activity User E-sign Co-sign Detail Recorded Client Recorded Date Recorded By Document 01/24/23 09:36 [facility] [id number] 01/24/23 09:41 [facility] Document 01/31/23 09:42 [facility] [id number] 01/31/23 09:47 [facility] Document 02/07/23 09:[address] [id number] 02/07/23 09:23 PL Document 02/14/23 11:11 PL [id number] 02/14/23 11:14 PL 01/24/23 01/31/23 02/07/23 09:36 09:42 09:22 - Today's Visit Information Type of service Follow-up Visit Follow-up Visit Follow-up Visit (Physician/MATERIAL REQUIREMENTS PLANNING MANAGER (Physician/MATERIAL REQUIREMENTS PLANNING MANAGER (Physician/MATERIAL REQUIREMENTS PLANNING MANAGER ) ) ) Arrival Mode Ambulatory Ambulatory Ambulatory Transfer Assistance None None None Patient Identification Verified (Name & Yes Yes Yes ) Patient Requires Transmission-Based No No No Precautions Safety Precautions NA Height and Weight Body Mass Index (BMI) 21.1 21.1 21.1 BMI Classification Normal Normal Normal Vital Signs Temperature (97.8 F-99.1 F) 97.3 F L 98.5 F Temperature Source Temporal Temporal Pulse Rate (60-100) 67 74 80 Pulse Location Monitor Monitor Respiratory Rate (12-18) 16 16 18 Respiratory rate source Observation Observation Oxygen Delivery Method Room Air Room Air Blood Pressure (90/60-120/80) 152/66 H 129/82 H 128/107 H Blood Pressure Mean (mm Hg) 94 97 114 Source Monitor Monitor Position Sitting Sitting Blood Pressure Location Left Arm Left Arm History Since Last Visit- (Skip if this is Patient's initial visit) Have you changed medications since your No No No last visit? Any new allergies or adverse reactions No No No Had a fall/change in ADL's that may No No No increase risk of falls Signs or symptoms of abuse and/or No No No neglect since last visit Have you been in the hospital since your No No No last visit? Has dressing in place as prescribed Yes Yes Yes Has compression in place as prescribed N/A N/A N/A Has offloadiing in place as prescribed N/A N/A N/A Experienced any changes in pain level or No No No management Left Footwear Regular Shoe Regular Shoe Right Footwear Regular Shoe Regular Shoe Pain Scale: 0-10 Numeric Is Patient Pain Free? Yes Yes Yes 02/14/23 11:11 WC - Today's Visit Information Type of service Follow-up Visit (Physician/MATERIAL REQUIREMENTS PLANNING MANAGER ) Arrival Mode Ambulatory Transfer Assistance None Patient Identification Verified (Name & Yes ) Patient Requires Transmission-Based No Precautions Safety Precautions NA Height and Weight Body Mass Index (BMI) 21.1 BMI Classification Normal Vital Signs Temperature (97.8 F-99.1 F) 97.6 F L Temperature Source Temporal Pulse Rate (60-100) 71 Pulse Location Respiratory Rate (12-18) 18 Respiratory rate source Oxygen Delivery Method Blood Pressure (90/60-120/80) 152/84 H Blood Pressure Mean (mm Hg) 106 Source Position Blood Pressure Location History Since Last Visit- (Skip if this is Patient's initial visit) Have you changed medications since your No last visit? Any new allergies or adverse reactions No Had a fall/change in ADL's that may No increase risk of falls Signs or symptoms of abuse and/or No neglect since last visit Have you been in the hospital since your No last visit? Has dressing in place as prescribed Yes Has compression in place as prescribed N/A Has offloadiing in place as prescribed N/A Experienced any changes in pain level or No management Left Footwear Right Footwear Pain Scale: 0-10 Numeric Is Patient Pain Free? Yes - Nurse 1 - General Ulcer Measurement Start: 01/24/23 09:35 Freq: Status: Active Protocol: Activity Type Activity Date Activity User E-sign Co-sign Detail Recorded Client Recorded Date Recorded By Document 01/24/23 09:36 [facility] [id number] 01/24/23 09:41 [facility] Document 01/31/23 09:42 [facility] [id number] 01/31/23 09:47 [facility] 01/24/23 01/31/23 09:36 09:42 Wound Center Nurse 1 #1 R Axilla -Combined with other wound No No -Current Size (cm) - Length 0.9 0.9 -Current Size (cm) - Width 1.2 0.9 -Current Size (cm) - Depth 0.1 0.1 -Total Square Cm 1.08 0.81 -Date of Last Picture (Recall this 01/24/23 01/31/23 field) -Photo Taken Yes Yes -Epithelialization Small 1-33% Small 1-33% -Tunneling No No -Undermining/Tunneling No No -Circular Undermining No No -Exudate Amt Medium Small -Exudate Type Serosanguineous Serosanguineous -Wound Margin Distinct, Distinct, Outline Outline Attached Attached -Granulation Amt Large (67-100%) Medium (34-66%) -Granulation Quality Hyper- Red granulation,Red -Slough/Fibrin No Yes -Necrosis Amt None Present (0 Medium (34-66%) %) -Necrotic Tissue Type Eschar -Texture (Mariaelena-wound Skin Appearance) Assessed, Assessed, Scarring Scarring -Moisture (Mariaelena-wound Skin Appearance) Assessed Assessed,Dry/ Scaly -Color (Mariaelena-wound Skin Appearance) Assessed Assessed -Temperature (Mariaelena-wound Skin No Abnormality No Abnormality Appearance) (Pt Warm) (Pt Warm) -Tenderness on Palpation (Mariaelena-wound No No Skin Appearance) -Ulcer Cleansing Rinsed/ Rinsed/ Irrigated with Irrigated with Saline Saline -Foul Odor after Cleansing No No -Anesthetic Used 5% Lidocaine 5% Lidocaine Gel Gel WC - Nurse 2 - General Ulcer CM Notes Start: 01/24/23 09:35 Freq: Status: Active Protocol: Activity Type Activity Date Activity User E-sign Co-sign Detail Recorded Client Recorded Date Recorded By Document 01/24/23 11:37 PL [id number] 01/24/23 11:38 PL Document 01/31/23 09:56 [id number] 01/31/23 10:01 Document 02/07/23 09:47 [id number] 02/07/23 09:48 Document 02/14/23 11:34 [id number] 02/14/23 11:36 01/24/23 01/31/23 02/07/23 11:37 09:56 09:47 Wound Center Nurse 2 #1 R Axilla -Time 09:44 09:56 09:48 -Correct Patient Yes Yes Yes -Correct Side, Site, Position Yes Yes Yes -Correct Procedure Yes Yes Yes -Procedure Performed Yes Yes Yes -Type of Procedure Debridement Debridement Debridement -Clinical Debridement Subcutaneous Subcutaneous Subcutaneous -Tissue Removed Subcutaneous Subcutaneous Subcutaneous -Post Debridement (cm) - Length 1.5 0.7 2.8 -Post Debridement (cm) - Width 1.4 0.7 1.0 -Post Debridement (cm) - Depth 0.1 0.1 0.1 -Total Square (Post) (cm) 2.10 0.49 2.80 -Area of Debridement (cm) - Length 1.5 0.7 2.8 -Area of Debridement (cm) - Width 1.4 0.7 1 -Total Square (Area) (cm) 2.10 0.49 2.8 -Tunneling No No No -Undermining/Tunneling No No No -Circular Undermining No No No -Wound/Ulcer Outcome Not Healed Not Healed Not Healed -Ulcer Cleansing Rinsed/ Rinsed/ Rinsed/ Irrigated with Irrigated with Irrigated with Saline Saline Saline -Foul Odor after Cleansing No No No -Bioengineered Tissue No No No -Bleeding Controlled with Pressure Pressure Pressure -Treatment Response Procedure Procedure Procedure Tolerated Well Tolerated Well Tolerated Well -Offloading No No -Debridement - Subq, 1st 20sq cm Yes Yes Yes Pain Scale: 0-10 Numeric Is Patient Pain Free? Yes Yes Yes 02/14/23 11:34 Wound Center Nurse 2 #1 R Axilla -Time 11:35 -Correct Patient Yes -Correct Side, Site, Position Yes -Correct Procedure Yes -Procedure Performed Yes -Type of Procedure Debridement -Clinical Debridement Subcutaneous -Tissue Removed Subcutaneous -Post Debridement (cm) - Length 2.0 -Post Debridement (cm) - Width 0.8 -Post Debridement (cm) - Depth 0.1 -Total Square (Post) (cm) 1.60 -Area of Debridement (cm) - Length 2.0 -Area of Debridement (cm) - Width 0.8 -Total Square (Area) (cm) 1.60 -Tunneling No -Undermining/Tunneling No -Circular Undermining No -Wound/Ulcer Outcome Not Healed -Ulcer Cleansing Rinsed/ Irrigated with Saline -Foul Odor after Cleansing No -Bioengineered Tissue No -Bleeding Controlled with Pressure -Treatment Response Procedure Tolerated Well -Offloading No -Debridement - Subq, 1st 20sq cm Yes Pain Scale: 0-10 Numeric Is Patient Pain Free? Yes - Nurse 3 - General Ulcer D/C NN Start: 01/24/23 09:35 Freq: Status: Active Protocol: Activity Type Activity Date Activity User E-sign Co-sign Detail Recorded Client Recorded Date Recorded By Document 01/31/23 10:01 [id number] 01/31/23 10:02 JF Document 02/14/23 11:59 DL [id number] 02/14/23 11:59 DL 01/31/23 02/14/23 10:01 11:59 Wound Care Center Nurse 3 #1 R Axilla -Ulcer Cleansing Rinsed/ Rinsed/ Irrigated with Irrigated with Saline Saline -Foul Odor after Cleansing No No -Primary Dressing Applied Aquacel AG 2x2 Aquacel AG 4x4 -Primary Dressing Covered/Secured with Dry Gauze, Dry Gauze, Secured with Secured with Tape Tape -Aquacel AG 2x2 1 -Aquacel AG 4x4 1 Pain Scale: 0-10 Numeric Is Patient Pain Free? Yes Yes - Visit Discharge Discharge Condition Stable Stable Ambulatory Status Ambulatory Ambulatory Transportation Private Auto Private Auto Medication Reconcilliation completed & Yes Yes provided to patient/care provider Clinical Summary of Care Provided Yes Yes Assessment/Plan Assessment/Plan (1) Skin ulcer of axilla with fat layer exposed: CODE(S): L98.492 - Non-pressure chronic ulcer of skin of other sites with fat layer exposed (2) Right axillary hidradenitis: CODE(S): L73.2 - Hidradenitis suppurativa (3) Stiffness of right shoulder joint: CODE(S): M25.611 - Stiffness of right shoulder, not elsewhere classified PLAN: Plan Patient evaluated at the wound healing center today. Wound care - Her mother is helping with her dressing changes, she still does not feel able to to the dressing change herself. Will place slightly moistened Aquacel-Ag every day covered by gauze. She is wearing a single layer tubigrip on her right arm for compression. Patient may shower before the dressing change and wash the wound with soap and water. A wound culture was obtained on 02/07/23 and was positive for MSSA. She was initially started on Augmentin but then she said she was allergic to it (unsure of what her allergy is), her antibiotic was changed to Doxycycline. Operative culture shows LONG. She completed the Linezolid. Encouraged range of motion of her right shoulder to help prevent her shoulder from getting stiff. She is doing PT at [facility]. She continues to have decreased shoulder ROM. She is tolerating the Lexapro well and states that it is helping with her anxiety. She continues to be anxious. I spoke with the patient about doing counseling/therapy to help with her anxiety and she seems receptive to it. The social service director from home health saw her last month and she gave her a list of counselors to try and get an appointment. Sandra did not want the social service director to help her make phone calls to actually schedule an appointment. Sandra has not scheduled anything. She has returned to work. She states that she is able to do her job. Follow up one week. Call or come in sooner if have any concerns.
[2023-02-21 09:30] VITALS: BP 131/74; PULSE 76; RESP 20; TEMP 36.3; BMI 21.1
--- NOTE | 2023-02-21 10:29 | PCM.WC.PN ---
History of Present Illness Date of Service: 02/21/23 Chief Complaint: right axilla Hidradenitis excision History of Wound: 52 year old woman presents with increasing pain and redness and swelling right axilla that started a couple months ago. She has had I&D procedures by Dr. Arita. 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 She has a history of eczema and had been on Dupixent in the past. She thinks the eczema has worsened recently since the development of her right axillary hidradenitis. She saw a Production Planning Supervisor for the eczema. Surgery 10/05/22 - Surgical preparation right axilla with excision hidradenitis (60 cm2). She was discharged on 10/06/22 with home health to assist with the wound VAC dressing changes 3 times per week. Operative cultures positive for Staphylococcus epidermidis. Wound culture obtained on 02/07/23 which was positive for MSSA. She was initially started on Augmentin but she claimed she was allergic to it, so it was changed to Doxycycline. Wound care is Collagen hydrogel covered with gauze. At present, she denies fever, chills, nausea, vomiting. Progress of Wound: Right axilla ulcer is smaller in size today and is now a cluster. She has restarted PT at [facility] and they are working hard to help with her shoulder range of motion which does seem to be improving. Objective Data Objective Data Vital Signs: Vital Signs Temp Pulse Resp BP O2 Del Method 97.3 F L 76 20 H 131/74 H Room Air 02/21/23 09:30 02/21/23 09:30 02/21/23 09:30 02/21/23 09:30 01/31/23 09:42 Oxygen Delivery Method Room Air Weight: 126 lb 12.519 oz Body Mass Index (BMI) 21.1 Lab / Micro Data Micro: Microbiology 02/07/23 Unknown Wound - Axilla Gram Stain - Final 02/07/23 Unknown Wound - Axilla Wound Culture - Final Staphylococcus aureus 02/07/23 Unknown Wound - Axilla Anaerobic Culture - Final No anaerobic bacteria isolated. Charges/Coding Procedures Integumentary [id number]: [id number] Ana subq tissue 20 sq cm/< Debridement Note Debridement Note Wound debrided: Axilla wound Laterality: Right Wound Grade/Stage: Stage IV Type of Debridement: Excisional debridement Anesthesia Used: 4% Lidocaine Solution and 5% Lidocaine Gel Depth: Down to and including healthy tissue and in the subcutaneous layer Percentage of wound debrided: 100 Instrument Used: 3mm curette Tissue Removed: Devitalized tissue and slough. Severity: Fat Layer Exposed Amount of bleeding with debridement: Mild Bleeding Controlled with: Pressure and Compression and gauze Patient tolerated procedure: Patient tolerated procedure well Debridement Free Text: Post-Debridement Measurements and Additional Note: Post-Debridement Measurements/Treatment - Nurse 1 - General Ulcer Assessment Start: 01/24/23 09:35 Freq: Status: Active Protocol: JOSÉ Activity Type Activity Date Activity User E-sign Co-sign Detail Recorded Client Recorded Date Recorded By Document 01/24/23 09:36 [facility] [id number] 01/24/23 09:41 BM Document 01/31/23 09:42 BM [id number] 01/31/23 09:47 BMF Document 02/07/23 09:22 PL [id number] 02/07/23 09:23 PL Document 02/14/23 11:11 PL [id number] 02/14/23 11:14 PL Document 02/21/23 09:30 DL [id number] 02/21/23 09:34 DL 01/24/23 01/31/23 02/07/23 09:36 09:42 09:22 - Today's Visit Information Type of service Follow-up Visit Follow-up Visit Follow-up Visit (Physician/COMPUTER TESTER (Physician/COMPUTER TESTER (Physician/COMPUTER TESTER ) ) ) Arrival Mode Ambulatory Ambulatory Ambulatory Transfer Assistance None None None Patient Identification Verified (Name & Yes Yes Yes ) Patient Requires Transmission-Based No No No Precautions Safety Precautions NA Height and Weight Body Mass Index (BMI) 21.1 21.1 21.1 BMI Classification Normal Normal Normal Vital Signs Temperature (97.8 F-99.1 F) 97.3 F L 98.5 F Temperature Source Temporal Temporal Pulse Rate (60-100) 67 74 80 Pulse Location Monitor Monitor Respiratory Rate (12-18) 16 16 18 Respiratory rate source Observation Observation Oxygen Delivery Method Room Air Room Air Blood Pressure (90/60-120/80) 152/66 H 129/82 H 128/107 H Blood Pressure Mean (mm Hg) 94 97 114 Source Monitor Monitor Position Sitting Sitting Blood Pressure Location Left Arm Left Arm History Since Last Visit- (Skip if this is Patient's initial visit) Have you changed medications since your No No No last visit? Any new allergies or adverse reactions No No No Had a fall/change in ADL's that may No No No increase risk of falls Signs or symptoms of abuse and/or No No No neglect since last visit Have you been in the hospital since your No No No last visit? Has dressing in place as prescribed Yes Yes Yes Has compression in place as prescribed N/A N/A N/A Has offloadiing in place as prescribed N/A N/A N/A Experienced any changes in pain level or No No No management Left Footwear Regular Shoe Regular Shoe Right Footwear Regular Shoe Regular Shoe Pain Scale: 0-10 Numeric Is Patient Pain Free? Yes Yes Yes 02/14/23 02/21/23 11:11 09:30 WC - Today's Visit Information Type of service Follow-up Visit Follow-up Visit (Physician/COMPUTER TESTER (Physician/COMPUTER TESTER ) ) Arrival Mode Ambulatory Ambulatory Transfer Assistance None None Patient Identification Verified (Name & Yes Yes ) Patient Requires Transmission-Based No No Precautions Safety Precautions NA Height and Weight Body Mass Index (BMI) 21.1 21.1 BMI Classification Normal Normal Vital Signs Temperature (97.8 F-99.1 F) 97.6 F L 97.3 F L Temperature Source Temporal Temporal Pulse Rate (60-100) 71 76 Pulse Location Monitor Respiratory Rate (12-18) 18 20 H Respiratory rate source Observation Oxygen Delivery Method Blood Pressure (90/60-120/80) 152/84 H 131/74 H Blood Pressure Mean (mm Hg) 106 93 Source Monitor Position Blood Pressure Location History Since Last Visit- (Skip if this is Patient's initial visit) Have you changed medications since your No No last visit? Any new allergies or adverse reactions No No Had a fall/change in ADL's that may No No increase risk of falls Signs or symptoms of abuse and/or No No neglect since last visit Have you been in the hospital since your No No last visit? Has dressing in place as prescribed Yes Yes Has compression in place as prescribed N/A N/A Has offloadiing in place as prescribed N/A N/A Experienced any changes in pain level or No No management Left Footwear Right Footwear Pain Scale: 0-10 Numeric Is Patient Pain Free? Yes Yes WC - Nurse 1 - General Ulcer Measurement Start: 01/24/23 09:35 Freq: Status: Active Protocol: Activity Type Activity Date Activity User E-sign Co-sign Detail Recorded Client Recorded Date Recorded By Document 01/24/23 09:36 BMF [id number] 01/24/23 09:41 BMF Document 01/31/23 09:42 BMF [id number] 01/31/23 09:47 BMF Document 02/21/23 09:30 DL [id number] 02/21/23 09:34 DL 01/24/23 01/31/23 02/21/23 09:36 09:42 09:30 Wound Center Nurse 1 #1 R Axilla cluster -Combined with other wound No No -Current Size (cm) - Length 0.9 0.9 1.1 -Current Size (cm) - Width 1.2 0.9 0.5 -Current Size (cm) - Depth 0.1 0.1 0.1 -Total Square Cm 1.08 0.81 0.55 -Date of Last Picture (Recall this 01/24/23 01/31/23 field) -Photo Taken Yes Yes -Epithelialization Small 1-33% Small 1-33% -Tunneling No No -Undermining/Tunneling No No -Circular Undermining No No -Exudate Amt Medium Small Small -Exudate Type Serosanguineous Serosanguineous Serosanguineous -Wound Margin Distinct, Distinct, Distinct, Outline Outline Outline Attached Attached Attached -Granulation Amt Large (67-100%) Medium (34-66%) Large (67-100%) -Granulation Quality Hyper- [place] granulation,Red -Slough/Fibrin No Yes -Necrosis Amt None Present (0 Medium (34-66%) Small (1-33%) %) -Necrotic Tissue Type Eschar Adherent Slough -Structure Exposed N/A -Texture (Mariaelena-wound Skin Appearance) Assessed, Assessed, Scarring Scarring Scarring -Moisture (Mariaelena-wound Skin Appearance) Assessed Assessed,Dry/ No Abnormality Scaly -Color (Mariaelena-wound Skin Appearance) Assessed Assessed No Abnormality -Temperature (Mariaelena-wound Skin No Abnormality No Abnormality No Abnormality Appearance) (Pt Warm) (Pt Warm) (Pt Warm) -Tenderness on Palpation (Mariaelena-wound No No No Skin Appearance) -Ulcer Cleansing Rinsed/ Rinsed/ Rinsed/ Irrigated with Irrigated with Irrigated with Saline Saline Saline -Foul Odor after Cleansing No No No -Anesthetic Used 5% Lidocaine 5% Lidocaine 5% Lidocaine Gel Gel Gel WC - Nurse 2 - General Ulcer CM Notes Start: 01/24/23 09:35 Freq: Status: Active Protocol: Activity Type Activity Date Activity User E-sign Co-sign Detail Recorded Client Recorded Date Recorded By Document 01/24/23 11:37 PL [id number] 01/24/23 11:38 PL Document 01/31/23 09:56 [id number] 01/31/23 10:01 Document 02/07/23 09:47 [id number] 02/07/23 09:48 Document 02/14/23 11:34 [id number] 02/14/23 11:36 Document 02/21/23 09:45 [id number] 02/21/23 09:46 01/24/23 01/31/23 02/07/23 11:37 09:56 09:47 Wound Center Nurse 2 #1 R Axilla cluster -Time 09:44 09:56 09:48 -Correct Patient Yes Yes Yes -Correct Side, Site, Position Yes Yes Yes -Correct Procedure Yes Yes Yes -Procedure Performed Yes Yes Yes -Type of Procedure Debridement Debridement Debridement -Clinical Debridement Subcutaneous Subcutaneous Subcutaneous -Tissue Removed Subcutaneous Subcutaneous Subcutaneous -Post Debridement (cm) - Length 1.5 0.7 2.8 -Post Debridement (cm) - Width 1.4 0.7 1.0 -Post Debridement (cm) - Depth 0.1 0.1 0.1 -Total Square (Post) (cm) 2.10 0.49 2.80 -Area of Debridement (cm) - Length 1.5 0.7 2.8 -Area of Debridement (cm) - Width 1.4 0.7 1 -Total Square (Area) (cm) 2.10 0.49 2.8 -Tunneling No No No -Undermining/Tunneling No No No -Circular Undermining No No No -Wound/Ulcer Outcome Not Healed Not Healed Not Healed -Ulcer Cleansing Rinsed/ Rinsed/ Rinsed/ Irrigated with Irrigated with Irrigated with Saline Saline Saline -Foul Odor after Cleansing No No No -Bioengineered Tissue No No No -Bleeding Controlled with Pressure Pressure Pressure -Treatment Response Procedure Procedure Procedure Tolerated Well Tolerated Well Tolerated Well -Offloading No No -Debridement - Subq, 1st 20sq cm Yes Yes Yes Pain Scale: 0-10 Numeric Is Patient Pain Free? Yes Yes Yes 02/14/23 02/21/23 11:34 09:45 Wound Center Nurse 2 #1 R Axilla cluster -Time 11:35 09:45 -Correct Patient Yes Yes -Correct Side, Site, Position Yes Yes -Correct Procedure Yes Yes -Procedure Performed Yes Yes -Type of Procedure Debridement Debridement -Clinical Debridement Subcutaneous Subcutaneous -Tissue Removed Subcutaneous Subcutaneous -Post Debridement (cm) - Length 2.0 1.5 -Post Debridement (cm) - Width 0.8 0.9 -Post Debridement (cm) - Depth 0.1 0.1 -Total Square (Post) (cm) 1.60 1.35 -Area of Debridement (cm) - Length 2.0 1.5 -Area of Debridement (cm) - Width 0.8 0.9 -Total Square (Area) (cm) 1.60 1.35 -Tunneling No No -Undermining/Tunneling No No -Circular Undermining No No -Wound/Ulcer Outcome Not Healed Not Healed -Ulcer Cleansing Rinsed/ Rinsed/ Irrigated with Irrigated with Saline Saline -Foul Odor after Cleansing No No -Bioengineered Tissue No No -Bleeding Controlled with Pressure Pressure -Treatment Response Procedure Procedure Tolerated Well Tolerated Well -Offloading No No -Debridement - Subq, 1st 20sq cm Yes Yes Pain Scale: 0-10 Numeric Is Patient Pain Free? Yes Yes - Nurse 3 - General Ulcer D/C NN Start: 01/24/23 09:35 Freq: Status: Active Protocol: Activity Type Activity Date Activity User E-sign Co-sign Detail Recorded Client Recorded Date Recorded By Document 01/31/23 10:01 JAIME [id number] 01/31/23 10:02 JAIME Document 02/14/23 11:59 DL [id number] 02/14/23 11:59 DL Document 02/21/23 09:46 [id number] 02/21/23 09:47 JF Document 02/21/23 09:53 DL [id number] 02/21/23 09:55 DL 01/31/23 02/14/23 02/21/23 10:01 11:59 09:46 Wound Care Center Nurse 3 #1 R Axilla cluster -Ulcer Cleansing Rinsed/ Rinsed/ Rinsed/ Irrigated with Irrigated with Irrigated with Saline Saline Saline -Foul Odor after Cleansing No No No -Primary Dressing Applied Aquacel AG 2x2 Aquacel AG 4x4 C Hydrogel ($) -Primary Dressing Covered/Secured with Dry Gauze, Dry Gauze, Dry Gauze, Secured with Secured with Secured with Tape Tape Tape -Aquacel AG 2x2 1 -Aquacel AG 4x4 1 Treatment Response Pain Scale: 0-10 Numeric Is Patient Pain Free? Yes Yes Yes WC - Visit Discharge Discharge Condition Stable Stable Stable Ambulatory Status Ambulatory Ambulatory Ambulatory Transportation Private Auto Private Auto Private Auto Medication Reconcilliation completed & Yes Yes Yes provided to patient/care provider Clinical Summary of Care Provided Yes Yes 02/21/23 09:53 Wound Care Center Nurse 3 #1 R Axilla cluster -Ulcer Cleansing Rinsed/ Irrigated with Saline -Foul Odor after Cleansing No -Primary Dressing Applied C Hydrogel ($) -Primary Dressing Covered/Secured with Dry Gauze, Secured with Tape -Aquacel AG 2x2 -Aquacel AG 4x4 Treatment Response Procedure Tolerated Well Pain Scale: 0-10 Numeric Is Patient Pain Free? Yes WC - Visit Discharge Discharge Condition Stable Ambulatory Status Ambulatory Transportation Private Auto Medication Reconcilliation completed & provided to patient/care provider Clinical Summary of Care Provided Assessment/Plan Assessment/Plan (1) Skin ulcer of axilla with fat layer exposed: CODE(S): L98.492 - Non-pressure chronic ulcer of skin of other sites with fat layer exposed (2) Right axillary hidradenitis: CODE(S): L73.2 - Hidradenitis suppurativa (3) Stiffness of right shoulder joint: CODE(S): M25.611 - Stiffness of right shoulder, not elsewhere classified PLAN: Plan Patient evaluated at the wound healing center today. Wound care - Her mother is helping with her dressing changes, she still does not feel able to to the dressing change herself. Will place collagen hydrogel covered by gauze daily. She is wearing a single layer tubigrip on her right arm for compression. Patient may shower before the dressing change and wash the wound with soap and water. A wound culture was obtained on 02/07/23 and was positive for MSSA. She was initially started on Augmentin but then she said she was allergic to it (unsure of what her allergy is), her antibiotic was changed to Doxycycline. Operative culture shows LONG. She completed the Linezolid. Encouraged range of motion of her right shoulder to help prevent her shoulder from getting stiff. She is doing PT at [facility]. She continues to have decreased shoulder ROM but it is starting to slightly improve. She is tolerating the Lexapro well and states that it is helping with her anxiety. She continues to be anxious. I spoke with the patient about doing counseling/therapy to help with her anxiety but has never called anyone. The social media marketing specialist from home health saw her last month and she gave her a list of counselors to try and get an appointment. Sandra did not want the social media marketing specialist to help her make phone calls to actually schedule an appointment. Sandra has not scheduled anything. I would like her to see her PCP for further evaluation of her anxiety and to take over the management of her medication. Sandra states that she has not seen her PCP in a while. I suggested that she get an appointment set up for follow up. She has returned to work. She states that she is able to do her job. Follow up one week. Call or come in sooner if have any concerns.
== END 2023-02-22 23:59 | disposition home or self-care (01) ==
LOC: WC 09:45
PROVIDERS: PCP Nurse Practitioner Family; Referring Provider Nurse Practitioner Family; Visit Provider Nurse Practitioner Family
DX: L98.492 Non-pressure chronic ulcer of skin of other sites with fat layer exposed (principal); L30.9 Dermatitis, unspecified; L73.2 Hidradenitis suppurativa; M25.611 Stiffness of right shoulder, not elsewhere classified; Z79.899 Other long term (current) drug therapy
CPT/HCPCS: 11042; 87070; 87075; 87077; 87186; 87205

== ENCOUNTER 2023-02-28 11:10 | Outpatient (RCR) | payer OTHER, SELFPAY ==
[2023-02-23 00:29] VITALS: BP 131/74; PULSE 76; RESP 20; TEMP 36.3; BMI 21.1
[2023-02-28 11:20] VITALS: BP 139/71; PULSE 67; RESP 18; TEMP 36.6; BMI 21.1
--- NOTE | 2023-02-28 12:44 | PN.PCM_ITS ---
History of Present Illness Date of Service: 02/28/23 Chief Complaint: right axilla Hidradenitis excision History of Wound: 52 year old woman presents with increasing pain and redness and swelling right axilla that started a couple months ago. She has had I&D procedures by Dr. Arita. 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 She has a history of eczema and had been on Dupixent in the past. She thinks the eczema has worsened recently since the development of her right axillary hidradenitis. She saw a Applied Behavior Science Specialist for the eczema. Surgery 10/05/22 - Surgical preparation right axilla with excision hidradenitis (60 cm2). She was discharged on 10/06/22 with home health to assist with the wound VAC dressing changes 3 times per week. Operative cultures positive for Staphylococcus epidermidis. Wound culture obtained on 02/07/23 which was positive for MSSA. She was initially started on Augmentin but she claimed she was allergic to it, so it was changed to Doxycycline. Wound care is Aquacel-Ag slightly moistened covered with gauze. At present, she denies fever, chills, nausea, vomiting. Progress of Wound: Right axilla ulcer is healed today. She has some pulling of scar tissue present, but the ulcer is healed. She is still doing PT for her shoulder at [facility] and they are working hard to help with her shoulder range of motion which does seem to be improving. Objective Data Objective Data Vital Signs: Vital Signs Temp Pulse Resp BP 98 F 67 18 139/71 H 02/28/23 11:20 02/28/23 11:20 02/28/23 11:20 02/28/23 11:20 Weight: 126 lb 12.519 oz Body Mass Index (BMI) 21.1 Charges/Coding Visit Charges Office Visits / Consults: 12700 OV L3 Est Physical Exam Const alert and oriented x3 General Appearance: cooperative and anxious Orientation / Consciousness: awake, oriented to person and oriented to place HEENT normocephalic Head and Scalp: atraumatic Neck full ROM Resp normal respiratory effort and normal air movement Effort and Inspection: able to speak in complete sentences Cardio regular rate and regular rhythm GI soft to palpation and non-tender Back/Spine normal ROM Extremity Extremity Narrative: Her right shoulder ROM is improving. She does not have full ROM of her right shoulder yet. Peripheral Pulses: Yes pulses 2+ throughout Skin Wound Narrative: Right axilla ulcer is healed. The scar tissue does pull with range of motion of her shoulder. Neuro oriented x3 Psych cooperative Psych Narrative: Patient is very anxious. Appearance: grossly normal Mood & Affect: anxious Debridement Note Debridement Note No debridement was completed: No debridement was completed today Post-Debridement Measurements and Additional Note: Post-Debridement Measurements/Treatment NASRA - Nurse 1 - General Ulcer Assessment Start: 02/28/23 11:19 Freq: Status: Active Protocol: JOSÉ Activity Type Activity Date Activity User E-sign Co-sign Detail Recorded Client Recorded Date Recorded By Document 02/28/23 11:20 DL [id number] 02/28/23 11:24 DL 02/28/23 11:20 WC - Today's Visit Information Type of service Follow-up Visit (Physician/PRIVATE BRANCH EXCHANGE SERVICE ADVISOR ) Arrival Mode Ambulatory Transfer Assistance None Patient Identification Verified (Name & Yes ) Patient Requires Transmission-Based No Precautions Height and Weight Body Mass Index (BMI) 21.1 BMI Classification Normal Vital Signs Temperature (97.8 F-99.1 F) 98 F Temperature Source Temporal Pulse Rate (60-100) 67 Pulse Location Monitor Respiratory Rate (12-18) 18 Respiratory rate source Observation Blood Pressure (90/60-120/80) 139/71 H Blood Pressure Mean (mm Hg) 93 Source Monitor History Since Last Visit- (Skip if this is Patient's initial visit) Have you changed medications since your No last visit? Any new allergies or adverse reactions No Had a fall/change in ADL's that may No increase risk of falls Signs or symptoms of abuse and/or No neglect since last visit Have you been in the hospital since your No last visit? Has dressing in place as prescribed Yes Has compression in place as prescribed N/A Has offloadiing in place as prescribed N/A Experienced any changes in pain level or No management Pain Scale: 0-10 Numeric Is Patient Pain Free? Yes NASRA - Nurse 1 - General Ulcer Measurement Start: 02/28/23 11:19 Freq: Status: Active Protocol: Activity Type Activity Date Activity User E-sign Co-sign Detail Recorded Client Recorded Date Recorded By Document 02/28/23 11:20 DL [id number] 02/28/23 11:24 DL 02/28/23 11:20 Wound Center Nurse 1 #1 R Axilla cluster -Current Size (cm) - Length 0 -Current Size (cm) - Width 0 -Total Square Cm 0 -Photo Taken Yes -Exudate Amt None Present -Granulation Amt Large (67-100%) -Granulation Quality [place] -Necrosis Amt None Present (0 %) -Structure Exposed N/A -Texture (Mariaelena-wound Skin Appearance) Scarring -Moisture (Mariaelena-wound Skin Appearance) No Abnormality -Color (Mariaelena-wound Skin Appearance) No Abnormality -Temperature (Mariaelena-wound Skin No Abnormality Appearance) (Pt Warm) -Tenderness on Palpation (Mariaelena-wound No Skin Appearance) -Ulcer Cleansing Rinsed/ Irrigated with Saline -Foul Odor after Cleansing No -Anesthetic Used 5% Lidocaine Gel - Nurse 2 - General Ulcer CM Notes Start: 02/28/23 11:19 Freq: Status: Active Protocol: Activity Type Activity Date Activity User E-sign Co-sign Detail Recorded Client Recorded Date Recorded By Document 02/28/23 11:52 [id number] 02/28/23 11:53 02/28/23 11:52 Wound Center Nurse 2 -Correct Patient No -Correct Side, Site, Position No -Correct Procedure No -Procedure Performed No -Post Debridement (cm) - Length 0 -Post Debridement (cm) - Width 0 -Post Debridement (cm) - Depth 0 -Total Square (Post) (cm) 0 -Area of Debridement (cm) - Length 0 -Area of Debridement (cm) - Width 0 -Total Square (Area) (cm) 0 -Wound/Ulcer Outcome Healed- Epithelialized Pain Scale: 0-10 Numeric Is Patient Pain Free? Yes - Nurse 3 - General Ulcer D/C NN Start: 02/28/23 11:19 Freq: Status: Active Protocol: Activity Type Activity Date Activity User E-sign Co-sign Detail Recorded Client Recorded Date Recorded By Document 02/28/23 11:54 [id number] 02/28/23 11:54 02/28/23 11:54 Is Patient Pain Free? Yes - Visit Discharge Discharge Condition Stable Ambulatory Status Ambulatory Transportation Private Auto Medication Reconcilliation completed & Yes provided to patient/care provider Clinical Summary of Care Provided Yes Assessment/Plan Assessment/Plan (1) Skin ulcer of axilla with fat layer exposed: CODE(S): L98.492 - Non-pressure chronic ulcer of skin of other sites with fat layer exposed (2) Right axillary hidradenitis: CODE(S): L73.2 - Hidradenitis suppurativa (3) Stiffness of right shoulder joint: CODE(S): M25.611 - Stiffness of right shoulder, not elsewhere classified PLAN: Plan Patient evaluated at the wound healing center today. Her right axilla ulcer is healed today. Encouraged her to massage the scar tissue with lotion 1-2 times daily to help soften the scarring. A wound culture was obtained on 02/07/23 and was positive for MSSA. She was initially started on Augmentin but then she said she was allergic to it (unsure of what her allergy is), her antibiotic was changed to Doxycycline. Operative culture shows MRSE. She completed the Linezolid. Encouraged range of motion of her right shoulder to help prevent her shoulder from getting stiff. She is doing PT at [facility] and she is starting to have improvement with her ROM. She is to continue PT until she is released. She is tolerating the Lexapro well and states that it is helping with her anxiety. She continues to be anxious. I spoke with the patient about doing counseling/therapy to help with her anxiety but has never called anyone. The social media designer from home health saw her last month and she gave her a list of counselors to try and get an appointment. Sandra did not want the social media designer to help her make phone calls to actually schedule an appointment. Sandra has not scheduled anything. I would like her to see her PCP for further evaluation of her anxiety and to take over the management of her medication. I spoke with her PCP, Nancy Gonzalez NP about her starting to manage Sandra's anxiety. I instructed Sandra to call an make an appointment. Nancy stated if she does not hear from Sandra in a couple weeks, she will have her office call Sandra to schedule an appoinment. She has returned to work. She states that she is able to do her job. Follow up after she completes PT. Call or come in sooner if have any concerns.
== END 2023-03-01 16:57 | disposition home or self-care (01) ==
LOC: WC 11:10
PROVIDERS: PCP Nurse Practitioner Family; Referring Provider Nurse Practitioner Family; Visit Provider Nurse Practitioner Family
DX: Z09 Encounter for follow-up examination after completed treatment for conditions other than malignant neoplasm (principal); M25.611 Stiffness of right shoulder, not elsewhere classified; L90.5 Scar conditions and fibrosis of skin; L30.9 Dermatitis, unspecified; Z79.899 Other long term (current) drug therapy
CPT/HCPCS: 99213; G0463

== ENCOUNTER 2023-03-12 16:18 | Outpatient (RCR) | payer OTHER, SELFPAY ==
[2023-03-12 16:19] VITALS: BP 134/75; PULSE 75; RESP 16; TEMP 36.3
--- NOTE | 2023-03-12 16:46 | PN.PCM_ITS ---
History of Present Illness Date of Service: 03/12/23 Chief Complaint: right axilla Hidradenitis excision History of Wound: 52 year old woman presents with increasing pain and redness and swelling right axilla that started a couple months ago. She has had I&D procedures by Dr. Arita. 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 She has a history of eczema and had been on Dupixent in the past. She thinks the eczema has worsened recently since the development of her right axillary hidradenitis. She saw a [employer] Supervisor for the eczema. Surgery 10/05/22 - Surgical preparation right axilla with excision hidradenitis (60 cm2). She was discharged on 10/06/22 with home health to assist with the wound VAC dressing changes 3 times per week. Operative cultures positive for Staphylococcus epidermidis. Wound culture obtained on 02/07/23 which was positive for MSSA. She was initially started on Augmentin but she claimed she was allergic to it, so it was changed to Doxycycline. Wound care is Aquacel-Ag slightly moistened covered with gauze. At present, she denies fever, chills, nausea, vomiting. Progress of Wound: Right axilla ulcer was healed but the ulcer reopened a few days after healing. She has pulling on the ulcer when she moves her shoulder, so her ulcer reopening is not surprising. The base is beefy pink and bleeds well with debridement. She is still in PT for her shoulder range of motion, which is slowly improving. Objective Data Objective Data Vital Signs: Vital Signs Temp Pulse Resp BP O2 Del Method 97.3 F L 75 16 134/75 H Room Air 03/12/23 16:19 03/12/23 16:19 03/12/23 16:19 03/12/23 16:19 03/12/23 16:19 Oxygen Delivery Method Room Air Charges/Coding Procedures Integumentary 111xxx-113xx: [id number] Ana subq tissue 20 sq cm/< Physical Exam Const alert and oriented x3 General Appearance: cooperative and anxious Orientation / Consciousness: awake, oriented to person and oriented to place HEENT normocephalic Head and Scalp: atraumatic Neck full ROM Resp normal respiratory effort and normal air movement Effort and Inspection: able to speak in complete sentences Cardio regular rate and regular rhythm GI soft to palpation and non-tender Back/Spine normal ROM Extremity Extremity Narrative: Her right shoulder ROM is improving. She does not have full ROM of her right shoulder yet. Peripheral Pulses: Yes pulses 2+ throughout Skin Wound Narrative: Right axilla ulcer has reopened, wound bed is beefy pink. No clinical sign of infection. Neuro oriented x3 Psych cooperative Psych Narrative: Patient is very anxious. Appearance: grossly normal Mood & Affect: anxious Debridement Note Debridement Note Wound debrided: Axilla wound Laterality: Right Wound Grade/Stage: Stage IV Type of Debridement: Excisional debridement Anesthesia Used: 4% Lidocaine Solution and 5% Lidocaine Gel Depth: Down to and including healthy tissue and in the subcutaneous layer Percentage of wound debrided: 100 Instrument Used: 5mm curette Tissue Removed: Devitalized tissue and slough. Severity: Fat Layer Exposed Amount of bleeding with debridement: Mild Bleeding Controlled with: Pressure and Compression and gauze Patient tolerated procedure: Patient tolerated procedure well Debridement Free Text: Post-Debridement Measurements and Additional Note: Post-Debridement Measurements/Treatment - Nurse 1 - General Ulcer Assessment Start: 03/12/23 16:19 Freq: Status: Active Protocol: JOSÉ Activity Type Activity Date Activity User E-sign Co-sign Detail Recorded Client Recorded Date Recorded By Document 03/12/23 16:19 [facility] Desktop 03/12/23 16:24 [facility] 03/12/23 16:19 - Today's Visit Information Type of service Follow-up Visit (Physician/DIRECTOR OF APPLICATION DEVELOPMENT ) Arrival Mode Ambulatory Transfer Assistance None Patient Identification Verified (Name & Yes ) Vital Signs Temperature (97.8 F-99.1 F) 97.3 F L Temperature Source Temporal Pulse Rate (60-100) 75 Pulse Location Monitor Respiratory Rate (12-18) 16 Respiratory rate source Observation Oxygen Delivery Method Room Air Blood Pressure (90/60-120/80) 134/75 H Blood Pressure Mean (mm Hg) 94 Source Monitor Position Sitting Blood Pressure Location Right Arm History Since Last Visit- (Skip if this is Patient's initial visit) Left Footwear Regular Shoe Right Footwear Regular Shoe Pain Scale: 0-10 Numeric Is Patient Pain Free? Yes - Nurse 1 - General Ulcer Measurement Start: 03/12/23 16:19 Freq: Status: Active Protocol: Activity Type Activity Date Activity User E-sign Co-sign Detail Recorded Client Recorded Date Recorded By Document 03/12/23 16:19 [facility] Desktop 03/12/23 16:24 [facility] 03/12/23 16:19 Wound Center Nurse 1 #1 R Axilla cluster -Combined with other wound No -Current Size (cm) - Length 1.7 -Current Size (cm) - Width 1.2 -Current Size (cm) - Depth 0.1 -Total Square Cm 2.04 -Date of Last Picture (Recall this 03/12/23 field) -Photo Taken Yes -Tunneling No -Undermining/Tunneling No -Circular Undermining No -Exudate Amt Medium -Exudate Type Serosanguineous -Wound Margin Flat & Intact -Granulation Amt Large (67-100%) -Granulation Quality [place] -Slough/Fibrin No -Necrosis Amt None Present (0 %) -Texture (Mariaelena-wound Skin Appearance) Assessed, Scarring,Rash -Moisture (Mariaelena-wound Skin Appearance) Assessed,Dry/ Scaly -Color (Mariaelena-wound Skin Appearance) Assessed -Temperature (Mariaelena-wound Skin No Abnormality Appearance) (Pt Warm) -Tenderness on Palpation (Mariaelena-wound Yes Skin Appearance) -Ulcer Cleansing Rinsed/ Irrigated with Saline -Foul Odor after Cleansing No -Anesthetic Used 5% Lidocaine Gel WC - Nurse 2 - General Ulcer CM Notes Start: 03/12/23 16:19 Freq: Status: Active Protocol: Activity Type Activity Date Activity User E-sign Co-sign Detail Recorded Client Recorded Date Recorded By Document 03/12/23 16:30 Desktop 03/12/23 16:37 03/12/23 16:30 Wound Center Nurse 2 -Time 16:30 -Correct Patient Yes -Correct Side, Site, Position Yes -Correct Procedure Yes -Procedure Performed Yes -Type of Procedure Debridement -Clinical Debridement Subcutaneous -Tissue Removed Subcutaneous -Post Debridement (cm) - Length 1.3 -Post Debridement (cm) - Width 1.4 -Post Debridement (cm) - Depth 0.1 -Total Square (Post) (cm) 1.82 -Area of Debridement (cm) - Length 1.3 -Area of Debridement (cm) - Width 1.4 -Total Square (Area) (cm) 1.82 -Tunneling No -Undermining/Tunneling No -Circular Undermining No -Wound/Ulcer Outcome Not Healed -Ulcer Cleansing Rinsed/ Irrigated with Saline -Foul Odor after Cleansing No -Bioengineered Tissue No -Bleeding Controlled with Pressure -Treatment Response Procedure Tolerated Well -Offloading No -Debridement - Subq, 1st 20sq cm Yes Pain Scale: 0-10 Numeric Is Patient Pain Free? Yes - Nurse 3 - General Ulcer D/C NN Start: 03/12/23 16:19 Freq: Status: Active Protocol: Activity Type Activity Date Activity User E-sign Co-sign Detail Recorded Client Recorded Date Recorded By Document 03/12/23 16:37 Desktop 03/12/23 16:38 03/12/23 16:37 Wound Care Center Nurse 3 #1 R Axilla cluster -Ulcer Cleansing Rinsed/ Irrigated with Saline -Foul Odor after Cleansing No -Primary Dressing Applied Aquacel AG 4x4 -Primary Dressing Covered/Secured with Dry Gauze, Secured with Tape -Aquacel AG 4x4 1 Pain Scale: 0-10 Numeric Is Patient Pain Free? Yes WC - Visit Discharge Discharge Condition Stable Ambulatory Status Ambulatory Transportation Private Auto Medication Reconcilliation completed & Yes provided to patient/care provider Clinical Summary of Care Provided Yes Assessment/Plan Assessment/Plan (1) Skin ulcer of axilla with fat layer exposed: CODE(S): L98.492 - Non-pressure chronic ulcer of skin of other sites with fat layer exposed (2) Right axillary hidradenitis: CODE(S): L73.2 - Hidradenitis suppurativa (3) Stiffness of right shoulder joint: CODE(S): M25.611 - Stiffness of right shoulder, not elsewhere classified PLAN: Plan Patient evaluated at the wound healing center today. Wound care - Her mother is helping with her dressing changes. Aquacel-Ag covered with gauze daily after washing with soap and water. She is wearing a single layer tubigrip on her right arm for compression. A wound culture was obtained on 02/07/23 and was positive for MSSA. She was initially started on Augmentin but then she said she was allergic to it (unsure of what her allergy is), her antibiotic was changed to Doxycycline. Operative culture shows MRSE. She completed the Linezolid. Encouraged range of motion of her right shoulder to help prevent her shoulder from getting stiff. She is doing PT at [facility]. She continues to have decreased shoulder ROM but it is starting to slightly improve. She is tolerating the Lexapro well and states that it is helping with her anxiety. She continues to be anxious. I spoke with the patient about doing counseling/therapy to help with her anxiety but has never called anyone. The social work therapist from home health saw her last month and she gave her a list of counselors to try and get an appointment. Sandra did not want the social work therapist to help her make phone calls to actually schedule an appointment. Sandra has not scheduled anything. I spoke with patient about seeing PCP. I also notified her PCP that Sandra needs to have her Lexapro/anxiety managed by her. She has returned to work. She states that she is able to do her job. Follow up one week. Call or come in sooner if have any concerns.
== END 2023-03-24 23:59 | disposition home or self-care (01) ==
LOC: WC 16:18
PROVIDERS: PCP Nurse Practitioner Family; Referring Provider Nurse Practitioner Family; Visit Provider Nurse Practitioner Family
DX: L98.492 Non-pressure chronic ulcer of skin of other sites with fat layer exposed (principal); L30.9 Dermatitis, unspecified; L73.2 Hidradenitis suppurativa; M25.611 Stiffness of right shoulder, not elsewhere classified; Z79.899 Other long term (current) drug therapy
CPT/HCPCS: 11042

== ENCOUNTER 2023-04-18 08:30 | Outpatient (RCR) | payer OTHER, SELFPAY ==
[2023-03-25 00:28] VITALS: BP 134/75; PULSE 75; RESP 16; TEMP 36.3
[2023-03-28 09:56] VITALS: BP 131/94; PULSE 74; RESP 18; TEMP 36.5
--- NOTE | 2023-03-28 10:25 | PCM.WC.PN ---
History of Present Illness Date of Service: 03/28/23 Chief Complaint: right axilla Hidradenitis excision History of Wound: 52 year old woman presents with increasing pain and redness and swelling right axilla that started a couple months ago. She has had I&D procedures by Dr. Arita. 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 She has a history of eczema and had been on Dupixent in the past. She thinks the eczema has worsened recently since the development of her right axillary hidradenitis. She saw a [employer] for the eczema. Surgery 10/05/22 - Surgical preparation right axilla with excision hidradenitis (60 cm2). She was discharged on 10/06/22 with home health to assist with the wound VAC dressing changes 3 times per week. Operative cultures positive for Staphylococcus epidermidis. Wound culture obtained on 02/07/23 which was positive for MSSA. She was initially started on Augmentin but she claimed she was allergic to it, so it was changed to Doxycycline. Wound care is Aquacel-Ag slightly moistened covered with gauze. At present, she denies fever, chills, nausea, vomiting. Progress of Wound: Right axilla ulcer was healed but the ulcer reopened a few days after healing. She has pulling on the ulcer when she moves her shoulder, so her ulcer reopening is not surprising. There is hypergranulation tissue present today. She states she has not followed up with her PCP as recommended. She also has stopped doing PT for her right shoulder. She is having stress related to her father's declining health/demential. Objective Data Objective Data Vital Signs: Vital Signs Temp Pulse Resp BP O2 Del Method 97.7 F L 74 18 131/94 H Room Air 03/28/23 09:56 03/28/23 09:56 03/28/23 09:56 03/28/23 09:56 03/28/23 09:56 Oxygen Delivery Method Room Air Charges/Coding Procedures Integumentary 111xxx-113xx: 17107 Ana subq tissue 20 sq cm/< Debridement Note Debridement Note Wound debrided: Axilla wound Laterality: Right Wound Grade/Stage: Stage IV Type of Debridement: Excisional debridement Anesthesia Used: 4% Lidocaine Solution and 5% Lidocaine Gel Depth: Down to and including healthy tissue and in the subcutaneous layer Percentage of wound debrided: 100 Instrument Used: 5mm curette Tissue Removed: Devitalized tissue and slough. Severity: Fat Layer Exposed Amount of bleeding with debridement: Mild Bleeding Controlled with: Pressure, Compression and gauze and Silver Nitrate (to help control the hyper-granulation tissue. ) Patient tolerated procedure: Patient tolerated procedure well Debridement Free Text: Post-Debridement Measurements and Additional Note: Post-Debridement Measurements/Treatment NASRA - Nurse 1 - General Ulcer Assessment Start: 03/28/23 09:55 Freq: Status: Active Protocol: JOSÉ Activity Type Activity Date Activity User E-sign Co-sign Detail Recorded Client Recorded Date Recorded By Document 03/28/23 09:56 KW Desktop 03/28/23 10:00 KW 03/28/23 09:56 NASRA - Today's Visit Information Type of service Follow-up Visit (Physician/HAND CUTTER APPRENTICE ) Arrival Mode Ambulatory Patient Identification Verified (Name & Yes ) Vital Signs Temperature (97.8 F-99.1 F) 97.7 F L Temperature Source Temporal Pulse Rate (60-100) 74 Pulse Location Monitor Respiratory Rate (12-18) 18 Respiratory rate source Observation Oxygen Delivery Method Room Air Blood Pressure (90/60-120/80) 131/94 H Blood Pressure Mean (mm Hg) 106 Source Monitor Position Sitting Blood Pressure Location Left Arm History Since Last Visit- (Skip if this is Patient's initial visit) Have you changed medications since your No last visit? Any new allergies or adverse reactions No Had a fall/change in ADL's that may No increase risk of falls Signs or symptoms of abuse and/or No neglect since last visit Have you been in the hospital since your No last visit? Has dressing in place as prescribed Yes Has compression in place as prescribed N/A Has offloadiing in place as prescribed N/A Experienced any changes in pain level or No management Left Footwear Regular Shoe Right Footwear Regular Shoe Pain Scale: 0-10 Numeric Is Patient Pain Free? Yes - Nurse 1 - General Ulcer Measurement Start: 03/28/23 09:55 Freq: Status: Active Protocol: Activity Type Activity Date Activity User E-sign Co-sign Detail Recorded Client Recorded Date Recorded By Document 03/28/23 09:56 KW [employer] 03/28/23 10:00 KW 03/28/23 09:56 Wound Center Nurse 1 #1 R Axilla cluster -Current Size (cm) - Length 1.7 -Current Size (cm) - Width 0.7 -Current Size (cm) - Depth 0.3 -Total Square Cm 1.19 -Exudate Amt Small -Exudate Type Serosanguineous -Wound Margin Distinct, Outline Attached -Granulation Amt Large (67-100%) -Granulation Quality [place],Red -Necrosis Amt Small (1-33%) -Necrotic Tissue Type Adherent Slough -Texture (Mariaelena-wound Skin Appearance) Assessed, Scarring -Moisture (Mariaelena-wound Skin Appearance) Assessed -Color (Mariaelena-wound Skin Appearance) Assessed, Erythema -Temperature (Mariaelena-wound Skin No Abnormality Appearance) (Pt Warm) -Tenderness on Palpation (Mariaelena-wound No Skin Appearance) -Ulcer Cleansing Rinsed/ Irrigated with Saline -Anesthetic Used 5% Lidocaine Gel Lower Limb Edema Present NA NASRA - Nurse 2 - General Ulcer CM Notes Start: 03/28/23 09:55 Freq: Status: Active Protocol: Activity Type Activity Date Activity User E-sign Co-sign Detail Recorded Client Recorded Date Recorded By Document 03/28/23 10:19 Laptop 03/28/23 10:22 03/28/23 10:19 Wound Center Nurse 2 #1 R Axilla cluster -Time 10:19 -Correct Patient Yes -Correct Side, Site, Position Yes -Correct Procedure Yes -Procedure Performed Yes -Type of Procedure Debridement -Clinical Debridement Subcutaneous -Tissue Removed Subcutaneous -Post Debridement (cm) - Length 1.9 -Post Debridement (cm) - Width 1.0 -Post Debridement (cm) - Depth 0.2 -Total Square (Post) (cm) 1.90 -Area of Debridement (cm) - Length 1.9 -Area of Debridement (cm) - Width 1.0 -Total Square (Area) (cm) 1.90 -Tunneling No -Undermining/Tunneling No -Circular Undermining No -Wound/Ulcer Outcome Not Healed -Ulcer Cleansing Rinsed/ Irrigated with Saline -Foul Odor after Cleansing No -Bioengineered Tissue No -Bleeding Controlled with Pressure,Silver Nitrate -Treatment Response Procedure Tolerated Well -Offloading No -Debridement - Subq, 1st 20sq cm Yes Pain Scale: 0-10 Numeric Is Patient Pain Free? Yes NASRA - Nurse 3 - General Ulcer D/C NN Start: 03/28/23 09:55 Freq: Status: Active Protocol: Activity Type Activity Date Activity User E-sign Co-sign Detail Recorded Client Recorded Date Recorded By Document 03/28/23 10: Laptop 03/28/23 10:23 03/28/23 10:22 Wound Care Center Nurse 3 #1 R Axilla cluster -Ulcer Cleansing Rinsed/ Irrigated with Saline -Foul Odor after Cleansing No -Primary Dressing Applied Aquacel AG 2x2 -Primary Dressing Covered/Secured with Dry Gauze, Secured with Tape -Aquacel AG 2x2 1 Pain Scale: 0-10 Numeric Is Patient Pain Free? Yes WC - Visit Discharge Discharge Condition Stable Ambulatory Status Ambulatory Transportation Private Auto Medication Reconcilliation completed & Yes provided to patient/care provider Clinical Summary of Care Provided Yes Assessment/Plan Assessment/Plan (1) Skin ulcer of axilla with fat layer exposed: CODE(S): L98.492 - Non-pressure chronic ulcer of skin of other sites with fat layer exposed (2) Right axillary hidradenitis: CODE(S): L73.2 - Hidradenitis suppurativa (3) Stiffness of right shoulder joint: CODE(S): M25.611 - Stiffness of right shoulder, not elsewhere classified PLAN: Plan Patient evaluated at the wound healing center today. Wound care - Aquacel-Ag covered with gauze daily after washing with soap and water. She is wearing a single layer tubigrip on her right arm for compression. A wound culture was obtained on 02/07/23 and was positive for MSSA. She was initially started on Augmentin but then she said she was allergic to it (unsure of what her allergy is), her antibiotic was changed to Doxycycline. Operative culture shows LONG. She completed the Linezolid. Encouraged range of motion of her right shoulder to help prevent her shoulder from getting stiff. She has not been going to PT at [facility]. Stressed to her the importance of going to therapy. She states that she has been doing her home exercises. She continues to have decreased shoulder ROM. Repeated that her ROM to her shoulder is more important and we will deal with the wound. She is tolerating the Lexapro well and states that it is helping with her anxiety. She continues to be anxious. I spoke with the patient about doing counseling/therapy to help with her anxiety but has never called anyone. The social sciences research scientist from home health saw her last month and she gave her a list of counselors to try and get an appointment. Sandra did not want the social sciences research scientist to help her make phone calls to actually schedule an appointment. Sandra has not scheduled anything. Sandra has not made an appointment for follow up with her PCP. She states that she will call today for an appointment. She has returned to work. She states that she is able to do her job. Follow up one week. Call or come in sooner if have any concerns.
[2023-04-02 13:23] VITALS: BP 116/73; PULSE 67; TEMP 36.1
[2023-04-04 08:11] VITALS: BP 122/90; PULSE 68; RESP 18; TEMP 36.3
[2023-04-11 08:27] VITALS: BP 130/88; PULSE 73; RESP 18; TEMP 36.2
--- NOTE | 2023-04-11 11:59 | PCM.WC.PN ---
History of Present Illness Date of Service: 04/11/23 Chief Complaint: right axilla Hidradenitis excision History of Wound: 52 year old woman presents with increasing pain and redness and swelling right axilla that started a couple months ago. She has had I&D procedures by Dr. Arita. She works in Housekeeping at [employer] and states she may be allergic to the chemicals used for cleaning. She has a history of eczema and had been on Dupixent in the past. She thinks the eczema has worsened recently since the development of her right axillary hidradenitis. She saw a Bread Dough Mixer for the eczema. Surgery 10/05/22 - Surgical preparation right axilla with excision hidradenitis (60 cm2). She was discharged on 10/06/22 with home health to assist with the wound VAC dressing changes 3 times per week. Operative cultures positive for Staphylococcus epidermidis. Wound culture obtained on 02/07/23 which was positive for MSSA. She was initially started on Augmentin but she claimed she was allergic to it, so it was changed to Doxycycline. Wound care is Aquacel-Ag slightly moistened covered with gauze. At present, she denies fever, chills, nausea, vomiting. Progress of Wound: Right axilla ulcer is slightly smaller. Not hypergranulated this visit. Mariaelena wound is dry and excoriated. She states she has not followed up with her PCP as recommended. Objective Data Objective Data Vital Signs: Vital Signs Temp Pulse Resp BP O2 Del Method 97.1 F L 73 18 130/88 H Room Air 04/11/23 08:27 04/11/23 08:27 04/11/23 08:27 04/11/23 08:27 04/11/23 08:27 Oxygen Delivery Method Room Air Charges/Coding Procedures Integumentary [id number]: [id number] Ana subq tissue 20 sq cm/< Debridement Note Debridement Note Wound debrided: Axilla wound Laterality: Right Wound Grade/Stage: Stage IV Type of Debridement: Excisional debridement Anesthesia Used: 4% Lidocaine Solution and 5% Lidocaine Gel Depth: Down to and including healthy tissue and in the subcutaneous layer Percentage of wound debrided: 100 Instrument Used: 5mm curette Tissue Removed: Devitalized tissue and slough. Severity: Fat Layer Exposed Amount of bleeding with debridement: Mild Bleeding Controlled with: Pressure and Compression and gauze Patient tolerated procedure: Patient tolerated procedure well Debridement Free Text: Post-Debridement Measurements and Additional Note: Post-Debridement Measurements/Treatment WC - Nurse 1 - General Ulcer Assessment Start: 03/28/23 09:55 Freq: Status: Active Protocol: JOSÉ Activity Type Activity Date Activity User E-sign Co-sign Detail Recorded Client Recorded Date Recorded By Document 03/28/23 09:56 KW Desktop 03/28/23 10:00 KW Document 04/02/23 13:23 GM Desktop 04/02/23 13:29 GM Document 04/04/23 08:11 KW Desktop 04/04/23 08:27 KW Document 04/11/23 08:27 KW Desktop 04/11/23 08:34 KW 03/28/23 04/02/23 04/04/23 09:56 13:23 08:11 WC - Today's Visit Information Type of service Follow-up Visit Nurse-only Nurse-only (Physician/REGIONAL AGRONOMIST Visit Visit ) Arrival Mode Ambulatory Ambulatory Ambulatory Transfer Assistance None Patient Identification Verified (Name & Yes Yes Yes ) Patient Requires Transmission-Based No Precautions Vital Signs Temperature (97.8 F-99.1 F) 97.7 F L 97.0 F L 97.4 F L Temperature Source Temporal Temporal Temporal Pulse Rate (60-100) 74 67 68 Pulse Location Monitor Monitor Monitor Respiratory Rate (12-18) 18 18 Respiratory rate source Observation Ausculation Oxygen Delivery Method Room Air Room Air Room Air Blood Pressure (90/60-120/80) 131/94 H 116/73 122/90 H Blood Pressure Mean (mm Hg) 106 87 100 Source Monitor Monitor Monitor Position Sitting Sitting Sitting Blood Pressure Location Left Arm Left Arm Left Arm History Since Last Visit- (Skip if this is Patient's initial visit) Have you changed medications since your No No No last visit? Any new allergies or adverse reactions No No No Had a fall/change in ADL's that may No No No increase risk of falls Signs or symptoms of abuse and/or No No No neglect since last visit Have you been in the hospital since your No No No last visit? Has dressing in place as prescribed Yes Yes Yes Has compression in place as prescribed N/A N/A N/A Has offloadiing in place as prescribed N/A N/A N/A Experienced any changes in pain level or No No No management Left Footwear Regular Shoe Regular Shoe Right Footwear Regular Shoe Regular Shoe Pain Scale: 0-10 Numeric Is Patient Pain Free? Yes Yes No 04/11/23 08:27 WC - Today's Visit Information Type of service Follow-up Visit (Physician/REGIONAL AGRONOMIST ) Arrival Mode Ambulatory Transfer Assistance Patient Identification Verified (Name & Yes ) Patient Requires Transmission-Based Precautions Vital Signs Temperature (97.8 F-99.1 F) 97.1 F L Temperature Source Temporal Pulse Rate (60-100) 73 Pulse Location Monitor Respiratory Rate (12-18) 18 Respiratory rate source Observation Oxygen Delivery Method Room Air Blood Pressure (90/60-120/80) 130/88 H Blood Pressure Mean (mm Hg) 102 Source Monitor Position Semi-Fowlers Blood Pressure Location Left Arm History Since Last Visit- (Skip if this is Patient's initial visit) Have you changed medications since your No last visit? Any new allergies or adverse reactions No Had a fall/change in ADL's that may No increase risk of falls Signs or symptoms of abuse and/or No neglect since last visit Have you been in the hospital since your No last visit? Has dressing in place as prescribed Yes Has compression in place as prescribed N/A Has offloadiing in place as prescribed N/A Experienced any changes in pain level or No management Left Footwear Regular Shoe Right Footwear Regular Shoe Pain Scale: 0-10 Numeric Is Patient Pain Free? Yes - Nurse 1 - General Ulcer Measurement Start: 03/28/23 09:55 Freq: Status: Active Protocol: Activity Type Activity Date Activity User E-sign Co-sign Detail Recorded Client Recorded Date Recorded By Document 03/28/23 09:56 KW Desktop 03/28/23 10:00 KW Document 04/02/23 13:23 Desktop 04/02/23 13:29 GM Document 04/04/23 08:11 KW Desktop 04/04/23 08:27 KW Document 04/11/23 08:27 KW Desktop 04/11/23 08:34 KW 03/28/23 04/02/23 04/04/23 09:56 13:23 08:11 Wound Center Nurse 1 #1 R Axilla cluster -Combined with other wound No -Current Size (cm) - Length 1.7 1.9 -Current Size (cm) - Width 0.7 0.7 -Current Size (cm) - Depth 0.3 0.2 -Total Square Cm 1.19 1.33 -Photo Taken No -Exudate Amt Small Small -Exudate Type Serosanguineous Serosanguineous -Wound Margin Distinct, Distinct, Outline Outline Attached Attached -Granulation Amt Large (67-100%) Large (67-100%) -Granulation [place],Red Red -Necrosis Amt Small (1-33%) -Necrotic Tissue Type Adherent Slough -Texture (Mariaelena-wound Skin Appearance) Assessed, Assessed,Rash Scarring -Moisture (Mariaelena-wound Skin Appearance) Assessed Assessed -Color (Mariaelena-wound Skin Appearance) Assessed, Assessed Erythema -Temperature (Mariaelena-wound Skin No Abnormality No Abnormality Appearance) (Pt Warm) (Pt Warm) -Tenderness on Palpation (Mariaelena-wound No Yes Skin Appearance) -Ulcer Cleansing Rinsed/ Rinsed/ Irrigated with Irrigated with Saline Saline -Foul Odor after Cleansing No -Anesthetic Used 5% Lidocaine Gel Lower Limb Edema Present SNOW 04/11/23 08:27 Wound Center Nurse 1 #1 R Axilla cluster -Combined with other wound -Current Size (cm) - Length 2.0 -Current Size (cm) - Width 0.9 -Current Size (cm) - Depth 0.2 -Total Square Cm 1.80 -Photo Taken -Exudate Amt Small -Exudate Type Serosanguineous -Wound Margin Distinct, Outline Attached -Granulation Amt Medium (34-66%) -Granulation Quality Red -Necrosis Amt -Necrotic Tissue Type -Texture (Mariaelena-wound Skin Appearance) Assessed,Rash -Moisture (Mariaelena-wound Skin Appearance) Assessed,Dry/ Scaly -Color (Mariaelena-wound Skin Appearance) Assessed, Erythema -Temperature (Mariaelena-wound Skin No Abnormality Appearance) (Pt Warm) -Tenderness on Palpation (Mariaelena-wound Yes Skin Appearance) -Ulcer Cleansing Rinsed/ Irrigated with Saline -Foul Odor after Cleansing No -Anesthetic Used 5% Lidocaine Gel Lower Limb Edema Present SNOW - Nurse 2 - General Ulcer CM Notes Start: 03/28/23 09:55 Freq: Status: Active Protocol: Activity Type Activity Date Activity User E-sign Co-sign Detail Recorded Client Recorded Date Recorded By Document 03/28/23 10:19 Laptop 03/28/23 10:22 Document 04/11/23 09:08 Laptop 04/11/23 09:09 JAIME Edit Result 04/11/23 09:08 JAIME (1) [id number] 04/11/23 11:18 JAIME (1) #1 R Axilla cluster - Post Debridement (cm) - Length => 1.4 - Post Debridement (cm) - Width => 0.9 - Post Debridement (cm) - Depth => 0.2 - Total Square (Post) (cm) => 1.26 - Area of Debridement (cm) - Length => 1.4 - Area of Debridement (cm) - Width => 0.9 - Total Square (Area) (cm) => 1.26 03/28/23 04/11/23 10:19 09:08 Wound Center Nurse 2 #1 R Axilla cluster -Time 10: 09:09 -Correct Patient Yes Yes -Correct Side, Site, Position Yes Yes -Correct Procedure Yes Yes -Procedure Performed Yes Yes -Type of Procedure Debridement Debridement -Clinical Debridement Subcutaneous Subcutaneous -Tissue Removed Subcutaneous Subcutaneous -Post Debridement (cm) - Length 1.9 1.4 -Post Debridement (cm) - Width 1.0 0.9 -Post Debridement (cm) - Depth 0.2 0.2 -Total Square (Post) (cm) 1.90 1.26 -Area of Debridement (cm) - Length 1.9 1.4 -Area of Debridement (cm) - Width 1.0 0.9 -Total Square (Area) (cm) 1.90 1.26 -Tunneling No No -Undermining/Tunneling No No -Circular Undermining No No -Wound/Ulcer Outcome Not Healed Not Healed -Ulcer Cleansing Rinsed/ Rinsed/ Irrigated with Irrigated with Saline Saline -Foul Odor after Cleansing No No -Bioengineered Tissue No No -Bleeding Controlled with Pressure,Silver Pressure Nitrate -Treatment Response Procedure Procedure Tolerated Well Tolerated Well -Offloading No No -Debridement - Subq, 1st 20sq cm Yes Yes Pain Scale: 0-10 Numeric Is Patient Pain Free? Yes Yes WC - Nurse 3 - General Ulcer D/C NN Start: 03/28/23 09:55 Freq: Status: Active Protocol: Activity Type Activity Date Activity User E-sign Co-sign Detail Recorded Client Recorded Date Recorded By Document 03/28/23 10:22 JAIME Laptop 03/28/23 10:23 Document 04/02/23 13:23 Desktop 04/02/23 13:29 Document 04/04/23 08:27 KW Desktop 04/04/23 08:28 Document 04/11/23 09:15 Laptop 04/11/23 09:15 03/28/23 04/02/23 04/04/23 10:22 13:23 08:27 Wound Care Center Nurse 3 #1 R Axilla cluster -Ulcer Cleansing Rinsed/ Rinsed/ Rinsed/ Irrigated with Irrigated with Irrigated with Saline Saline Saline -Foul Odor after Cleansing No No -Negative Pressure Wound Therapy N/A -Primary Dressing Applied Aquacel AG 2x2 Aquacel AG 2x2 Aquacel AG 2x2 -Primary Dressing Covered/Secured with Dry Gauze, Dry Gauze Dry Gauze, Secured with Secured with Tape Tape -Aquacel AG 2x2 1 1 1 -Promogran Janessa Matter Vital Signs Temperature (97.8 F-99.1 F) 97.0 F L Temperature Source Temporal Pulse Rate (60-100) 67 Pulse Location Monitor Oxygen Delivery Method Room Air Blood Pressure (90/60-120/80) 116/73 Blood Pressure Mean (mm Hg) 87 Source Monitor Position Sitting Blood Pressure Location Left Arm Pain Scale: 0-10 Numeric Is Patient Pain Free? Yes Yes Yes WC - Visit Discharge Discharge Condition Stable Stable Stable Ambulatory Status Ambulatory Ambulatory Ambulatory Transportation Private Auto Private Auto Private Auto Medication Reconcilliation completed & Yes No provided to patient/care provider Clinical Summary of Care Provided Yes Yes 04/11/23 09:15 Wound Care Center Nurse 3 #1 R Axilla cluster -Ulcer Cleansing Rinsed/ Irrigated with Saline -Foul Odor after Cleansing No -Negative Pressure Wound Therapy -Primary Dressing Applied Promogran Janessa Matter -Primary Dressing Covered/Secured with Dry Gauze, Secured with Tape -Aquacel AG 2x2 -Promogran Janessa Matter 1 Vital Signs Temperature (97.8 F-99.1 F) Temperature Source Pulse Rate (60-100) Pulse Location Oxygen Delivery Method Blood Pressure (90/60-120/80) Blood Pressure Mean (mm Hg) Source Position Blood Pressure Location Pain Scale: 0-10 Numeric Is Patient Pain Free? Yes WC - Visit Discharge Discharge Condition Stable Ambulatory Status Ambulatory Transportation Private Auto Medication Reconcilliation completed & Yes provided to patient/care provider Clinical Summary of Care Provided Yes Assessment/Plan Assessment/Plan (1) Skin ulcer of axilla with fat layer exposed: CODE(S): L98.492 - Non-pressure chronic ulcer of skin of other sites with fat layer exposed (2) Right axillary hidradenitis: CODE(S): L73.2 - Hidradenitis suppurativa (3) Stiffness of right shoulder joint: CODE(S): M25.611 - Stiffness of right shoulder, not elsewhere classified PLAN: Plan Patient evaluated at the wound healing center today. Wound care - Change to moistened Janessa covered with gauze daily after washing with soap and water. She is wearing a single layer tubigrip on her right arm for compression. A wound culture was obtained on 02/07/23 and was positive for MSSA. She was initially started on Augmentin but then she said she was allergic to it (unsure of what her allergy is), her antibiotic was changed to Doxycycline, which she completed. Operative culture shows LONG. She completed the Linezolid. Encouraged range of motion of her right shoulder to help prevent her shoulder from getting stiff. She has not been going to PT at [facility]. Stressed to her the importance of going to therapy. She states that she has been doing her home exercises. She continues to have decreased shoulder ROM. Repeated that her ROM to her shoulder is more important and we will deal with the wound. She is tolerating the Lexapro well and states that it is helping with her anxiety. She continues to be anxious. I spoke with the patient about doing counseling/therapy to help with her anxiety but has never called anyone. The social media project manager from [facility] saw her and she gave her a list of counselors to try and get an appointment. Sandra did not want the social media project manager to help her make phone calls to actually schedule an appointment. Sandra has not scheduled anything. Sandra still has not made an appointment for follow up with her PCP. She states that she will call today for an appointment. She has returned to work. She states that she is able to do her job. Follow up one week. Call or come in sooner if have any concerns.
[2023-04-18 08:22] VITALS: BP 131/80; PULSE 69; TEMP 35.9
--- NOTE | 2023-04-18 10:07 | PCM.WC.PN ---
History of Present Illness Date of Service: 04/18/23 Chief Complaint: right axilla Hidradenitis excision History of Wound: 52 year old woman presents with increasing pain and redness and swelling right axilla that started a couple months ago. She has had I&D procedures by Dr. Arita. 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 She has a history of eczema and had been on Dupixent in the past. She thinks the eczema has worsened recently since the development of her right axillary hidradenitis. She saw a Advertisement Distributor for the eczema. Surgery 10/05/22 - Surgical preparation right axilla with excision hidradenitis (60 cm2). She was discharged on 10/06/22 with home health to assist with the wound VAC dressing changes 3 times per week. Operative cultures positive for Staphylococcus epidermidis. Wound culture obtained on 02/07/23 which was positive for MSSA. She was initially started on Augmentin but she claimed she was allergic to it, so it was changed to Doxycycline. Wound care is Aquacel-Ag slightly moistened covered with gauze. At present, she denies fever, chills, nausea, vomiting. Progress of Wound: Right axilla ulcer is slightly smaller. Mariaelena wound is dry and excoriated. She followed up with her PCP, Naomi Wynn CNP, for medical management of her anxiety. Sandra states that she is going to help her find a counselor also. Objective Data Objective Data Vital Signs: Vital Signs Temp Pulse Resp BP O2 Del Method 96.7 F L 69 18 131/80 H Room Air 04/18/23 08:22 04/18/23 08:22 04/11/23 08:27 04/18/23 08:22 04/18/23 08:22 Oxygen Delivery Method Room Air Charges/Coding Procedures Integumentary 111xxx-113xx: 28421 Ana subq tissue 20 sq cm/< Debridement Note Debridement Note Wound debrided: Axilla wound Laterality: Right Wound Grade/Stage: Stage IV Type of Debridement: Excisional debridement Anesthesia Used: 4% Lidocaine Solution and 5% Lidocaine Gel Depth: Down to and including healthy tissue and in the subcutaneous layer Percentage of wound debrided: 100 Instrument Used: 3mm curette Tissue Removed: Devitalized tissue and slough. Severity: Fat Layer Exposed Amount of bleeding with debridement: Mild Bleeding Controlled with: Pressure and Compression and gauze Patient tolerated procedure: Patient tolerated procedure well Debridement Free Text: Post-Debridement Measurements and Additional Note: Post-Debridement Measurements/Treatment - Nurse 1 - General Ulcer Assessment Start: 03/28/23 09:55 Freq: Status: Active Protocol: NASRA.[place] Activity Type Activity Date Activity User E-sign Co-sign Detail Recorded Client Recorded Date Recorded By Document 03/28/23 09:56 KW Desktop 03/28/23 10:00 KW Document 04/02/23 13:23 GM Desktop 04/02/23 13:29 GM Document 04/04/23 08:11 KW Desktop 04/04/23 08:27 KW Document 04/11/23 08:27 KW Desktop 04/11/23 08:34 KW Document 04/18/23 08:22 GM Desktop 04/18/23 08:26 GM 03/28/23 04/02/23 04/04/23 09:56 13:23 08:11 - Today's Visit Information Type of service Follow-up Visit Nurse-only Nurse-only (Physician/GRAPHIC ARTIST Visit Visit ) Arrival Mode Ambulatory Ambulatory Ambulatory Transfer Assistance None Patient Identification Verified (Name & Yes Yes Yes ) Patient Requires Transmission-Based No Precautions Safety Precautions Vital Signs Temperature (97.8 F-99.1 F) 97.7 F L 97.0 F L 97.4 F L Temperature Source Temporal Temporal Temporal Pulse Rate (60-100) 74 67 68 Pulse Location Monitor Monitor Monitor Respiratory Rate (12-18) 18 18 Respiratory rate source Observation Ausculation Oxygen Delivery Method Room Air Room Air Room Air Blood Pressure (90/60-120/80) 131/94 H 116/73 122/90 H Blood Pressure Mean (mm Hg) 106 87 100 Source Monitor Monitor Monitor Position Sitting Sitting Sitting Blood Pressure Location Left Arm Left Arm Left Arm History Since Last Visit- (Skip if this is Patient's initial visit) Have you changed medications since your No No No last visit? Any new allergies or adverse reactions No No No Had a fall/change in ADL's that may No No No increase risk of falls Signs or symptoms of abuse and/or No No No neglect since last visit Have you been in the hospital since your No No No last visit? Has dressing in place as prescribed Yes Yes Yes Has compression in place as prescribed N/A N/A N/A Has offloadiing in place as prescribed N/A N/A N/A Experienced any changes in pain level or No No No management Left Footwear Regular Shoe Regular Shoe Right Footwear Regular Shoe Regular Shoe Pain Scale: 0-10 Numeric Is Patient Pain Free? Yes Yes No 04/11/23 04/18/23 08:27 08:22 - Today's Visit Information Type of service Follow-up Visit Follow-up Visit (Physician/GRAPHIC ARTIST (Physician/GRAPHIC ARTIST ) ) Arrival Mode Ambulatory Ambulatory Transfer Assistance None Patient Identification Verified (Name & Yes Yes ) Patient Requires Transmission-Based No Precautions Safety Precautions NA Vital Signs Temperature (97.8 F-99.1 F) 97.1 F L 96.7 F L Temperature Source Temporal Temporal Pulse Rate (60-100) 73 69 Pulse Location Monitor Monitor Respiratory Rate (12-18) 18 Respiratory rate source Observation Oxygen Delivery Method Room Air Room Air Blood Pressure (90/60-120/80) 130/88 H 131/80 H Blood Pressure Mean (mm Hg) 102 97 Source Monitor Monitor Position Semi-Fowlers Sitting Blood Pressure Location Left Arm History Since Last Visit- (Skip if this is Patient's initial visit) Have you changed medications since your No No last visit? Any new allergies or adverse reactions No No Had a fall/change in ADL's that may No No increase risk of falls Signs or symptoms of abuse and/or No No neglect since last visit Have you been in the hospital since your No No last visit? Has dressing in place as prescribed Yes Yes Has compression in place as prescribed N/A N/A Has offloadiing in place as prescribed N/A N/A Experienced any changes in pain level or No No management Left Footwear Regular Shoe Right Footwear Regular Shoe Pain Scale: 0-10 Numeric Is Patient Pain Free? Yes Yes - Nurse 1 - General Ulcer Measurement Start: 03/28/23 09:55 Freq: Status: Active Protocol: Activity Type Activity Date Activity User E-sign Co-sign Detail Recorded Client Recorded Date Recorded By Document 03/28/23 09:56 KW Desktop 03/28/23 10:00 KW Document 04/02/23 13:23 Desktop 04/02/23 13:29 GM Document 04/04/23 08:11 KW Desktop 04/04/23 08:27 KW Document 04/11/23 08:27 KW Desktop 04/11/23 08:34 Document 04/18/23 08:22 Desktop 04/18/23 08:26 03/28/23 04/02/23 04/04/23 09:56 13:23 08:11 Wound Center Nurse 1 #1 R Axilla cluster -Combined with other wound No -Current Size (cm) - Length 1.7 1.9 -Current Size (cm) - Width 0.7 0.7 -Current Size (cm) - Depth 0.3 0.2 -Total Square Cm 1.19 1.33 -Photo Taken No -Epithelialization -Tunneling -Undermining/Tunneling -Circular Undermining -Exudate Amt Small Small -Exudate Type Serosanguineous Serosanguineous -Wound Margin Distinct, Distinct, Outline Outline Attached Attached -Granulation Amt Large (67-100%) Large (67-100%) -Granulation Quality [place],Red Red -Slough/Fibrin -Necrosis Amt Small (1-33%) -Necrotic Tissue Type Adherent Slough -Structure Exposed -Texture (Mariaelena-wound Skin Appearance) Assessed, Assessed,Rash Scarring -Moisture (Mariaelena-wound Skin Appearance) Assessed Assessed -Color (Mariaelena-wound Skin Appearance) Assessed, Assessed Erythema -Temperature (Mariaelena-wound Skin No Abnormality No Abnormality Appearance) (Pt Warm) (Pt Warm) -Tenderness on Palpation (Mariaelena-wound No Yes Skin Appearance) -Ulcer Cleansing Rinsed/ Rinsed/ Irrigated with Irrigated with Saline Saline -Foul Odor after Cleansing No -Anesthetic Used 5% Lidocaine Gel Lower Limb Edema Present NA 04/11/23 04/18/23 08:27 08:22 Wound Center Nurse 1 #1 R Axilla cluster -Combined with other wound No -Current Size (cm) - Length 2.0 0.6 -Current Size (cm) - Width 0.9 0.9 -Current Size (cm) - Depth 0.2 0.1 -Total Square Cm 1.80 0.54 -Photo Taken No -Epithelialization Small 1-33% -Tunneling No -Undermining/Tunneling No -Circular Undermining No -Exudate Amt Small Small -Exudate Type Serosanguineous Serosanguineous -Wound Margin Distinct, Distinct, Outline Outline Attached Attached -Granulation Amt Medium (34-66%) Large (67-100%) -Granulation Quality Red Hyper- granulation -Slough/Fibrin No -Necrosis Amt -Necrotic Tissue Type -Structure Exposed N/A -Texture (Mariaelena-wound Skin Appearance) Assessed,Rash Assessed -Moisture (Mariaelena-wound Skin Appearance) Assessed,Dry/ Assessed Scaly -Color (Mariaelena-wound Skin Appearance) Assessed, Assessed Erythema -Temperature (Mariaelena-wound Skin No Abnormality Appearance) (Pt Warm) -Tenderness on Palpation (Mariaelena-wound Yes Skin Appearance) -Ulcer Cleansing Rinsed/ Rinsed/ Irrigated with Irrigated with Saline Saline -Foul Odor after Cleansing No No -Anesthetic Used 5% Lidocaine Gel Lower Limb Edema Present NA WC - Nurse 2 - General Ulcer CM Notes Start: 03/28/23 09:55 Freq: Status: Active Protocol: Activity Type Activity Date Activity User E-sign Co-sign Detail Recorded Client Recorded Date Recorded By Document 03/28/23 10:19 Laptop 03/28/23 10:22 Document 04/11/23 09:08 Laptop 04/11/23 09:09 Edit Result 04/11/23 09:08 (1) [id number] 04/11/23 11:18 Document 04/18/23 08:48 Laptop 04/18/23 08:49 (1) #1 R Axilla cluster - Post Debridement (cm) - Length => 1.4 - Post Debridement (cm) - Width => 0.9 - Post Debridement (cm) - Depth => 0.2 - Total Square (Post) (cm) => 1.26 - Area of Debridement (cm) - Length => 1.4 - Area of Debridement (cm) - Width => 0.9 - Total Square (Area) (cm) => 1.26 03/28/23 04/11/23 04/18/23 10:19 09:08 08:48 Wound Center Nurse 2 #1 R Axilla cluster -Time 10: 09:09 08:48 -Correct Patient Yes Yes Yes -Correct Side, Site, Position Yes Yes Yes -Correct Procedure Yes Yes Yes -Procedure Performed Yes Yes Yes -Type of Procedure Debridement Debridement Debridement -Clinical Debridement Subcutaneous Subcutaneous Subcutaneous -Tissue Removed Subcutaneous Subcutaneous Subcutaneous -Post Debridement (cm) - Length 1.9 1.4 1.5 -Post Debridement (cm) - Width 1.0 0.9 0.5 -Post Debridement (cm) - Depth 0.2 0.2 0.1 -Total Square (Post) (cm) 1.90 1.26 0.75 -Area of Debridement (cm) - Length 1.9 1.4 1.5 -Area of Debridement (cm) - Width 1.0 0.9 0.5 -Total Square (Area) (cm) 1.90 1.26 0.75 -Tunneling No No No -Undermining/Tunneling No No No -Circular Undermining No No No -Wound/Ulcer Outcome Not Healed Not Healed Not Healed -Ulcer Cleansing Rinsed/ Rinsed/ Rinsed/ Irrigated with Irrigated with Irrigated with Saline Saline Saline -Foul Odor after Cleansing No No No -Bioengineered Tissue No No No -Bleeding Controlled with Pressure,Silver Pressure Pressure Nitrate -Treatment Response Procedure Procedure Procedure Tolerated Well Tolerated Well Tolerated Well -Offloading No No No -Debridement - Subq, 1st 20sq cm Yes Yes Yes Pain Scale: 0-10 Numeric Is Patient Pain Free? Yes Yes Yes - Nurse 3 - General Ulcer D/C NN Start: 03/28/23 09:55 Freq: Status: Active Protocol: Activity Type Activity Date Activity User E-sign Co-sign Detail Recorded Client Recorded Date Recorded By Document 03/28/23 10:22 Laptop 03/28/23 10:23 Document 04/02/23 13:23 Desktop 04/02/23 13:29 Document 04/04/23 08:27 Desktop 04/04/23 08:28 Document 04/11/23 09:15 Laptop 04/11/23 09:15 Document 04/18/23 08:56 [facility] Desktop 04/18/23 08:56 [facility] 03/28/23 04/02/23 04/04/23 10:22 13:23 08:27 Wound Care Center Nurse 3 #1 R Axilla cluster -Ulcer Cleansing Rinsed/ Rinsed/ Rinsed/ Irrigated with Irrigated with Irrigated with Saline Saline Saline -Foul Odor after Cleansing No No -Negative Pressure Wound Therapy N/A -Primary Dressing Applied Aquacel AG 2x2 Aquacel AG 2x2 Aquacel AG 2x2 -Primary Dressing Covered/Secured with Dry Gauze, Dry Gauze Dry Gauze, Secured with Secured with Tape Tape -Aquacel AG 2x2 1 1 1 -Promogran Janessa Matter Treatment Response Vital Signs Temperature (97.8 F-99.1 F) 97.0 F L Temperature Source Temporal Pulse Rate (60-100) 67 Pulse Location Monitor Oxygen Delivery Method Room Air Blood Pressure (90/60-120/80) 116/73 Blood Pressure Mean (mm Hg) 87 Source Monitor Position Sitting Blood Pressure Location Left Arm Pain Scale: 0-10 Numeric Is Patient Pain Free? Yes Yes Yes WC - Visit Discharge Discharge Condition Stable Stable Stable Ambulatory Status Ambulatory Ambulatory Ambulatory Transportation Private Auto Private Auto Private Auto Medication Reconcilliation completed & Yes No provided to patient/care provider Clinical Summary of Care Provided Yes Yes 04/11/23 04/18/23 09:15 08:56 Wound Care Center Nurse 3 #1 R Axilla cluster -Ulcer Cleansing Rinsed/ Rinsed/ Irrigated with Irrigated with Saline Saline -Foul Odor after Cleansing No No -Negative Pressure Wound Therapy -Primary Dressing Applied Promogran Promogran Janessa Matter Janessa Matter -Primary Dressing Covered/Secured with Dry Gauze, Dry Gauze, Secured with Secured with Tape Tape -Aquacel AG 2x2 -Promogran Janessa Matter 1 1 Treatment Response Procedure Tolerated Well Vital Signs Temperature (97.8 F-99.1 F) Temperature Source Pulse Rate (60-100) Pulse Location Oxygen Delivery Method Blood Pressure (90/60-120/80) Blood Pressure Mean (mm Hg) Source Position Blood Pressure Location Pain Scale: 0-10 Numeric Is Patient Pain Free? Yes Yes WC - Visit Discharge Discharge Condition Stable Stable Ambulatory Status Ambulatory Ambulatory Transportation Private Auto Private Auto Medication Reconcilliation completed & Yes provided to patient/care provider Clinical Summary of Care Provided Yes Assessment/Plan Assessment/Plan (1) Skin ulcer of axilla with fat layer exposed: CODE(S): L98.492 - Non-pressure chronic ulcer of skin of other sites with fat layer exposed (2) Right axillary hidradenitis: CODE(S): L73.2 - Hidradenitis suppurativa (3) Stiffness of right shoulder joint: CODE(S): M25.611 - Stiffness of right shoulder, not elsewhere classified PLAN: Plan Patient evaluated at the wound healing center today. Wound care - Change to moistened Janessa covered with gauze daily after washing with soap and water. She is wearing a single layer tubigrip on her right arm for compression. A wound culture was obtained on 02/07/23 and was positive for MSSA. She was initially started on Augmentin but then she said she was allergic to it (unsure of what her allergy is), her antibiotic was changed to Doxycycline, which she completed. Operative culture shows LONG. She completed the Linezolid. Encouraged range of motion of her right shoulder to help prevent her shoulder from getting stiff. She has not been going to PT at [facility]. Stressed to her the importance of going to therapy. She states that she has been doing her home exercises. She continues to have decreased shoulder ROM. Repeated that her ROM to her shoulder is more important and we will deal with the wound. She has followed up with her PCP and her medication has changed and her PCP is going to help her find a counselor to help with her anxiety. She has returned to work. She states that she is able to do her job. Follow up one week. Call or come in sooner if have any concerns.
== END 2023-04-24 23:59 | disposition home or self-care (01) ==
LOC: WC 08:30
PROVIDERS: PCP Nurse Practitioner Family; Referring Provider Nurse Practitioner Family; Visit Provider Nurse Practitioner Family
DX: L98.492 Non-pressure chronic ulcer of skin of other sites with fat layer exposed (principal); L73.2 Hidradenitis suppurativa; M25.611 Stiffness of right shoulder, not elsewhere classified; L30.9 Dermatitis, unspecified; F41.9 Anxiety disorder, unspecified; Z79.899 Other long term (current) drug therapy
CPT/HCPCS: 11042; 99211; G0463

== ENCOUNTER 2023-05-21 08:30 | Outpatient (RCR) | payer OTHER, SELFPAY ==
[2023-04-25 00:43] VITALS: BP 131/80; PULSE 69; RESP 18; TEMP 35.9
[2023-05-02 08:08] VITALS: BP 133/67; PULSE 65; TEMP 36.3
--- NOTE | 2023-05-02 16:08 | PN.PCM_ITS ---
History of Present Illness Date of Service: 05/02/23 Chief Complaint: right axilla Hidradenitis excision History of Wound: 52 year old woman presents with increasing pain and redness and swelling right axilla that started a couple months ago. She has had I&D procedures by Dr. Arita. 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 She has a history of eczema and had been on Dupixent in the past. She thinks the eczema has worsened recently since the development of her right axillary hidradenitis. She saw a Electrical Assembly Supervisor for the eczema. Surgery 10/05/22 - Surgical preparation right axilla with excision hidradenitis (60 cm2). She was discharged on 10/06/22 with home health to assist with the wound VAC dressing changes 3 times per week. Operative cultures positive for Staphylococcus epidermidis. Wound culture obtained on 02/07/23 which was positive for MSSA. She was initially started on Augmentin but she claimed she was allergic to it, so it was changed to Doxycycline. Wound care is Aquacel- slightly moistened covered with gauze. At present, she denies fever, chills, nausea, vomiting. Progress of Wound: Right axilla ulcer with hypergranulation tissue present. Mariaelena wound is excoriated from the tape. Objective Data Objective Data Vital Signs: Vital Signs Temp Pulse Resp BP O2 Del Method 97.3 F L 65 18 133/67 H Room Air 05/02/23 08:08 05/02/23 08:08 04/25/23 00:43 05/02/23 08:08 05/02/23 08:08 Oxygen Delivery Method Room Air Charges/Coding Procedures Integumentary 111xxx-113xx: 62049 Ana subq tissue 20 sq cm/< Debridement Note Debridement Note Wound debrided: Axilla wound Laterality: Right Wound Grade/Stage: Stage IV Type of Debridement: Excisional debridement Anesthesia Used: 4% Lidocaine Solution and 5% Lidocaine Gel Depth: Down to and including healthy tissue and in the subcutaneous layer Percentage of wound debrided: 100 Instrument Used: 3mm curette Tissue Removed: Devitalized tissue and slough. Severity: Fat Layer Exposed Amount of bleeding with debridement: Mild Bleeding Controlled with: Pressure, Compression and gauze and Silver Nitrate Patient tolerated procedure: Patient tolerated procedure well Debridement Free Text: Post-Debridement Measurements and Additional Note: Post-Debridement Measurements/Treatment - Nurse 1 - General Ulcer Assessment Start: 05/02/23 08:08 Freq: Status: Active Protocol: JOSÉ Activity Type Activity Date Activity User E-sign Co-sign Detail Recorded Client Recorded Date Recorded By Document 05/02/23 08:08 Desktop 05/02/23 08:15 05/02/23 08:08 - Today's Visit Information Type of service Follow-up Visit (Physician/ENVELOPE SEALING MACHINE OPERATOR ) Arrival Mode Ambulatory Transfer Assistance None Patient Identification Verified (Name & Yes ) Patient Requires Transmission-Based No Precautions Safety Precautions NA Vital Signs Temperature (97.8 F-99.1 F) 97.3 F L Temperature Source Temporal Pulse Rate (60-100) 65 Pulse Location Monitor Oxygen Delivery Method Room Air Blood Pressure (90/60-120/80) 133/67 H Blood Pressure Mean (mm Hg) 89 Source Monitor Position Supine Blood Pressure Location Left Arm History Since Last Visit- (Skip if this is Patient's initial visit) Have you changed medications since your No last visit? Any new allergies or adverse reactions No Had a fall/change in ADL's that may No increase risk of falls Signs or symptoms of abuse and/or No neglect since last visit Have you been in the hospital since your No last visit? Has dressing in place as prescribed Yes Has compression in place as prescribed N/A Has offloadiing in place as prescribed N/A Pain Scale: 0-10 Numeric Is Patient Pain Free? Yes - Nurse 1 - General Ulcer Measurement Start: 05/02/23 08:08 Freq: Status: Active Protocol: Activity Type Activity Date Activity User E-sign Co-sign Detail Recorded Client Recorded Date Recorded By Document 05/02/23 08:08 Desktop 05/02/23 08:15 05/02/23 08:08 Wound Center Nurse 1 #1 R Axilla cluster -Combined with other wound No -Current Size (cm) - Length 1.0 -Current Size (cm) - Width 1.0 -Current Size (cm) - Depth 0.1 -Total Square Cm 1.00 -Date of Last Picture (Recall this 05/02/23 field) -Photo Taken Yes -Epithelialization Small 1-33% -Tunneling No -Undermining/Tunneling No -Circular Undermining No -Exudate Amt Medium -Exudate Type Serous -Wound Margin Distinct, Outline Attached -Granulation Amt Large (67-100%) -Granulation Quality Red -Necrosis Amt Small (1-33%) -Necrotic Tissue Type Adherent Slough -Texture (Mariaelena-wound Skin Appearance) Assessed -Moisture (Mariaelena-wound Skin Appearance) Assessed -Color (Mariaelena-wound Skin Appearance) Assessed -Temperature (Mariaelena-wound Skin No Abnormality Appearance) (Pt Warm) -Tenderness on Palpation (Mariaelena-wound Yes Skin Appearance) -Ulcer Cleansing Rinsed/ Irrigated with Saline -Foul Odor after Cleansing No -Anesthetic Used 5% Lidocaine Gel NASRA - Nurse 2 - General Ulcer CM Notes Start: 05/02/23 08:08 Freq: Status: Active Protocol: Activity Type Activity Date Activity User E-sign Co-sign Detail Recorded Client Recorded Date Recorded By Document 05/02/23 08:49 Laptop 05/02/23 08:50 05/02/23 08:49 Wound Center Nurse 2 -Time 08:49 -Correct Patient Yes -Correct Side, Site, Position Yes -Correct Procedure Yes -Procedure Performed Yes -Type of Procedure Debridement -Clinical Debridement Subcutaneous -Tissue Removed Subcutaneous -Post Debridement (cm) - Length 1.3 -Post Debridement (cm) - Width 1.0 -Post Debridement (cm) - Depth 0.1 -Total Square (Post) (cm) 1.30 -Area of Debridement (cm) - Length 1.3 -Area of Debridement (cm) - Width 1.0 -Total Square (Area) (cm) 1.30 -Tunneling No -Undermining/Tunneling No -Circular Undermining No -Wound/Ulcer Outcome Not Healed -Ulcer Cleansing Rinsed/ Irrigated with Saline -Foul Odor after Cleansing No -Bioengineered Tissue No -Bleeding Controlled with Pressure -Treatment Response Procedure Tolerated Well -Offloading No -Debridement - Subq, 1st 20sq cm Yes Pain Scale: 0-10 Numeric Is Patient Pain Free? Yes NASRA - Nurse 3 - General Ulcer D/C NN Start: 05/02/23 08:08 Freq: Status: Active Protocol: Activity Type Activity Date Activity User E-sign Co-sign Detail Recorded Client Recorded Date Recorded By Document 05/02/23 08:57 Desktop 05/02/23 08:59 05/02/23 08:57 Wound Care Center Nurse 3 #1 R Axilla cluster -Ulcer Cleansing Not Cleansed -Foul Odor after Cleansing No -Primary Dressing Applied Promogran -Primary Dressing Covered/Secured with Dry Gauze, Secured with Tape -Promogran 1 Pain Scale: 0-10 Numeric Is Patient Pain Free? Yes Teaching: Wound Center Dressing Your Wound -Person Taught Patient -Teaching Method Discussion, Demonstration -Response to teaching Verbalize understanding WC - Visit Discharge Discharge Condition Stable Ambulatory Status Ambulatory Transportation Private Auto Medication Reconcilliation completed & Yes provided to patient/care provider Clinical Summary of Care Provided Yes Assessment/Plan Assessment/Plan (1) Skin ulcer of axilla with fat layer exposed: CODE(S): L98.492 - Non-pressure chronic ulcer of skin of other sites with fat layer exposed (2) Right axillary hidradenitis: CODE(S): L73.2 - Hidradenitis suppurativa (3) Stiffness of right shoulder joint: CODE(S): M25.611 - Stiffness of right shoulder, not elsewhere classified PLAN: Plan Patient evaluated at the wound healing center today. Silver nitrate used on the hypergranulation tissue. Wound care - Change to moistened Janessa covered with gauze daily after washing with soap and water. Can place hydrocortisone to the mariaelena wound to help with the excoriation. She is wearing a single layer tubigrip on her right arm for compression. A wound culture was obtained on 02/07/23 and was positive for MSSA. She was initially started on Augmentin but then she said she was allergic to it (unsure of what her allergy is), her antibiotic was changed to Doxycycline, which she completed. Operative culture shows LONG. She completed the Linezolid. Encouraged range of motion of her right shoulder to help prevent her shoulder from getting stiff. She has not been going to PT at [facility]. Stressed to her the importance of going to therapy. She states that she has been doing her home exercises. She continues to have decreased shoulder ROM. Repeated that her ROM to her shoulder is more important and we will deal with the wound. She has followed up with her PCP and her medication has changed and her PCP is going to help her find a counselor to help with her anxiety. She has returned to work. She states that she is able to do her job. Follow up two weeks. Call or come in sooner if have any concerns.
[2023-05-09 12:55] VITALS: BP 148/85; PULSE 85; RESP 16; TEMP 35.6
[2023-05-14 09:04] VITALS: BP 135/73; PULSE 70; RESP 18; TEMP 36.3
--- NOTE | 2023-05-14 10:59 | PN.PCM_ITS ---
History of Present Illness Date of Service: 05/14/23 Chief Complaint: right axilla Hidradenitis excision History of Wound: 52 year old woman presents with increasing pain and redness and swelling right axilla that started a couple months ago. She has had I&D procedures by Dr. Arita. She works in Housekeeping at [employer] and states she may be allergic to the chemicals used for cleaning. She has a history of eczema and had been on Dupixent in the past. She thinks the eczema has worsened recently since the development of her right axillary hidradenitis. She saw a Compliance Quality Performance Analyst for the eczema. Surgery 10/05/22 - Surgical preparation right axilla with excision hidradenitis (60 cm2). She was discharged on 10/06/22 with home health to assist with the wound VAC dressing changes 3 times per week. Operative cultures positive for Staphylococcus epidermidis. Wound culture obtained on 02/07/23 which was positive for MSSA. She was initially started on Augmentin but she claimed she was allergic to it, so it was changed to Doxycycline. Wound care is Aquacel-Ag slightly moistened covered with gauze. At present, she denies fever, chills, nausea, vomiting. Progress of Wound: Right axilla ulcer is much smaller this week but still has hypergranulation tissue present. Mariaelena wound excoriation has improved. She is using OTC hydrocortisone 1% cream. Objective Data Objective Data Vital Signs: Vital Signs Temp Pulse Resp BP O2 Del Method 97.3 F L 70 18 135/73 H Room Air 05/14/23 09:04 05/14/23 09:04 05/14/23 09:04 05/14/23 09:04 05/09/23 12:55 Oxygen Delivery Method Room Air Charges/Coding Procedures Integumentary [id number]: [id number] Ana subq tissue 20 sq cm/< Debridement Note Debridement Note Wound debrided: Axilla ulcer Laterality: Right Wound Grade/Stage: Stage IV Type of Debridement: Excisional debridement Anesthesia Used: 4% Lidocaine Solution and 5% Lidocaine Gel Depth: Down to and including healthy tissue and in the subcutaneous layer Percentage of wound debrided: 100 Instrument Used: 3mm curette Tissue Removed: Devitalized tissue and slough. Severity: Fat Layer Exposed Amount of bleeding with debridement: Mild Bleeding Controlled with: Pressure, Compression and gauze and Silver Nitrate Patient tolerated procedure: Patient tolerated procedure well Debridement Free Text: Post-Debridement Measurements and Additional Note: Post-Debridement Measurements/Treatment - Nurse 1 - General Ulcer Assessment Start: 05/02/23 08:08 Freq: Status: Active Protocol: JOSÉ Activity Type Activity Date Activity User E-sign Co-sign Detail Recorded Client Recorded Date Recorded By Document 05/02/23 08:08 GM Desktop 05/02/23 08:15 GM Document 05/09/23 12:55 BMF Desktop 05/09/23 12:56 BMF Document 05/14/23 09:04 DL Desktop 05/14/23 09:09 DL 05/02/23 05/09/23 05/14/23 08:08 12:55 09:04 - Today's Visit Information Type of service Follow-up Visit Nurse-only Follow-up Visit (Physician/UNDERGRADUATE ADVISOR Visit (Physician/UNDERGRADUATE ADVISOR ) ) Arrival Mode Ambulatory Ambulatory Ambulatory Transfer Assistance None None None Patient Identification Verified (Name & Yes Yes Yes ) Patient Requires Transmission-Based No No No Precautions Safety Precautions NA Vital Signs Temperature (97.8 F-99.1 F) 97.3 F L 96.1 F L 97.3 F L Temperature Source Temporal Temporal Temporal Pulse Rate (60-100) 65 85 70 Pulse Location Monitor Monitor Monitor Respiratory Rate (12-18) 16 18 Respiratory rate source Observation Observation Oxygen Delivery Method Room Air Room Air Blood Pressure (90/60-120/80) 133/67 H 148/85 H 135/73 H Blood Pressure Mean (mm Hg) 89 106 93 Source Monitor Monitor Monitor Position Supine Sitting Blood Pressure Location Left Arm Left Arm History Since Last Visit- (Skip if this is Patient's initial visit) Have you changed medications since your No No No last visit? Any new allergies or adverse reactions No No No Had a fall/change in ADL's that may No No No increase risk of falls Signs or symptoms of abuse and/or No No No neglect since last visit Have you been in the hospital since your No No No last visit? Has dressing in place as prescribed Yes Yes Yes Has compression in place as prescribed N/A N/A N/A Has offloadiing in place as prescribed N/A N/A N/A Experienced any changes in pain level or No management Left Footwear Regular Shoe Right Footwear Regular Shoe Pain Scale: 0-10 Numeric Is Patient Pain Free? Yes Yes Yes WC - Nurse 1 - General Ulcer Measurement Start: 05/02/23 08:08 Freq: Status: Active Protocol: Activity Type Activity Date Activity User E-sign Co-sign Detail Recorded Client Recorded Date Recorded By Document 05/02/23 08:08 GM Desktop 05/02/23 08:15 GM Document 05/14/23 09:04 DL Desktop 05/14/23 09:09 DL 05/02/23 05/14/23 08:08 09:04 Wound Center Nurse 1 #1 R Axilla cluster -Combined with other wound No -Current Size (cm) - Length 1.0 0.7 -Current Size (cm) - Width 1.0 0.7 -Current Size (cm) - Depth 0.1 0.1 -Total Square Cm 1.00 0.49 -Date of Last Picture (Recall this 05/02/23 field) -Photo Taken Yes -Epithelialization Small 1-33% -Tunneling No -Undermining/Tunneling No -Circular Undermining No -Exudate Amt Medium None Present -Exudate Type Serous -Wound Margin Distinct, Distinct, Outline Outline Attached Attached -Granulation Amt Large (67-100%) Large (67-100%) -Granulation Quality Red Anza -Necrosis Amt Small (1-33%) None Present (0 %) -Necrotic Tissue Type Adherent Slough -Structure Exposed N/A -Texture (Mariaelena-wound Skin Appearance) Assessed Scarring -Moisture (Mariaelena-wound Skin Appearance) Assessed Dry/Scaly -Color (Mariaeelna-wound Skin Appearance) Assessed No Abnormality -Temperature (Mariaelena-wound Skin No Abnormality No Abnormality Appearance) (Pt Warm) (Pt Warm) -Tenderness on Palpation (Mariaelena-wound Yes No Skin Appearance) -Ulcer Cleansing Rinsed/ Rinsed/ Irrigated with Irrigated with Saline Saline -Foul Odor after Cleansing No No -Anesthetic Used 5% Lidocaine 5% Lidocaine Gel Gel WC - Nurse 2 - General Ulcer CM Notes Start: 05/02/23 08:08 Freq: Status: Active Protocol: Activity Type Activity Date Activity User E-sign Co-sign Detail Recorded Client Recorded Date Recorded By Document 05/02/23 08:49 Laptop 05/02/23 08:50 Document 05/14/23 09:25 Laptop 05/14/23 09:26 05/02/23 05/14/23 08:49 09:25 Wound Center Nurse 2 #1 R Axilla cluster -Time 08:49 09:26 -Correct Patient Yes Yes -Correct Side, Site, Position Yes Yes -Correct Procedure Yes Yes -Procedure Performed Yes Yes -Type of Procedure Debridement Debridement -Clinical Debridement Subcutaneous Subcutaneous -Tissue Removed Subcutaneous Subcutaneous -Post Debridement (cm) - Length 1.3 0.6 -Post Debridement (cm) - Width 1.0 0.6 -Post Debridement (cm) - Depth 0.1 0.1 -Total Square (Post) (cm) 1.30 0.36 -Area of Debridement (cm) - Length 1.3 0.6 -Area of Debridement (cm) - Width 1.0 0.6 -Total Square (Area) (cm) 1.30 0.36 -Tunneling No No -Undermining/Tunneling No No -Circular Undermining No No -Wound/Ulcer Outcome Not Healed Not Healed -Ulcer Cleansing Rinsed/ Rinsed/ Irrigated with Irrigated with Saline Saline -Foul Odor after Cleansing No No -Bioengineered Tissue No No -Bleeding Controlled with Pressure Pressure,Silver Nitrate -Treatment Response Procedure Procedure Tolerated Well Tolerated Well -Offloading No No -Debridement - Subq, 1st 20sq cm Yes Yes Pain Scale: 0-10 Numeric Is Patient Pain Free? Yes Yes - Nurse 3 - General Ulcer D/C NN Start: 05/02/23 08:08 Freq: Status: Active Protocol: Activity Type Activity Date Activity User E-sign Co-sign Detail Recorded Client Recorded Date Recorded By Document 05/02/23 08:57 Desktop 05/02/23 08:59 Document 05/09/23 12:55 [facility] Desktop 05/09/23 12:56 [facility] Document 05/14/23 09:37 [facility] Desktop 05/14/23 09:37 [facility] 05/02/23 05/09/23 05/14/23 08:57 12:55 09:37 Wound Care Center Nurse 3 #1 R Axilla cluster -Ulcer Cleansing Not Cleansed Rinsed/ Rinsed/ Irrigated with Irrigated with Saline Saline -Foul Odor after Cleansing No No No -Primary Dressing Applied Promogran Promogran Promogran Janessa Matter Janessa Matter -Primary Dressing Covered/Secured with Dry Gauze, Dry Gauze, Dry Gauze, Secured with Secured with Secured with Tape Tape Tape -Promogran 1 -Promogran Janessa Matter 1 1 Treatment Response Procedure Procedure Tolerated Well Tolerated Well Vital Signs Temperature (97.8 F-99.1 F) 96.1 F L Temperature Source Temporal Pulse Rate (60-100) 85 Pulse Location Monitor Respiratory Rate (12-18) 16 Respiratory rate source Observation Oxygen Delivery Method Room Air Blood Pressure (90/60-120/80) 148/85 H Blood Pressure Mean (mm Hg) 106 Source Monitor Position Sitting Blood Pressure Location Left Arm Pain Scale: 0-10 Numeric Is Patient Pain Free? Yes Yes Yes Teaching: Wound Center Dressing Your Wound -Person Taught Patient -Teaching Method Discussion, Demonstration -Response to teaching Verbalize understanding WC - Visit Discharge Discharge Condition Stable Stable Stable Ambulatory Status Ambulatory Ambulatory Ambulatory Transportation Private Auto Private Auto Private Auto Medication Reconcilliation completed & Yes provided to patient/care provider Clinical Summary of Care Provided Yes Assessment/Plan Assessment/Plan (1) Skin ulcer of axilla with fat layer exposed: CODE(S): L98.492 - Non-pressure chronic ulcer of skin of other sites with fat layer exposed (2) Right axillary hidradenitis: CODE(S): L73.2 - Hidradenitis suppurativa (3) Stiffness of right shoulder joint: CODE(S): M25.611 - Stiffness of right shoulder, not elsewhere classified PLAN: Plan Patient evaluated at the wound healing center today. Silver nitrate used on the hypergranulation tissue. Wound care - Moistened Janessa covered with gauze daily after washing with soap and water. Continue to place hydrocortisone to the mariaelena wound to help with the excoriation. She is wearing a single layer tubigrip on her right arm for compression. A wound culture was obtained on 02/07/23 and was positive for MSSA. She was initially started on Augmentin but then she said she was allergic to it (unsure of what her allergy is), her antibiotic was changed to Doxycycline, which she completed. Operative culture shows LONG. She completed the Linezolid. Encouraged range of motion of her right shoulder to help prevent her shoulder from getting stiff. She has not been going to PT at [facility]. Stressed to her the importance of going to therapy. She states that she has been doing her home exercises. She continues to have decreased shoulder ROM. Repeated that her ROM to her eli ulder is more important and we will deal with the wound. She has followed up with her PCP and her medication has changed and her PCP is going to help her find a counselor to help with her anxiety. She has returned to work. She states that she is able to do her job. Follow up one week. Call or come in sooner if have any concerns.
[2023-05-21 08:14] VITALS: BP 127/78; PULSE 68; RESP 18; TEMP 36.4
--- NOTE | 2023-05-21 08:54 | PCM.WC.PN ---
History of Present Illness Date of Service: 05/21/23 Chief Complaint: right axilla Hidradenitis excision History of Wound: 52 year old woman presents with increasing pain and redness and swelling right axilla that started a couple months ago. She has had I&D procedures by Dr. Arita. 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 She has a history of eczema and had been on Dupixent in the past. She thinks the eczema has worsened recently since the development of her right axillary hidradenitis. She saw a Water Supervisor for the eczema. Surgery 10/05/22 - Surgical preparation right axilla with excision hidradenitis (60 cm2). She was discharged on 10/06/22 with home health to assist with the wound VAC dressing changes 3 times per week. Operative cultures positive for Staphylococcus epidermidis. Wound culture obtained on 02/07/23 which was positive for MSSA. She was initially started on Augmentin but she claimed she was allergic to it, so it was changed to Doxycycline. [facility] slightly moistened covered with gauze. At present, she denies fever, chills, nausea, vomiting. Progress of Wound: Right axilla ulcer is stable, there is hypergranulation tissue present, but not as much as last week. Mariaelena wound excoriation is much improved. She is using OTC hydrocortisone 1% cream and using silicone tape. Objective Data Objective Data Vital Signs: Vital Signs Temp Pulse Resp BP O2 Del Method 97.5 F L 68 18 127/78 H Room Air 05/21/23 08:14 05/21/23 08:14 05/21/23 08:14 05/21/23 08:14 05/21/23 08:14 Oxygen Delivery Method Room Air Charges/Coding Procedures Integumentary [id number]: [id number] Ana subq tissue 20 sq cm/< Debridement Note Debridement Note Wound debrided: Axilla ulcer Laterality: Right Wound Grade/Stage: Stage IV Type of Debridement: Excisional debridement Anesthesia Used: 4% Lidocaine Solution and 5% Lidocaine Gel Depth: Down to and including healthy tissue and in the subcutaneous layer Percentage of wound debrided: 100 Instrument Used: 3mm curette Tissue Removed: Devitalized tissue and slough. Severity: Fat Layer Exposed Amount of bleeding with debridement: Mild Bleeding Controlled with: Pressure, Compression and gauze and Silver Nitrate Patient tolerated procedure: Patient tolerated procedure well Debridement Free Text: Post-Debridement Measurements and Additional Note: Post-Debridement Measurements/Treatment WC - Nurse 1 - General Ulcer Assessment Start: 05/02/23 08:08 Freq: Status: Active Protocol: JOSÉ Activity Type Activity Date Activity User E-sign Co-sign Detail Recorded Client Recorded Date Recorded By Document 05/02/23 08:08 GM Desktop 05/02/23 08:15 GM Document 05/09/23 12:55 BMF Desktop 05/09/23 12:56 BMF Document 05/14/23 09:04 DL Desktop 05/14/23 09:09 DL Document 05/21/23 08:14 GM Desktop 05/21/23 08:21 05/02/23 05/09/23 05/14/23 08:08 12:55 09:04 - Today's Visit Information Type of service Follow-up Visit Nurse-only Follow-up Visit (Physician/DIFFERENTIAL SPECIALIST Visit (Physician/DIFFERENTIAL SPECIALIST ) ) Arrival Mode Ambulatory Ambulatory Ambulatory Transfer Assistance None None None Patient Identification Verified (Name & Yes Yes Yes ) Patient Requires Transmission-Based No No No Precautions Safety Precautions NA Vital Signs Temperature (97.8 F-99.1 F) 97.3 F L 96.1 F L 97.3 F L Temperature Source Temporal Temporal Temporal Pulse Rate (60-100) 65 85 70 Pulse Location Monitor Monitor Monitor Respiratory Rate (12-18) 16 18 Respiratory rate source Observation Observation Oxygen Delivery Method Room Air Room Air Blood Pressure (90/60-120/80) 133/67 H 148/85 H 135/73 H Blood Pressure Mean (mm Hg) 89 106 93 Source Monitor Monitor Monitor Position Supine Sitting Blood Pressure Location Left Arm Left Arm History Since Last Visit- (Skip if this is Patient's initial visit) Have you changed medications since your No No No last visit? Any new allergies or adverse reactions No No No Had a fall/change in ADL's that may No No No increase risk of falls Signs or symptoms of abuse and/or No No No neglect since last visit Have you been in the hospital since your No No No last visit? Has dressing in place as prescribed Yes Yes Yes Has compression in place as prescribed N/A N/A N/A Has offloadiing in place as prescribed N/A N/A N/A Experienced any changes in pain level or No management Left Footwear Regular Shoe Right Footwear Regular Shoe Pain Scale: 0-10 Numeric Is Patient Pain Free? Yes Yes Yes 05/21/23 08:14 - Today's Visit Information Type of service Follow-up Visit (Physician/DIFFERENTIAL SPECIALIST ) Arrival Mode Ambulatory Transfer Assistance Patient Identification Verified (Name & Yes ) Patient Requires Transmission-Based No Precautions Safety Precautions Fall Prevention Vital Signs Temperature (97.8 F-99.1 F) 97.5 F L Temperature Source Temporal Pulse Rate (60-100) 68 Pulse Location Monitor Respiratory Rate (12-18) 18 Respiratory rate source Observation Oxygen Delivery Method Room Air Blood Pressure (90/60-120/80) 127/78 H Blood Pressure Mean (mm Hg) 94 Source Monitor Position Sitting Blood Pressure Location History Since Last Visit- (Skip if this is Patient's initial visit) Have you changed medications since your No last visit? Any new allergies or adverse reactions No Had a fall/change in ADL's that may No increase risk of falls Signs or symptoms of abuse and/or neglect since last visit Have you been in the hospital since your No last visit? Has dressing in place as prescribed Yes Has compression in place as prescribed N/A Has offloadiing in place as prescribed N/A Experienced any changes in pain level or No management Left Footwear Right Footwear Pain Scale: 0-10 Numeric Is Patient Pain Free? Yes - Nurse 1 - General Ulcer Measurement Start: 05/02/23 08:08 Freq: Status: Active Protocol: Activity Type Activity Date Activity User E-sign Co-sign Detail Recorded Client Recorded Date Recorded By Document 05/02/23 08:08 Desktop 05/02/23 08:15 Document 05/14/23 09:04 DL Desktop 05/14/23 09:09 DL Document 05/21/23 08:14 Desktop 05/21/23 08:21 05/02/23 05/14/23 05/21/23 08:08 09:04 08:14 Wound Center Nurse 1 #1 R Axilla cluster -Combined with other wound No -Current Size (cm) - Length 1.0 0.7 -Current Size (cm) - Width 1.0 0.7 -Current Size (cm) - Depth 0.1 0.1 -Total Square Cm 1.00 0.49 -Date of Last Picture (Recall this 05/02/23 field) -Photo Taken Yes No -Epithelialization Small 1-33% Large 67-100% -Tunneling No No -Undermining/Tunneling No No -Circular Undermining No No -Exudate Amt Medium None Present None Present -Exudate Type Serous -Wound Margin Distinct, Distinct, Distinct, Outline Outline Outline Attached Attached Attached -Granulation Amt Large (67-100%) Large (67-100%) Large (67-100%) -Granulation Quality Red [place] Red -Necrosis Amt Small (1-33%) None Present (0 %) -Necrotic Tissue Type Adherent Slough -Structure Exposed N/A -Texture (Mariaelena-wound Skin Appearance) Assessed Scarring Assessed -Moisture (Mariaelena-wound Skin Appearance) Assessed Dry/Scaly Assessed -Color (Mariaelena-wound Skin Appearance) Assessed No Abnormality Assessed -Temperature (Mariaelena-wound Skin No Abnormality No Abnormality No Abnormality Appearance) (Pt Warm) (Pt Warm) (Pt Warm) -Tenderness on Palpation (Mariaelena-wound Yes No No Skin Appearance) -Ulcer Cleansing Rinsed/ Rinsed/ Rinsed/ Irrigated with Irrigated with Irrigated with Saline Saline Saline -Foul Odor after Cleansing No No -Anesthetic Used 5% Lidocaine 5% Lidocaine 5% Lidocaine Gel Gel Gel WC - Nurse 2 - General Ulcer CM Notes Start: 05/02/23 08:08 Freq: Status: Active Protocol: Activity Type Activity Date Activity User E-sign Co-sign Detail Recorded Client Recorded Date Recorded By Document 05/02/23 08:49 Laptop 05/02/23 08:50 Document 05/14/23 09:25 Laptop 05/14/23 09:26 Document 05/21/23 08:46 Laptop 05/21/23 08:47 05/02/23 05/14/23 05/21/23 08:49 09:25 08:46 Wound Center Nurse 2 #1 R Axilla cluster -Time 08:49 09:26 08:46 -Correct Patient Yes Yes Yes -Correct Side, Site, Position Yes Yes Yes -Correct Procedure Yes Yes Yes -Procedure Performed Yes Yes Yes -Type of Procedure Debridement Debridement Debridement -Clinical Debridement Subcutaneous Subcutaneous Subcutaneous -Tissue Removed Subcutaneous Subcutaneous Subcutaneous -Post Debridement (cm) - Length 1.3 0.6 1.1 -Post Debridement (cm) - Width 1.0 0.6 0.8 -Post Debridement (cm) - Depth 0.1 0.1 0.1 -Total Square (Post) (cm) 1.30 0.36 0.88 -Area of Debridement (cm) - Length 1.3 0.6 1.1 -Area of Debridement (cm) - Width 1.0 0.6 0.8 -Total Square (Area) (cm) 1.30 0.36 0.88 -Tunneling No No No -Undermining/Tunneling No No No -Circular Undermining No No No -Wound/Ulcer Outcome Not Healed Not Healed Not Healed -Ulcer Cleansing Rinsed/ Rinsed/ Rinsed/ Irrigated with Irrigated with Irrigated with Saline Saline Saline -Foul Odor after Cleansing No No No -Bioengineered Tissue No No No -Bleeding Controlled with Pressure Pressure,Silver Pressure Nitrate -Treatment Response Procedure Procedure Procedure Tolerated Well Tolerated Well Tolerated Well -Offloading No No No -Debridement - Subq, 1st 20sq cm Yes Yes Yes Pain Scale: 0-10 Numeric Is Patient Pain Free? Yes Yes Yes WC - Nurse 3 - General Ulcer D/C NN Start: 05/02/23 08:08 Freq: Status: Active Protocol: Activity Type Activity Date Activity User E-sign Co-sign Detail Recorded Client Recorded Date Recorded By Document 05/02/23 08:57 Desktop 05/02/23 08:59 Document 05/09/23 12:55 [facility] Desktop 05/09/23 12:56 [facility] Document 05/14/23 09:37 [facility] Desktop 05/14/23 09:37 [facility] Document 05/21/23 08:47 Laptop 05/21/23 08:47 05/02/23 05/09/23 05/14/23 08:57 12:55 09:37 Wound Care Center Nurse 3 #1 R Axilla cluster -Ulcer Cleansing Not Cleansed Rinsed/ Rinsed/ Irrigated with Irrigated with Saline Saline -Foul Odor after Cleansing No No No -Primary Dressing Applied Promogran Promogran Promogran Janessa Matter Janessa Matter -Primary Dressing Covered/Secured with Dry Gauze, Dry Gauze, Dry Gauze, Secured with Secured with Secured with Tape Tape Tape -Promogran 1 -Promogran Janessa Matter 1 1 Treatment Response Procedure Procedure Tolerated Well Tolerated Well Vital Signs Temperature (97.8 F-99.1 F) 96.1 F L Temperature Source Temporal Pulse Rate (60-100) 85 Pulse Location Monitor Respiratory Rate (12-18) 16 Respiratory rate source Observation Oxygen Delivery Method Room Air Blood Pressure (90/60-120/80) 148/85 H Blood Pressure Mean (mm Hg) 106 Source Monitor Position Sitting Blood Pressure Location Left Arm Pain Scale: 0-10 Numeric Is Patient Pain Free? Yes Yes Yes Teaching: Wound Center Dressing Your Wound -Person Taught Patient -Teaching Method Discussion, Demonstration -Response to teaching Verbalize understanding WC - Visit Discharge Discharge Condition Stable Stable Stable Ambulatory Status Ambulatory Ambulatory Ambulatory Transportation Private Auto Private Auto Private Auto Medication Reconcilliation completed & Yes provided to patient/care provider Clinical Summary of Care Provided Yes 05/21/23 08:47 Wound Care Center Nurse 3 #1 R Axilla cluster -Ulcer Cleansing Rinsed/ Irrigated with Saline -Foul Odor after Cleansing No -Primary Dressing Applied Promogran Janessa Matter -Primary Dressing Covered/Secured with Dry Gauze -Promogran -Promogran Janessa Matter 1 Treatment Response Vital Signs Temperature (97.8 F-99.1 F) Temperature Source Pulse Rate (60-100) Pulse Location Respiratory Rate (12-18) Respiratory rate source Oxygen Delivery Method Blood Pressure (90/60-120/80) Blood Pressure Mean (mm Hg) Source Position Blood Pressure Location Pain Scale: 0-10 Numeric Is Patient Pain Free? Yes Teaching: Wound Center Dressing Your Wound -Person Taught -Teaching Method -Response to teaching WC - Visit Discharge Discharge Condition Stable Ambulatory Status Ambulatory Transportation Private Auto Medication Reconcilliation completed & Yes provided to patient/care provider Clinical Summary of Care Provided Yes Assessment/Plan Assessment/Plan (1) Skin ulcer of axilla with fat layer exposed: CODE(S): L98.492 - Non-pressure chronic ulcer of skin of other sites with fat layer exposed (2) Right axillary hidradenitis: CODE(S): L73.2 - Hidradenitis suppurativa (3) Stiffness of right shoulder joint: CODE(S): M25.611 - Stiffness of right shoulder, not elsewhere classified PLAN: Plan Patient evaluated at the wound healing center today. Silver nitrate used on the hypergranulation tissue. Wound care - Moistened Janessa covered with gauze daily after washing with soap and water. She has been using silicone tape, which has helped with her mariaelena wound excoriation. Continue to place hydrocortisone to the mariaelena wound to help with the excoriation. She is wearing a single layer tubigrip on her right arm for compression. A wound culture was obtained on 02/07/23 and was positive for MSSA. She was initially started on Augmentin but then she said she was allergic to it (unsure of what her allergy is), her antibiotic was changed to Doxycycline, which she completed. Operative culture shows LONG. She completed the Linezolid. Encouraged range of motion of her right shoulder to help prevent her shoulder from getting stiff. She has not been going to PT at [facility]. Stressed to her the importance of going to therapy. She states that she has been doing her home exercises. She continues to have decreased shoulder ROM. Repeated that her ROM to her shoulder is more important and we will deal with the wound. She has followed up with her PCP and her medication has changed and her PCP is going to help her find a counselor to help with her anxiety. She has returned to work. She states that she is able to do her job. Follow up one week. Call or come in sooner if have any concerns.
== END 2023-05-24 23:59 | disposition home or self-care (01) ==
LOC: WC 08:30
PROVIDERS: PCP Nurse Practitioner Family; Referring Provider Nurse Practitioner Family; Visit Provider Nurse Practitioner Family
DX: L98.492 Non-pressure chronic ulcer of skin of other sites with fat layer exposed (principal); L30.9 Dermatitis, unspecified; L73.2 Hidradenitis suppurativa; M25.611 Stiffness of right shoulder, not elsewhere classified; Z79.899 Other long term (current) drug therapy
CPT/HCPCS: 11042; 99211; G0463

== ENCOUNTER 2023-06-04 08:30 | Outpatient (RCR) | payer OTHER, SELFPAY ==
[2023-05-25 00:20] VITALS: BP 127/78; PULSE 68; RESP 18; TEMP 36.4
[2023-05-28 08:19] VITALS: BP 125/63; PULSE 69; RESP 16; TEMP 36.1
[2023-06-04 08:21] VITALS: BP 129/89; PULSE 90; RESP 16; TEMP 35.9
--- NOTE | 2023-06-04 11:06 | PN.PCM_ITS ---
History of Present Illness Date of Service: 06/04/23 Chief Complaint: right axilla Hidradenitis excision History of Wound: 52 year old woman presents with increasing pain and redness and swelling right axilla that started a couple months ago. She has had I&D procedures by Dr. Arita. 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 She has a history of eczema and had been on Dupixent in the past. She thinks the eczema has worsened recently since the development of her right axillary hidradenitis. She saw a Sweater Operator for the eczema. Surgery 10/05/22 - Surgical preparation right axilla with excision hidradenitis (60 cm2). She was discharged on 10/06/22 with home health to assist with the wound VAC dressing changes 3 times per week. Operative cultures positive for Staphylococcus epidermidis. Wound culture obtained on 02/07/23 which was positive for MSSA. She was initially started on Augmentin but she claimed she was allergic to it, so it was changed to Doxycycline. Wound care is Aquacel-Ag slightly moistened covered with gauze. At present, she denies fever, chills, nausea, vomiting. Progress of Wound: Right axilla ulcer is healed today! Objective Data Objective Data Vital Signs: Vital Signs Temp Pulse Resp BP O2 Del Method 96.6 F L 90 16 129/89 H Room Air 06/04/23 08:21 06/04/23 08:21 06/04/23 08:21 06/04/23 08:21 06/04/23 08:21 Oxygen Delivery Method Room Air Charges/Coding Visit Charges Office Visits / Consults: [id number] OV L3 Est Physical Exam Const alert, oriented x3 and no apparent distress HEENT normocephalic Eyes General Eye: normal appearance of both eyes Resp normal respiratory effort Effort and Inspection: able to speak in complete sentences Cardio regular rate and regular rhythm Extremity normal capillary refill Extremity Narrative: Right shoulder still does not have full range of motion. Skin Wound Narrative: Right axilla ulcer is healed. The healed scarring is dry. Neuro CN's II-XII intact bilaterally Psych cooperative Psych Narrative: She is anxious but that is her normal baseline. Appearance: appropriate and well kempt Debridement Note Debridement Note No debridement was completed: No debridement was completed today Post-Debridement Measurements and Additional Note: Post-Debridement Measurements/Treatment - Nurse 1 - General Ulcer Assessment Start: 05/28/23 08:19 Freq: Status: Active Protocol: JOSÉ Activity Type Activity Date Activity User E-sign Co-sign Detail Recorded Client Recorded Date Recorded By Document 05/28/23 08:[address] [facility] Desktop 05/28/23 08:20 BMF Document 06/04/23 08:21 BMF Desktop 06/04/23 08:23 BMF 05/28/23 06/04/23 08:19 08:21 - Today's Visit Information Type of service Nurse-only Follow-up Visit Visit (Physician/CUSTOMS AND BORDER PROTECTION INSPECTOR ) Arrival Mode Ambulatory Ambulatory Transfer Assistance None None Patient Identification Verified (Name & Yes Yes ) Patient Requires Transmission-Based No No Precautions Vital Signs Temperature (97.8 F-99.1 F) 96.9 F L 96.6 F L Temperature Source Temporal Temporal Pulse Rate (60-100) 69 90 Pulse Location Monitor Monitor Respiratory Rate (12-18) 16 16 Respiratory rate source Observation Observation Oxygen Delivery Method Room Air Room Air Blood Pressure (90/60-120/80) 125/63 H 129/89 H Blood Pressure Mean (mm Hg) 83 102 Source Monitor Monitor Position Sitting Blood Pressure Location Left Arm Left Arm History Since Last Visit- (Skip if this is Patient's initial visit) Have you changed medications since your No No last visit? Any new allergies or adverse reactions No No Had a fall/change in ADL's that may No No increase risk of falls Signs or symptoms of abuse and/or No No neglect since last visit Have you been in the hospital since your No No last visit? Has dressing in place as prescribed Yes Yes Has compression in place as prescribed N/A N/A Has offloadiing in place as prescribed N/A N/A Experienced any changes in pain level or No No management Left Footwear Regular Shoe Regular Shoe Right Footwear Regular Shoe Regular Shoe Pain Scale: 0-10 Numeric Is Patient Pain Free? Yes Yes [facility] Nurse 1 - General Ulcer Measurement Start: 05/28/23 08:19 Freq: Status: Active Protocol: Activity Type Activity Date Activity User E-sign Co-sign Detail Recorded Client Recorded Date Recorded By Document 06/04/23 08:[address] [facility] Desktop 06/04/23 08:[address] [facility] 06/04/23 08:21 Wound Center Nurse 1 #1 R Axilla cluster -Combined with other wound No -Current Size (cm) - Length 0.1 -Current Size (cm) - Width 0.1 -Current Size (cm) - Depth 0.1 -Total Square Cm 0.01 -Date of Last Picture (Recall this 06/04/23 field) -Photo Taken Yes -Epithelialization Large 67-100% -Tunneling No -Undermining/Tunneling No -Circular Undermining No -Exudate Amt None Present -Texture (Mariaelena-wound Skin Appearance) Assessed, Scarring -Moisture (Mariaelena-wound Skin Appearance) Assessed,Dry/ Scaly -Color (Mariaelena-wound Skin Appearance) Assessed -Temperature (Mariaelena-wound Skin No Abnormality Appearance) (Pt Warm) -Tenderness on Palpation (Mariaelena-wound No Skin Appearance) -Ulcer Cleansing Rinsed/ Irrigated with Saline -Foul Odor after Cleansing No -Anesthetic Used 5% Lidocaine Gel - Nurse 2 - General Ulcer CM Notes Start: 05/28/23 08:19 Freq: Status: Active Protocol: Activity Type Activity Date Activity User E-sign Co-sign Detail Recorded Client Recorded Date Recorded By Document 06/04/23 09:03 Laptop 06/04/23 09:03 06/04/23 09:03 Wound Center Nurse 2 -Correct Patient No -Correct Side, Site, Position No -Correct Procedure No -Procedure Performed No -Post Debridement (cm) - Length 0 -Post Debridement (cm) - Width 0 -Post Debridement (cm) - Depth 0 -Total Square (Post) (cm) 0 -Area of Debridement (cm) - Length 0 -Area of Debridement (cm) - Width 0 -Total Square (Area) (cm) 0 -Wound/Ulcer Outcome Healed- Epithelialized Pain Scale: 0-10 Numeric Is Patient Pain Free? Yes - Nurse 3 - General Ulcer D/C NN Start: 05/28/23 08:19 Freq: Status: Active Protocol: Activity Type Activity Date Activity User E-sign Co-sign Detail Recorded Client Recorded Date Recorded By Document 05/28/23 08:[address] [facility] Desktop 05/28/23 08:20 BMF Document 06/04/23 09:04 Laptop 06/04/23 09:04 05/28/23 06/04/23 08:19 09:04 Vital Signs Temperature (97.8 F-99.1 F) 96.9 F L Temperature Source Temporal Pulse Rate (60-100) 69 Pulse Location Monitor Respiratory Rate (12-18) 16 Respiratory rate source Observation Oxygen Delivery Method Room Air Blood Pressure (90/60-120/80) 125/63 H Blood Pressure Mean (mm Hg) 83 Source Monitor Position Sitting Blood Pressure Location Left Arm Pain Scale: 0-10 Numeric Is Patient Pain Free? Yes Yes Wound Care Center Nurse 3 #1 R Axilla cluster -Ulcer Cleansing Rinsed/ Irrigated with Saline -Foul Odor after Cleansing No -Primary Dressing Applied Promogran Janessa Matter -Other Dressing secured w/ bandaid. ok'd per cm -Primary Dressing Covered/Secured with Dry Gauze -Promogran Janessa Matter 1 Treatment Response Procedure Tolerated Well WC - Visit Discharge Discharge Condition Stable Stable Ambulatory Status Ambulatory Ambulatory Transportation Private Auto Private Auto Medication Reconcilliation completed & Yes provided to patient/care provider Clinical Summary of Care Provided Yes Assessment/Plan Assessment/Plan (1) Skin ulcer of axilla with fat layer exposed: CODE(S): L98.492 - Non-pressure chronic ulcer of skin of other sites with fat layer exposed (2) Right axillary hidradenitis: CODE(S): L73.2 - Hidradenitis suppurativa (3) Stiffness of right shoulder joint: CODE(S): M25.611 - Stiffness of right shoulder, not elsewhere classified PLAN: Plan Patient evaluated at the wound healing center today. She is healed today. Instructed her to place lotion a couple times a day onto the healed ulcer and massage to help soften the scarring. She continues to have decreased range of motion of her right shoulder. Encouraged her to continue her PT but also to do her home excerises to help get as much ROM of her shoulder as possible. She has yet to make an appointment to see a counselor to help her with her anxiety. She has seen her PCP and followed up with her. A wound culture was obtained on 02/07/23 and was positive for MSSA. She was initially started on Augmentin but then she said she was allergic to it (unsure of what her allergy is), her antibiotic was changed to Doxycycline, which she completed. Operative culture shows LONG. She completed the Linezolid. She has returned to work. She states that she is able to do her job. Follow up as needed.
== END 2023-06-05 15:12 | disposition home or self-care (01) ==
LOC: WC 08:30
PROVIDERS: PCP Nurse Practitioner Family; Referring Provider Nurse Practitioner Family; Visit Provider Nurse Practitioner Family
DX: Z09 Encounter for follow-up examination after completed treatment for conditions other than malignant neoplasm (principal); L30.9 Dermatitis, unspecified; M25.611 Stiffness of right shoulder, not elsewhere classified; Z79.899 Other long term (current) drug therapy
CPT/HCPCS: 99211; 99213; G0463

== ENCOUNTER 2023-07-09 08:52 | Outpatient (RCR) | payer OTHER, SELFPAY | END 2023-07-25 23:59 | disposition home or self-care (01) | LOC: WC 08:52 | PROVIDERS: PCP Nurse Practitioner Family; Referring Provider Nurse Practitioner Family; Visit Provider Nurse Practitioner Family | DX: Z09 Encounter for follow-up examination after completed treatment for conditions other than malignant neoplasm (principal) ==

== ENCOUNTER 2024-02-13 13:45 | Outpatient (RCR) | payer OTHER, SELFPAY ==
[2024-02-04 09:38] VITALS: BP 144/85; PULSE 92; RESP 18; TEMP 36.7; BMI 23.3
--- NOTE | 2024-02-04 10:32 | PCM.WC.HP ---
History of Present Illness Date of Service: 02/04/24 Chief Complaint: right axilla pain and redness History of Wound: 53 year old woman who is known to me. She previously had excision of right axilla hidradenitis 10/15. She works in Housekeeping at [employer] and states she may be allergic to the chemicals used for cleaning. She has a history of eczema and had been on Dupixent in the past. She has seen a Dog Boarder in the past for the eczema. She also has a history of anxiety. She denies going to counseling as recommended in the past. She states that she needs a new place to live because the chapo she is living with is mean and tells her she is fat. Today she comes in with concerns of pain and erythema of her right axilla that has been going on for several weeks. She states that it is very painful and there is an odor. At present, she denies fever, chills, nausea, vomiting. Progress of Wound: No open wound. Right axilla is pink and shiny. Slight white/cheesy discharge in crease of axilla.Clinically looks like yeast. [facility] Medical History (Updated 02/04/24 @ 12:48 by Tamika Pimentel NP, INTERNAL SALES ENGINEER-C) Open wound of right axillary region Wears glasses Post-menopausal Anxiety Anemia Restless legs Non-smoker Bunion Eczema Seasonal allergies Home Medications ?Medication ?Instructions ?Recorded ?Last Taken ?Type docusate sodium 100 mg capsule 100 mg PO BID 30 days #60 caps 10/06/22 Unknown Rx (Colace) doxycycline monohydrate 100 mg 100 mg PO BID 14 days #28 tabs 10/06/22 Unknown Rx tablet oxycodone-acetaminophen 5 mg-325 1 tab PO 4X/DAY PRN pain (scale 10/06/22 Unknown Rx mg tablet (Endocet) score 7-10) 7 days #28 tabs promethazine 25 mg tablet 25 mg PO TID PRN nausea and 10/06/22 Unknown Rx vomiting 10 days #30 tabs diazepam 5 mg tablet (Valium) 5 mg PO BID PRN muscle spasm 7 10/13/22 Unknown Rx days #14 tabs gabapentin 100 mg capsule 200 mg (2 x 100 mg) PO BID 30 days 10/13/22 Unknown Rx (Neurontin) #120 caps escitalopram oxalate 10 mg tablet 10 mg PO DAILY 30 days #30 tabs 11/01/22 Unknown Rx (Lexapro) doxycycline monohydrate 100 mg 100 mg PO BID 14 days #28 tabs 02/12/23 Unknown Rx tablet nystatin 100,000 unit/gram topical 1 applic topical BID 14 days #30 02/04/24 Unknown Rx powder grams Allergy/AdvReac Type Severity Reaction Status Date / Time azithromycin Allergy Intermediate Hives Verified 10/11/22 08:55 clindamycin Allergy Intermediate Hives Verified 10/11/22 08:55 midazolam (From Versed) Allergy Rash Verified 10/11/22 08:55 Family History (Reviewed 02/04/24 @ 11:30 by Tamika Pimentel INTERNAL SALES ENGINEER, INTERNAL SALES ENGINEER-C) Son Epilepsy Seizures Surgical History (Reviewed 02/04/24 @ 11:30 by Tamika Pimentel INTERNAL SALES ENGINEER, INTERNAL SALES ENGINEER-C) History of bunionectomy Social History (Reviewed 02/04/24 @ 11:30 by Tamika Pimentel INTERNAL SALES ENGINEER, INTERNAL SALES ENGINEER-C) Smoking Status: Never smoker alcohol intake: never substance use type: does not use additional social history: Does Take Aspirin Does Take Ibuprofen ROS Constitutional Constitutional: Denies fever(s) Eyes Eyes: Reports none ENT HEENT: Reports none Cardiovascular Cardiovascular: Denies chest pain or dyspnea Respiratory/Chest Respiratory/Chest: Denies cough or dyspnea Gastrointestinal Gastrointestinal: Reports none Musculoskeletal Musculoskeletal: Reports as per HPI Integumentary Integumentary: Reports as per HPI Neurologic Neurologic: Denies headache(s) Psychiatric Psychiatric: Reports anxiety Endocrine Endocrinology: Reports none Allergic/Immunologic Allergic/Immunologic: Reports as per HPI and eczemia Vital Signs Vital Signs Vital Signs: 02/04/24 09:38 Temperature 98.0 F Temperature Source Temporal Pulse Rate 92 Respiratory Rate 18 Blood Pressure 144/85 H Blood Pressure Mean 104 Blood Pressure Source Monitor Blood Pressure Position Semi-Fowlers Blood Pressure Location Left Arm Oxygen Delivery Method Room Air Weight Weight: 136 lb Body Mass Index (BMI) 23.3 Physical Exam Const alert and oriented x3 General Appearance: anxious and other Weepy. HEENT normocephalic Head and Scalp: atraumatic Eyes General Eye: normal appearance of both eyes Resp normal respiratory effort and clear to auscultation bilaterally Effort and Inspection: able to speak in complete sentences Cardio regular rate and regular rhythm Back/Spine normal ROM Extremity normal capillary refill Extremity Narrative: Right shoulder still does not have full range of motion. Peripheral Pulses: Yes pulses 2+ throughout Skin Skin Narrative: No open wound. Right axilla is pink and shiny. Slight thick, white, cheesy discharge in crease of axilla. Clinically looks like yeast. Neuro CN's II-XII intact bilaterally Psych cooperative Psych Narrative: She is anxious and weepy. Appearance: well kempt Debridement Note Debridement Note No debridement was completed: No debridement was completed today Post-Debridement Measurements and Additional Note: Post-Debridement Measurements/Treatment - Nurse 1 - General Ulcer Assessment Start: 02/04/24 09:38 Freq: Status: Active Protocol: NASRA.BARBIE Activity Type Activity Date Activity User E-sign Co-sign Detail Recorded Client Recorded Date Recorded By Document 02/04/24 09:38 KW ][ 02/04/24 09:50 KW 02/04/24 09:38 - Today's Visit Information Type of service Initial Visit Arrival Mode Ambulatory Patient Identification Verified (Name & Yes ) Height and Weight Height 5 ft 4 in Weight 136 lb Weight in Pounds 136.0 lbs Weight Measurement Method Estimated by Patient Body Mass Index (BMI) 23.3 BMI Classification Normal BSA - Michael 1.66 Vital Signs Temperature (97.8 F-99.1 F) 98.0 F Temperature Source Temporal Pulse Rate (60-100) 92 Pulse Location Monitor Respiratory Rate (12-18) 18 Respiratory rate source Observation Oxygen Delivery Method Room Air Blood Pressure (90/60-120/80) 144/85 H Blood Pressure Mean 104 Source Monitor Position Semi-Fowlers Blood Pressure Location Left Arm History Since Last Visit- (Skip if this is Patient's initial visit) Left Footwear Regular Shoe Right Footwear Regular Shoe Pain Scale: 0-10 Numeric Is Patient Pain Free? Yes Communication Assessment Preferred language Yoruba Honey Processor Required No Able to Read Yes Able to Write Yes Right Hearing Abillity Normal Left Hearing Abillity Normal Visual Assistive Devices None Teaching Assessment Preferences Verbal,Written, Demonstration Barriers to Learning None Readiness To Learn Excellent Willingness to Engage in Self Management High Activies Readiness to Engage in Self Management High Activities Anxiety Level Anxious Cooperation Cooperative Perception Coherent Interest in Health Problem Asks Questions Education Importance Acknowledges Need Does Patient Smoke tobacco or other No substances Is Patient Diabetic No Functional Assessment Recent Decline in Ability to Perform Denies Any Declines Culture/Quaker/Assembly Repairer Cultural/Quaker Needs that may affect No Treatment Plan Would you allow our hospital appian developer to No meet you for the purpose of spiritual/ emotional support? Assembly Repairer to contact place of alevism No WC - Nurse 1 - General Ulcer Measurement Start: 02/04/24 09:38 Freq: Status: Active Protocol: Activity Type Activity Date Activity User E-sign Co-sign Detail Recorded Client Recorded Date Recorded By Document 02/04/24 09:38 KW ][ 02/04/24 09:50 KW 02/04/24 09:38 Wound Center Nurse 1 #2 RT AXILLA -Current Size (cm) - Length 0.1 -Current Size (cm) - Width 0.1 -Current Size (cm) - Depth 0.1 -Total Square Cm 0.01 -Date of Last Picture (Recall this 02/04/24 field) -Exudate Amt Small -Exudate Type Serosanguineous -Wound Margin Indistinct, Non -Visible -Granulation Amt Large (67-100%) -Granulation Quality Red -Texture (Mariaelena-wound Skin Appearance) Assessed -Moisture (Mariaelena-wound Skin Appearance) Assessed -Color (Mariaelena-wound Skin Appearance) Assessed -Temperature (Mariaelena-wound Skin No Abnormality Appearance) (Pt Warm) -Tenderness on Palpation (Mariaelena-wound No Skin Appearance) -Ulcer Cleansing Rinsed/ Irrigated with Saline -Foul Odor after Cleansing No WC - Nurse 2 - General Ulcer CM Notes Start: 02/04/24 09:38 Freq: Status: Active Protocol: Activity Type Activity Date Activity User E-sign Co-sign Detail Recorded Client Recorded Date Recorded By Document 02/04/24 10:13 [id number] 02/04/24 10:14 02/04/24 10:13 Wound Center Nurse 2 -Correct Patient No -Correct Side, Site, Position No -Correct Procedure No Pain Scale: 0-10 Numeric Is Patient Pain Free? Yes Charges/Coding Visit Charges Office Visits / Consults: 15544 OV L3 Est 20min Assessment/Plan Assessment/Plan (1) Candidal skin infection: CODE(S): B37.2 - Candidiasis of skin and nail (2) Stiffness of right shoulder joint: CODE(S): M25.611 - Stiffness of right shoulder, not elsewhere classified (3) Anxiety: CODE(S): F41.9 - Anxiety disorder, unspecified PLAN: Plan Patient evaluated at the wound healing center today. She does not have an open wound. Her right axilla clinically looks like yeast. Treatment will be nystatin powder twice daily. Instructed patient that she needs to wash this at least once daily and pat dry. Apply powder after that. Patient is very tearful today. She states that she needs to find a new place to live because the chapo she is living with is very mean to her. She also has not been going to counseling as recommended in the past. Referred her to [facility] to see if they can help her with both counseling and home placement. She will follow-up in 2 weeks because that works best for her work schedule.
[2024-02-13 13:42] VITALS: BP 131/87; PULSE 71; RESP 18; TEMP 36.2; BMI 23.3
--- NOTE | 2024-02-13 13:43 | WC ---
pt Right axilla no wound noted. skin intact. no drainage.
--- NOTE | 2024-02-13 16:40 | PCM.WC.PN ---
History of Present Illness Date of Service: 02/13/24 Chief Complaint: right axilla pain and redness History of Wound: 53 year old woman who is known to me. She previously had excision of right axilla hidradenitis 10/15. 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 She has a history of eczema and had been on Dupixent in the past. She has seen a Prototype Engineer in the past for the eczema. She also has a history of anxiety. She denies going to counseling as recommended in the past. She states that she needs a new place to live because the chapo she is living with is mean and tells her she is fat. Today she comes in with concerns of pain and erythema of her right axilla that has been going on for several weeks. She states that it is very painful and there is an odor. At present, she denies fever, chills, nausea, vomiting. Progress of Wound: No open wound. Right axilla yeast rash, pink rash, has resolved with the use of nystatin powder. She states she still has a couple more days left of the using the powder. She has concern that she still sometimes perspires in her right axilla, even though her sweat glands were removed. Subjective Subjective Patient states that her right axilla rashes much improved since starting the nystatin powder. Objective Data Objective Data Vital Signs: Vital Signs Temp Pulse Resp BP O2 Del Method 97.1 F L 71 18 131/87 H Room Air 02/13/24 13:42 02/13/24 13:42 02/13/24 13:42 02/13/24 13:42 02/04/24 09:38 Oxygen Delivery Method Room Air Weight: 136 lb Body Mass Index (BMI) 23.3 Charges/Coding Visit Charges Office Visits / Consults: [id number] OV L3 Est 20min Physical Exam Const alert and oriented x3 General Appearance: anxious and other Weepy. HEENT normocephalic Head and Scalp: atraumatic Eyes General Eye: normal appearance of both eyes Resp normal respiratory effort and clear to auscultation bilaterally Effort and Inspection: able to speak in complete sentences Cardio regular rate and regular rhythm Back/Spine normal ROM Extremity normal capillary refill Extremity Narrative: Right shoulder still does not have full range of motion. Peripheral Pulses: Yes pulses 2+ throughout Skin Skin Narrative: Right axilla rash has resolved with the use of nystatin powder. Neuro CN's II-XII intact bilaterally Psych cooperative Psych Narrative: She is anxious and weepy. Appearance: well kempt Debridement Note Debridement Note Post-Debridement Measurements and Additional Note: Post-Debridement Measurements/Treatment - Nurse 1 - General Ulcer Assessment Start: 02/04/24 09:38 Freq: Status: Active Protocol: JOSÉ Activity Type Activity Date Activity User E-sign Co-sign Detail Recorded Client Recorded Date Recorded By Document 02/04/24 09:38 KW ][ 02/04/24 09:50 KW Document 02/13/24 13:42 RB [id number] 02/13/24 13:43 RB 02/04/24 02/13/24 09:38 13:42 - Today's Visit Information Type of service Initial Visit Follow-up Visit (Physician/TURKEY PINNER ) Arrival Mode Ambulatory Ambulatory Transfer Assistance None Patient Identification Verified (Name & Yes Yes ) Patient Requires Transmission-Based No Precautions Height and Weight Height 5 ft 4 in Weight 136 lb Weight in Pounds 136.0 lbs Weight Measurement Method Estimated by Patient Body Mass Index (BMI) 23.3 23.3 BMI Classification Normal Normal BSA - Michael 1.66 Vital Signs Temperature (97.8 F-99.1 F) 98.0 F 97.1 F L Temperature Source Temporal Temporal Pulse Rate (60-100) 92 71 Pulse Location Monitor Monitor Respiratory Rate (12-18) 18 18 Respiratory rate source Observation Observation Oxygen Delivery Method Room Air Blood Pressure (90/60-120/80) 144/85 H 131/87 H Blood Pressure Mean (mm Hg) 104 101 Source Monitor Monitor Position Semi-Fowlers Semi-Fowlers Blood Pressure Location Left Arm Left Arm History Since Last Visit- (Skip if this is Patient's initial visit) Have you changed medications since your No last visit? Any new allergies or adverse reactions No Had a fall/change in ADL's that may No increase risk of falls Signs or symptoms of abuse and/or No neglect since last visit Have you been in the hospital since your No last visit? Has dressing in place as prescribed No Has compression in place as prescribed No Has offloadiing in place as prescribed No Experienced any changes in pain level or No management Left Footwear Regular Shoe Right Footwear Regular Shoe Pain Scale: 0-10 Numeric Is Patient Pain Free? Yes Yes Communication Assessment Preferred language Chinese Web Editor Required No Able to Read Yes Able to Write Yes Right Hearing Abillity Normal Left Hearing Abillity Normal Visual Assistive Devices None Teaching Assessment Preferences Verbal,Written, Demonstration Barriers to Learning None Readiness To Learn Excellent Willingness to Engage in Self Management High Activies Readiness to Engage in Self Management High Activities Anxiety Level Anxious Cooperation Cooperative Perception Coherent Interest in Health Problem Asks Questions Education Importance Acknowledges Need Does Patient Smoke tobacco or other No substances Is Patient Diabetic No Functional Assessment Recent Decline in Ability to Perform Denies Any Declines Culture/Mosque/Experimental Physicist Cultural/Mosque Needs that may affect No Treatment Plan Would you allow our hospital nutritional yeast supervisor to No meet you for the purpose of spiritual/ emotional support? Experimental Physicist to contact place of uatsdin No 02/13/24 13:43 Wound Center by Magaly Floyd pt Right axilla no wound noted. skin intact. no drainage. Initialized on 02/13/24 13:43 - END OF NOTE WC - Nurse 1 - General Ulcer Measurement Start: 02/04/24 09:38 Freq: Status: Active Protocol: Activity Type Activity Date Activity User E-sign Co-sign Detail Recorded Client Recorded Date Recorded By Document 02/04/24 09:38 KW ][ 02/04/24 09:50 KW 02/04/24 09:38 Wound Center Nurse 1 #2 RT AXILLA -Current Size (cm) - Length 0.1 -Current Size (cm) - Width 0.1 -Current Size (cm) - Depth 0.1 -Total Square Cm 0.01 -Date of Last Picture (Recall this 02/04/24 field) -Exudate Amt Small -Exudate Type Serosanguineous -Wound Margin Indistinct, Non -Visible -Granulation Amt Large (67-100%) -Granulation Quality Red -Texture (Mariaelena-wound Skin Appearance) Assessed -Moisture (Mariaelena-wound Skin Appearance) Assessed -Color (Mariaelena-wound Skin Appearance) Assessed -Temperature (Mariaelena-wound Skin No Abnormality Appearance) (Pt Warm) -Tenderness on Palpation (Mariaelena-wound No Skin Appearance) -Ulcer Cleansing Rinsed/ Irrigated with Saline -Foul Odor after Cleansing No WC - Nurse 2 - General Ulcer CM Notes Start: 02/04/24 09:38 Freq: Status: Active Protocol: Activity Type Activity Date Activity User E-sign Co-sign Detail Recorded Client Recorded Date Recorded By Document 02/04/24 10:13 [id number] 02/04/24 10:14 Document 02/13/24 13:50 [id number] 02/13/24 13:51 02/04/24 02/13/24 10:13 13:50 Wound Center Nurse 2 -Correct Patient No -Correct Side, Site, Position No -Correct Procedure No Pain Scale: 0-10 Numeric Is Patient Pain Free? Yes Yes - Nurse 3 - General Ulcer D/C NN Start: 02/04/24 09:38 Freq: Status: Active Protocol: Activity Type Activity Date Activity User E-sign Co-sign Detail Recorded Client Recorded Date Recorded By Document 02/13/24 13:52 [id number] 02/13/24 13:52 02/13/24 13:52 Is Patient Pain Free? Yes WC - Visit Discharge Discharge Condition Stable Ambulatory Status Ambulatory Transportation Private Auto Clinical Summary of Care Provided Yes Notes: no wounds, has rx for nystatin powder Assessment/Plan Assessment/Plan (1) Candidal skin infection: CODE(S): B37.2 - Candidiasis of skin and nail (2) Stiffness of right shoulder joint: CODE(S): M25.611 - Stiffness of right shoulder, not elsewhere classified (3) Anxiety: CODE(S): F41.9 - Anxiety disorder, unspecified PLAN: Plan Patient evaluated at the wound healing center today. She does not have an open wound. Her right axilla yeast rash has resolved with the use of nystatin powder. She states that the rash resolved over the past week. Instructed her that she can continue the nystatin powder for 7 days after the rash completely resolved. She has concerns that she is still perspiring from her right axilla where she had her hidradenitis excised. She thought that she should not sweat in this area any longer. Educated her that she still has sweat glands and it is normal to perspire where there are sweat glands. Follow up as needed.
--- NOTE | 2024-02-14 10:54 | WC ---
PHOTO 02/14/24 RIGHT AXILLA
== END 2024-02-14 09:21 | disposition home or self-care (01) ==
LOC: WC 13:45
PROVIDERS: PCP Nurse Practitioner Family; Referring Provider Nurse Practitioner Family; Visit Provider Nurse Practitioner Family
DX: M25.611 Stiffness of right shoulder, not elsewhere classified (principal); B37.2 Candidiasis of skin and nail; L30.9 Dermatitis, unspecified; F41.9 Anxiety disorder, unspecified; Z79.899 Other long term (current) drug therapy; Z78.0 Asymptomatic menopausal state
CPT/HCPCS: 99213; G0463